=== PATIENT | female | born 1960 | race Caucasian/White ===

== ENCOUNTER 2018-07-01 11:57 | Inpatient (IN) | payer OTHER, SELFPAY ==
[2018-07-01] VITALS (9 sets, daily range): BP systolic 93–131; BP diastolic 43–73; PULSE 76–85; RESP 11–19; TEMP 36.7–37.9; O2SAT 94–97
--- NOTE | 2018-07-01 12:31 | ED.GENADUL_ITS ---
Discharge Plan Disposition Patient Disposition: [facility] INPATIENT Condition: Stable Discharge Details Chief Complaint: Abd Prob Clinical Impression: Acute appendicitis Primary Care Provider: Brenda Greene ED Provider: Roman Guevara Home Meds and New Rx's Prescriptions: No Action acetaminophen [Tylenol] 325 mg tablet 650 mg PO Q6H PRNRF: 0 calcium carbonate [Tums] 300 mg (750 mg) tablet,chewable 300 mg PO QID PRNRF: 0 ibuprofen 200 mg tablet 200 mg PO QID PRNRF: 0 prochlorperazine maleate [Compazine] 10 mg tablet 10 mg PO TID PRNRF: 0 Medical Decision Making This is a pleasant 58-year-old female who presents today for evaluation of abdominal pain, 2 episodes of vomiting. Pain is in the left lower and right lower quadrants. No urinary symptoms. She did have a small amount of bowel movement earlier today, vomit is nonbloody, but bowel movements are nonbloody. She does have a concerning history of malignancy in the left breast with chemotherapy, as well as a , and a laparoscopy after a molar . Bowel sounds are present, and there is no signs of distention, however because of her surgical history and symptoms and concern for obstruction, differential also includes appendicitis or diverticulitis. We will get a CT scan with oral and IV contrast for further evaluation. Signs and symptoms are inconsistent with mesenteric ischemia, with no pain out of proportion, and she is not have a history of A. fib or blood clots. We will treat the patient's pain, rehydrate as she looks notably dehydrated, and reassess. 3:25 PM Patient's laboratory workup is returned, she does demonstrate evidence of neut ropenia. Platelets are stable at 105, renal function stable. Absolute neutrophil count is low at 0.13. Lipase is normal, liver function is normal. CT scan results have returned and per Dr. Collazo there is evidence of an acute appendicitis. We have contacted surgery Dr. Harding, he has come and seen and assessed the patient, the patient will be brought to the OR for definitive surgical management. Enteropenem will be started. I have extensively reviewed the treatment plan with the patient. I have addressed all patient concerns at this time. I have also discussed the plan with the admitting physician and they agree with the current assessment and plan and have agreed to assume responsibility for the patient. All parties demonstrate verbal understanding and agreement with our assessment and plan at this time. Exam(s) a CT:CT abdomen & pelvis w SYMPTOMS/DIAGNOSIS: COMPLETED CHEMO FOR BREAST CA LAST WEEK, MULTIPLE ABDOMINAL SURGERIES, ? OBSTRUCTION ABDOMINAL AND PELVIC CT: CT examination of the abdomen and pelvis was performed with a bolus infusion of 100 cc of Omnipaque 350 and ingestion of dilute barium. Images obtained through the lung bases are unremarkable. Note is made of apparent thickening of the distal esophageal wall; findings could be on the basis of inflammation, but neoplastic disease is not excluded and endoscopy is suggested for further evaluation. The spleen is unremarkable in appearance. Caudate lobe of the liver contains an apparent hemangioma with peripheral nodular enhancement. There is cholelithiasis without evidence of biliary dilatation or gallbladder wall thickening. The pancreas is unremarkable. Adrenals and kidneys appear normal. No evidence of urinary tract calcification or obstruction. Abdominal aorta is of normal diameter and no major vascular abnormality is seen. No abdominal or pelvic adenopathy seen. Appendix is dilated at about 14 mm. There is apparent mild periappendiceal fat edema raising the possibility of acute appendicitis. There is a possible appendicolith in the appendiceal neck. No evidence of diverticulitis or bowel obstruction. Uterus is enlarged and contains an apparent partially calcified heterogeneous mass, which may represent a uterine fibroid. The possibility that this represents an endometrial mass is not excluded. Correlation with pelvic ultrasound recommended. CONCLUSION: 1. Findings suggesting acute appendicitis. 2. Large uterine mass. Pelvic ultrasound and/or comparison with old images requested for further evaluation. 3. Cholelithiasis. 4. Esophageal wall thickening, inflammatory versus neoplastic process. Endoscopy recommended. HPI General Date/Time Provider Initiated Documentation: 07/01/18 12:08 . HPI Narrative: This is a 58-year-old female with a past medical history of breast cancer for which she is currently receiving chemotherapy, as well as a past medical history of left breast surgery, , molar requiring laparoscopy and radiation therapy, as well as a known gallstone. She has had her first dose of chemotherapy, and she was scheduled to have her second today. Unfortunately starting last night the patient developed mild abdominal pain in the left lower and right lower abdominal quadrants. She has associated nausea as well as 2 episodes of vomiting. She has not eaten anything since last night has been able to keep small amounts of water down. She denies any dysuria, hematuria, increased urinary frequency, hematochezia, melena, acholic stool. Last bowel movement was last night and this morning with small amounts of nonbloody normal stool. She did take Tylenol but this did not change her symptoms. She denies any flank tenderness. Patient denies any other modifying factors or other complaints at this time. She denies a history of small bowel obstruction. Patient denies any IV or illicit drug use or pertinent family history. Related Data Home Medications Medication Instructions Recorded Confirmed acetaminophen 325 mg tablet 650 mg PO Q6H PRN 06/16/18 07/01/18 calcium carbonate 300 mg (750 mg) 300 mg PO QID PRN tab 06/16/18 07/01/18 chewable tablet ibuprofen 200 mg tablet 200 mg PO QID PRN 06/16/18 07/01/18 prochlorperazine maleate 10 mg 10 mg PO TID PRN 06/16/18 07/01/18 tablet Allergies Allergy/AdvReac Type Severity Reaction Status Date / Time No Known Allergies Allergy Verified 07/01/18 12:19 General Stated Complaint: Abd Prob SATISH: 2 Review of Systems Review of Systems All systems reviewed & are unremarkable except as noted in HPI and below PFSH Surgical History History of lumpectomy of left breast (Acute ~2017) H/O: section (Chronic ~1984) Family History Mother Ovarian cancer Father Alcohol abuse Lung cancer Sister Heart disease Sister Heart disease Maternal Grandfather Lung cancer Son Asthma Social History highest education level completed: some college, no degree frequency: decline to answer duration: decline to answer Smoking and Tabacco status: Former Tobacco Use quit date: 05/24/84 second hand exposure: Yes alcohol intake: current alcohol intake frequency: holidays/special occasions only Alcohol type: beer and hard liquor substance use type: does not use dolly/spiritism: [employer] special dolly needs: No Seatbelt use: always Helmet use: Yes Exam Narrative Exam Narrative: 1.Const: Well-nourished, Well-developed, appearing stated age 2.Eyes: PERRL, no conjunctival injection, and symmetrical lids. 3.ENT: Atraumatic external nose and ears. Notably dry MM. Neck: Symmetric, trachea midline, No thyromegaly. 4.CVS: +S1/S2, No murmurs or gallops. Peripheral pulses 2+ and equal in all extremities. Brisk capillary refill in all extremities. 5.RESP: Unlabored respiratory effort. Clear to auscultation bilaterally. No wheezes rales or rhonchi 6.GI: Soft, Nondistended, No hepatosplenomegaly. Notable tenderness in the right lower and left lower abdominal quadrants. No flank or CVA tenderness. Negative Gaines sign, mild pain at McBurney's point. 7.MSK: Normocephalic/Atraumatic, Extremities w/o deformity or ttp No cyanosis or clubbing, Normal movement of all extremities 8.Skin: Warm, Dry. No rashes or lesions. 9.Neuro: molder fitting II-XII grossly intact. Sensation grossly intact, no focal neurologic deficits. 10.Psych: (AAO) x3. Appropriate mood and affect Course Vital Signs Temperature 36.7 C 07/01/18 12:10 Pulse 77 07/01/18 12:10 Respiratory Rate 18 07/01/18 12:10 Blood Pressure 131/56 L 07/01/18 12:10 Pulse Oximetry 97 07/01/18 12:10 Temperature 36.7 C 07/01/18 12:10 Temperature Source Skin 07/01/18 12:10 Pulse 77 07/01/18 12:10 Respiratory Rate 18 07/01/18 12:10 Blood Pressure 131/56 L 07/01/18 12:10 Blood Pressure Position Supine 07/01/18 12:10 Pulse Oximetry 97 07/01/18 12:10 Oxygen Delivery Method Room Air 07/01/18 12:10 Oxygen Flow Rate 0 07/01/18 12:10 Pain Level 6 07/01/18 12:13 Comment 07/01/18 12:10
[2018-07-01 12:52] LABS: Lactate-non-spesis 0.9 mmol/l (0.6-1.4)
[2018-07-01] MEDS: Normal Saline 1,000 ML 1000 ML IV (12:55)
[2018-07-01] MEDS: Ondansetron 4 MG/2 ML VIAL IVP ×2 (12:56→15:38)
[2018-07-01] MEDS: MORPHine 10 MG/ML VIAL 4 MG IVP ×2 (12:56→13:20)
[2018-07-01 12:57] LABS: Absolute Basophil Count 0.02 k/cumm (0.0-0.2); Absolute Eosinophil Count 0.01 k/cumm (0.0-0.7); Absolute Lymphocyte Count 0.44 k/cumm (1.2-3.4); Absolute Monocyte Count 0.08 k/cumm (0.11-0.7); Basophils % 2.9; Eosinophils % 1.5; HCT 35.6 % (36.0-46.0); HGB 11.6 g/dL (12.0-15.5); Lymphocytes % 64.7; Mean Corp. HGB Concentration 32.6 g/dL (32.0-36.0); Mean Corpuscular Hemoglobin 30.4 pg (27.0-33.0); Mean Corpuscular Volume 93.4 fL (80-95); Mean Platelet Volume 10.5 fL (8.0-11.0); Monocytes % 11.8; Neutrophils % 19.1; RBC 3.81 m/cumm (4.00-5.20); RBC Distribution Width 12.1 % (11.7-14.6)
[2018-07-01 13:05] LABS: PTT Activated 27.1 sec (21.0-31.4)
[2018-07-01 13:12] LABS: ALT 24 U/L (12-78); AST 18 U/L (15-37); Albumin 3.2 g/dL (3.4-5.0); Alkaline Phosphatase 70 U/L (46-116); Anion Gap 6.9 mmol/L (3-11); BUN 19 mg/dL (7-18); Bilirubin, Total 0.4 mg/dL (0.2-1.0); CO2 28.1 mmol/L (21.0-32.0); CREATININE 0.62 mg/dL (0.55-1.02); Chloride 104 mmol/L (98-107); Glucose 132 mg/dL (70-100); Lipase 57 U/L (73-393); Potassium 3.7 mmol/L (3.5-5.1); Sodium 139 mmol/L (136-145); Total Protein 6.8 g/dL (6.4-8.2)
[2018-07-01 13:13] LABS: Absolute Neutrophil Count 0.13 k/cumm (1.2-6.7); White Blood Cell Count 0.68 k/cumm (4.4-10.8)
[2018-07-01 13:14] LABS: Diff Comment Agrees w/ Instrument; Platelet Count 105 x1000/uL (130-400); RBC Morphology Normal
[2018-07-01 13:16] LABS: Calcium 8.7 mg/dL (8.5-10.1)
--- NOTE | 2018-07-01 14:39 | DI.CT_ITS ---
SYMPTOMS/DIAGNOSIS: COMPLETED CHEMO FOR BREAST CA LAST WEEK, MULTIPLE ABDOMINAL SURGERIES, ? OBSTRUCTION ABDOMINAL AND PELVIC CT: CT examination of the abdomen and pelvis was performed with a bolus infusion of 100 cc of Omnipaque 350 and ingestion of dilute barium. Images obtained through the lung bases are unremarkable. Note is made of apparent thickening of the distal esophageal wall; findings could be on the basis of inflammation, but neoplastic disease is not excluded and endoscopy is suggested for further evaluation. The spleen is unremarkable in appearance. Caudate lobe of the liver contains an apparent hemangioma with peripheral nodular enhancement. There is cholelithiasis without evidence of biliary dilatation or gallbladder wall thickening. The pancreas is unremarkable. Adrenals and kidneys appear normal. No evidence of urinary tract calcification or obstruction. Abdominal aorta is of normal diameter and no major vascular abnormality is seen. No abdominal or pelvic adenopathy seen. Appendix is dilated at about 14 mm. There is apparent mild periappendiceal fat edema raising the possibility of acute appendicitis. There is a possible appendicolith in the appendiceal neck. No evidence of diverticulitis or bowel obstruction. Uterus is enlarged and contains an apparent partially calcified heterogeneous mass, which may represent a uterine fibroid. The possibility that this represents an endometrial mass is not excluded. Correlation with pelvic ultrasound recommended. CONCLUSION: 1. Findings suggesting acute appendicitis. 2. Large uterine mass. Pelvic ultrasound and/or comparison with old images requested for further evaluation. 3. Cholelithiasis. 4. Esophageal wall thickening, inflammatory versus neoplastic process. Endoscopy recommended.
[2018-07-01] MEDS: Omnipaque 350 MG/ML 100 ML BTL IJ (14:42)
[2018-07-01] MEDS: Normal Saline Flush 10 ML SYR IVP ×2 (14:43→20:51)
[2018-07-01] MEDS: Breeza Beverage 473 ML BTL PO ×2 (14:44)
[2018-07-01 14:58] LABS: Bilirubin Negative (Negative); Blood Trace-intact (Negative); Clarity Clear; Glucose Negative (Negative); Ketones Negative (Negative); Leukocyte Esterase Negative (Negative); Nitrite Negative (Negative); Specific Gravity <= 1.005 (1.005-1.025); Urobilinogen 0.2 EU/dL (Up TO 0.2)
[2018-07-01 15:13] LABS: Bacteria Rare HPF (Negative); C & S Indicated? No; Casts Negative LPF (Negative); Crystals Negative HPF (Negative); Epithelial Cells Few HPF (Negative); Mucus Negative (Negative); Other Cells Negative (Negative); RBC 0-2 (0-2); WBC Negative HPF (0-5)
--- NOTE | 2018-07-01 15:31 | W.PM.HP.N ---
Date of service: 07/01/18 Time of Service: 15:31 Assessment and Plan (1) Acute right lower quadrant pain: Start date: 07/01/18 Start time: 15:39 Current visit: Yes Status: Acute CAT scan consistent with acute appendicitis will need arthroscopic appendectomy possible open (2) Breast cancer metastasized to axillary lymph node: Start date: 07/01/18 Start time: 15:39 Current visit: Yes Status: Acute Will discuss with patient's oncologist for any additional help in treatment of her current acute condition (3) Acute appendicitis: Start date: 07/01/18 Start time: 15:39 Current visit: Yes Status: Acute Patient for laparoscopic appendectomy possible open (4) Drug-induced leukopenia: Start date: 07/01/18 Start time: 15:39 Current visit: Yes Status: Acute Patient to receive antibiotics preoperative Case to discuss with patient's oncologist for any further recommend (5) Thrombocytopenia: Start date: 07/01/18 Start time: 15:39 Current visit: Yes Status: Chronic History of Present Illness Chief Complaint: Right lower quadrant tenderness with anorexia, nausea and vomiting Consults Consult date: 07/01/18 Requesting physician: Roman Guevara Narrative: Patient is a recent breast cancer surgery patient receiving chemotherapy. Patient has approximately 18 hours of right lower quadrant pain with anorexia and nausea and bowel Review of Systems Review of Systems All systems reviewed & are unremarkable except as noted in HPI and below Constitutional Reports as per HPI Gastrointestinal Reports as per HPI, Reports abdominal pain, Reports heartburn, Reports nausea and Reports vomiting [facility] Medical History Port-A-Cath in place (Acute) Breast cancer (Chronic) Surgical History Status post left breast lumpectomy (Acute) History of lumpectomy of left breast (Acute ~2017) H/O: section (Chronic ~1984) Family History Mother Ovarian cancer Father Alcohol abuse Lung cancer Sister Heart disease Sister Heart disease Maternal Grandfather Lung cancer Son Asthma Social History highest education level completed: some college, no degree frequency: decline to answer duration: decline to answer Smoking and Tabacco status: Former Tobacco Use quit date: 05/24/84 second hand exposure: Yes alcohol intake: current alcohol intake frequency: holidays/special occasions only Alcohol type: beer and hard liquor substance use type: does not use dolly/scientology: Islam special dolly needs: No Seatbelt use: always Helmet use: Yes Meds Home Medications Medication Instructions Recorded Confirmed Type acetaminophen 325 mg tablet 650 mg PO Q6H PRN 06/16/18 07/01/18 History calcium carbonate 300 mg (750 mg) 300 mg PO QID PRN tab 06/16/18 07/01/18 History chewable tablet ibuprofen 200 mg tablet 200 mg PO QID PRN 06/16/18 07/01/18 History prochlorperazine maleate 10 mg 10 mg PO TID PRN 06/16/18 07/01/18 History tablet Allergies Allergy/AdvReac Type Severity Reaction Status Date / Time No Known Allergies Allergy Verified 07/01/18 12:19 Exam Const General: cooperative Nutritional Appearance: average body habitus Orientation: alert, awake and oriented x3 Resp Effort & Inspection: normal respiratory effort Auscultation: clear to auscultation bilaterally Percussion: percussion normal Cardio Jugular venous pressure: no JVD Palpation: normal PMI Rate: regular rate Rhythm: regular rhythm GI Inspection: normal to inspection and incision (Lower midline from previous ) Palpation: soft, guarding in the RLQ and tender in the RLQ Percussion: normal to percussion Auscultation: hypoactive bowel sounds Abdomen image: 1. incision Results Labs : 07/01/18 12:45 07/01/18 12:45 Laboratory Results - last 24 hr 07/01/18 07/01/18 07/01/18 12:45 12:45 12:45 WBC 0.68 L* RBC 3.81 L Hgb 11.6 L Hct 35.6 L MCV 93.4 MCH 30.4 MCHC 32.6 RDW 12.1 Plt Count 105 L MPV 10.5 Immature Gran % 0.0 Neutrophils % 19.1 Lymphocytes % 64.7 Monocytes % 11.8 Eosinophils % 1.5 Basophils % 2.9 Absolute Neutrophils 0.13 L* Absolute Lymphocytes 0.44 L Absolute Monocytes 0.08 L Absolute Eosinophils 0.01 Absolute Basophils 0.02 Differential Comment Agrees w/ instrument RBC Morphology Normal APTT Sodium 139 Potassium 3.7 Chloride 104 Carbon Dioxide 28.1 Anion Gap 6.9 BUN 19 H Creatinine 0.62 Estimated GFR/1.73 m2 >= 60.00 Glucose 132 H Lactate 0.9 Calcium 8.7 Total Bilirubin 0.4 AST 18 ALT 24 Alkaline Phosphatase 70 Total Protein 6.8 Albumin 3.2 L Lipase 57 L Urine Color Urine Clarity Urine pH Ur Specific Griffith Urine Protein Urine Ketones Urine Blood Urine Nitrite Urine Bilirubin Urine Urobilinogen Ur Leukocyte Esterase Urine RBC Urine WBC Ur Epithelial Cells Urine Crystals Urine Bacteria Urine Casts Urine Mucus Urine Other Ur Culture Indicated? Urine Glucose 07/01/18 07/01/18 12:45 14:45 WBC RBC Hgb Hct MCV MCH MCHC RDW Plt Count MPV Immature Gran % Neutrophils % Lymphocytes % Monocytes % Eosinophils % Basophils % Absolute Neutrophils Absolute Lymphocytes Absolute Monocytes Absolute Eosinophils Absolute Basophils Differential Comment RBC Morphology APTT 27.1 Sodium Potassium Chloride Carbon Dioxide Anion Gap BUN Creatinine Estimated GFR/1.73 m2 Glucose Lactate Calcium Total Bilirubin AST ALT Alkaline Phosphatase Total Protein Albumin Lipase Urine Color Yellow Urine Clarity Clear Urine pH 6.0 Ur Specific Griffith <= 1.005 Urine Protein Negative Urine Ketones Negative Urine Blood Trace-intact H Urine Nitrite Negative Urine Bilirubin Negative Urine Urobilinogen 0.2 Ur Leukocyte Esterase Negative Urine RBC 0-2 Urine WBC Negative Ur Epithelial Cells Few Urine Crystals Negative Urine Bacteria Rare Urine Casts Negative Urine Mucus Negative Urine Other Negative Ur Culture Indicated? No Urine Glucose Negative Last Vital Signs Temp 36.7 C 07/01/18 12:10 Pulse 77 07/01/18 12:10 Resp 18 07/01/18 12:10 BP 131/56 L 07/01/18 12:10 Pulse Ox 97 07/01/18 12:10
--- NOTE | 2018-07-01 15:41 | HPE_ITS ---
Date of service: 07/01/18 Time of Service: 15:31 Assessment and Plan (1) Acute right lower quadrant pain: Start date: 07/01/18 Start time: 15:39 Current visit: Yes Status: Acute CAT scan consistent with acute appendicitis will need arthroscopic appendectomy possible open (2) Breast cancer metastasized to axillary lymph node: Start date: 07/01/18 Start time: 15:39 Current visit: Yes Status: Acute Will discuss with patient's oncologist for any additional help in treatment of her current acute condition (3) Acute appendicitis: Start date: 07/01/18 Start time: 15:39 Current visit: Yes Status: Acute Patient for laparoscopic appendectomy possible open (4) Drug-induced leukopenia: Start date: 07/01/18 Start time: 15:39 Current visit: Yes Status: Acute Patient to receive antibiotics preoperative Case to discuss with patient's oncologist for any further recommend (5) Thrombocytopenia: Start date: 07/01/18 Start time: 15:39 Current visit: Yes Status: Chronic History of Present Illness Chief Complaint: Right lower quadrant tenderness with anorexia, nausea and vomiting Consults Consult date: 07/01/18 Requesting physician: Roman Guevara Narrative: Patient is a recent breast cancer surgery patient receiving chemotherapy. Patient has approximately 18 hours of right lower quadrant pain with anorexia and nausea and bowel Review of Systems Review of Systems All systems reviewed & are unremarkable except as noted in HPI and below Constitutional Reports as per HPI Gastrointestinal Reports as per HPI, Reports abdominal pain, Reports heartburn, Reports nausea and Reports vomiting [facility] Medical History Port-A-Cath in place (Acute) Breast cancer (Chronic) Surgical History Status post left breast lumpectomy (Acute) History of lumpectomy of left breast (Acute ~2017) H/O: section (Chronic ~1984) Family History Mother Ovarian cancer Father Alcohol abuse Lung cancer Sister Heart disease Sister Heart disease Maternal Grandfather Lung cancer Son Asthma Social History highest education level completed: some college, no degree frequency: decline to answer duration: decline to answer Smoking and Tabacco status: Former Tobacco Use quit date: 05/24/84 second hand exposure: Yes alcohol intake: current alcohol intake frequency: holidays/special occasions only Alcohol type: beer and hard liquor substance use type: does not use dolly/pentecostal: [employer] special dolly needs: No Seatbelt use: always Helmet use: Yes Meds Home Medications Medication Instructions Recorded Confirmed Type acetaminophen 325 mg tablet 650 mg PO Q6H PRN 06/16/18 07/01/18 History calcium carbonate 300 mg (750 mg) 300 mg PO QID PRN tab 06/16/18 07/01/18 History chewable tablet ibuprofen 200 mg tablet 200 mg PO QID PRN 06/16/18 07/01/18 History prochlorperazine maleate 10 mg 10 mg PO TID PRN 06/16/18 07/01/18 History tablet Allergies Allergy/AdvReac Type Severity Reaction Status Date / Time No Known Allergies Allergy Verified 07/01/18 12:19 Exam Const General: cooperative Nutritional Appearance: average body habitus Orientation: alert, awake and oriented x3 Resp Effort & Inspection: normal respiratory effort Auscultation: clear to auscultation bilaterally Percussion: percussion normal Cardio Jugular venous pressure: no JVD Palpation: normal PMI Rate: regular rate Rhythm: regular rhythm GI Inspection: normal to inspection and incision (Lower midline from previous C- section) Palpation: soft, guarding in the RLQ and tender in the RLQ Percussion: normal to percussion Auscultation: hypoactive bowel sounds Abdomen image: 1. incision Results Labs : 07/01/18 12:45 07/01/18 12:45 Laboratory Results - last 24 hr 07/01/18 07/01/18 07/01/18 12:45 12:45 12:45 WBC 0.68 L* RBC 3.81 L Hgb 11.6 L Hct 35.6 L MCV 93.4 MCH 30.4 MCHC 32.6 RDW 12.1 Plt Count 105 L MPV 10.5 Immature Gran % 0.0 Neutrophils % 19.1 Lymphocytes % 64.7 Monocytes % 11.8 Eosinophils % 1.5 Basophils % 2.9 Absolute Neutrophils 0.13 L* Absolute Lymphocytes 0.44 L Absolute Monocytes 0.08 L Absolute Eosinophils 0.01 Absolute Basophils 0.02 Differential Comment Agrees w/ instrument RBC Morphology Normal APTT Sodium 139 Potassium 3.7 Chloride 104 Carbon Dioxide 28.1 Anion Gap 6.9 BUN 19 H Creatinine 0.62 Estimated GFR/1.73 m2 >= 60.00 Glucose 132 H Lactate 0.9 Calcium 8.7 Total Bilirubin 0.4 AST 18 ALT 24 Alkaline Phosphatase 70 Total Protein 6.8 Albumin 3.2 L Lipase 57 L Urine Color Urine Clarity Urine pH Ur Specific [place] Urine Protein Urine Ketones Urine Blood Urine Nitrite Urine Bilirubin Urine Urobilinogen Ur Leukocyte Esterase Urine RBC Urine WBC Ur Epithelial Cells Urine Crystals Urine Bacteria Urine Casts Urine Mucus Urine Other Ur Culture Indicated? Urine Glucose 07/01/18 07/01/18 12:45 14:45 WBC RBC Hgb Hct MCV MCH MCHC RDW Plt Count MPV Immature Gran % Neutrophils % Lymphocytes % Monocytes % Eosinophils % Basophils % Absolute Neutrophils Absolute Lymphocytes Absolute Monocytes Absolute Eosinophils Absolute Basophils Differential Comment RBC Morphology APTT 27.1 Sodium Potassium Chloride Carbon Dioxide Anion Gap BUN Creatinine Estimated GFR/1.73 m2 Glucose Lactate Calcium Total Bilirubin AST ALT Alkaline Phosphatase Total Protein Albumin Lipase Urine Color Yellow Urine Clarity Clear Urine pH 6.0 Ur Specific [place] <= 1.005 Urine Protein Negative Urine Ketones Negative Urine Blood Trace-intact H Urine Nitrite Negative Urine Bilirubin Negative Urine Urobilinogen 0.2 Ur Leukocyte Esterase Negative Urine RBC 0-2 Urine WBC Negative Ur Epithelial Cells Few Urine Crystals Negative Urine Bacteria Rare Urine Casts Negative Urine Mucus Negative Urine Other Negative Ur Culture Indicated? No Urine Glucose Negative Last Vital Signs Temp 36.7 C 07/01/18 12:10 Pulse 77 07/01/18 12:10 Resp 18 07/01/18 12:10 BP 131/56 L 07/01/18 12:10 Pulse Ox 97 07/01/18 12:10
[2018-07-01] MEDS: Metoclopramide 10 MG/2 ML VIAL IVP (16:07)
[2018-07-01] MEDS: Lactated Ringers 1,000 ML 75 ML IV ×2 (16:11→20:50)
--- NOTE | 2018-07-01 17:26 | APP_PTH ---
PATIENT: Nakul Joseph LOC: U#:[id number] AGE/SX: 58/F ROOM: 218 RE07/01/[address]: Alan Harding III : 1960 BED: A DIS: 07/02/2018 SPEC #: [id number] RECD: 07/01/18 18:13 STATUS: DARSHANA RERadha #: [id number] DEXTER: 07/01/18 17:[address]: Alan Harding III DEPT: Surgical Specimen RECD BY: Genesis Hall ENTERED: 07/01/18 18:14 SP TYPE: Appendix OTHR DR: Brenda Greene MD Tissues: 1 - APPENDIX NOT INCIDENTAL Procedures: GROSS AND MICRO LEVEL 3 Comments: [id number]
[2018-07-01] MEDS: Lidocaine 1% Multi-Dose 50 ML VIAL (17:39)
[2018-07-01] MEDS: Bupivacaine 0.5% Pres-Free 30 ML VIAL (17:39)
--- NOTE | 2018-07-01 18:00 | W.PM.OP ---
Date of service: 07/01/18 Time of Service: 18:01 Operative Note DATE OF PROCEDURE: 07/01/18 PRE-OP DIAGNOSIS: acute appendicitis POST-OP DIAGNOSIS: same PROCEDURE: lap appy SURGEON: Alan Harding III ASSISTING SURGEON: Shira Cruz ANESTHESIA: GETA ESTIMATED BLOOD LOSS: 5 PATHOLOGY: other (appendix) COMPLICATIONS: None Patient was transported to: PACU Patient's condition: stable
--- NOTE | 2018-07-01 18:05 | HPE_ITS ---
Date of service: 07/01/18 Time of Service: 15:04 FORMERLY [facility], [facility] Medical History Port-A-Cath in place (Acute) Breast cancer (Chronic) Surgical History Status post left breast lumpectomy (Acute) History of lumpectomy of left breast (Acute ~2017) H/O: section (Chronic ~1984) Family History Mother Ovarian cancer Father Alcohol abuse Lung cancer Sister Heart disease Sister Heart disease Maternal Grandfather Lung cancer Son Asthma Social History highest education level completed: some college, no degree frequency: decline to answer duration: decline to answer Smoking and Tabacco status: Former Tobacco Use quit date: 05/24/84 second hand exposure: Yes alcohol intake: current alcohol intake frequency: holidays/special occasions only Alcohol type: beer and hard liquor substance use type: does not use dolly/sabianist: Taoist special dolly needs: No Seatbelt use: always Helmet use: Yes Meds Home Medications Medication Instructions Recorded Confirmed Type acetaminophen 325 mg tablet 650 mg PO Q6H PRN 06/16/18 07/01/18 History calcium carbonate 300 mg (750 mg) 300 mg PO QID PRN tab 06/16/18 07/01/18 History chewable tablet ibuprofen 200 mg tablet 200 mg PO QID PRN 06/16/18 07/01/18 History prochlorperazine maleate 10 mg 10 mg PO TID PRN 06/16/18 07/01/18 History tablet Allergies Allergy/AdvReac Type Severity Reaction Status Date / Time No Known Allergies Allergy Verified 07/01/18 12:19 Results Labs : 07/01/18 12:45 07/01/18 12:45 Laboratory Results - last 24 hr 07/01/18 07/01/18 07/01/18 12:45 12:45 12:45 WBC 0.68 L* RBC 3.81 L Hgb 11.6 L Hct 35.6 L MCV 93.4 MCH 30.4 MCHC 32.6 RDW 12.1 Plt Count 105 L MPV 10.5 Immature Gran % 0.0 Neutrophils % 19.1 Lymphocytes % 64.7 Monocytes % 11.8 Eosinophils % 1.5 Basophils % 2.9 Absolute Neutrophils 0.13 L* Absolute Lymphocytes 0.44 L Absolute Monocytes 0.08 L Absolute Eosinophils 0.01 Absolute Basophils 0.02 Differential Comment Agrees w/ instrument RBC Morphology Normal APTT Sodium 139 Potassium 3.7 Chloride 104 Carbon Dioxide 28.1 Anion Gap 6.9 BUN 19 H Creatinine 0.62 Estimated GFR/1.73 m2 >= 60.00 Glucose 132 H Lactate 0.9 Calcium 8.7 Total Bilirubin 0.4 AST 18 ALT 24 Alkaline Phosphatase 70 Total Protein 6.8 Albumin 3.2 L Lipase 57 L Urine Color Urine Clarity Urine pH Ur Specific [place] Urine Protein Urine Ketones Urine Blood Urine Nitrite Urine Bilirubin Urine Urobilinogen Ur Leukocyte Esterase Urine RBC Urine WBC Ur Epithelial Cells Urine Crystals Urine Bacteria Urine Casts Urine Mucus Urine Other Ur Culture Indicated? Urine Glucose 07/01/18 07/01/18 12:45 14:45 WBC RBC Hgb Hct MCV MCH MCHC RDW Plt Count MPV Immature Gran % Neutrophils % Lymphocytes % Monocytes % Eosinophils % Basophils % Absolute Neutrophils Absolute Lymphocytes Absolute Monocytes Absolute Eosinophils Absolute Basophils Differential Comment RBC Morphology APTT 27.1 Sodium Potassium Chloride Carbon Dioxide Anion Gap BUN Creatinine Estimated GFR/1.73 m2 Glucose Lactate Calcium Total Bilirubin AST ALT Alkaline Phosphatase Total Protein Albumin Lipase Urine Color Yellow Urine Clarity Clear Urine pH 6.0 Ur Specific [place] <= 1.005 Urine Protein Negative Urine Ketones Negative Urine Blood Trace-intact H Urine Nitrite Negative Urine Bilirubin Negative Urine Urobilinogen 0.2 Ur Leukocyte Esterase Negative Urine RBC 0-2 Urine WBC Negative Ur Epithelial Cells Few Urine Crystals Negative Urine Bacteria Rare Urine Casts Negative Urine Mucus Negative Urine Other Negative Ur Culture Indicated? No Urine Glucose Negative Last Vital Signs Temp 36.7 C 07/01/18 12:10 Pulse 77 07/01/18 12:10 Resp 18 07/01/18 12:10 BP 131/56 L 07/01/18 12:10 Pulse Ox 97 07/01/18 12:10
--- NOTE | 2018-07-01 18:11 | ROE_ITS ---
Date of service: 07/01/18 Time of Service: 18:06 Operative Note DATE OF PROCEDURE: 07/01/18 PRE-OP DIAGNOSIS: Acute appendicitis POST-OP DIAGNOSIS: same PROCEDURE: Laparoscopic appendectomy SURGEON: Alan Harding III ASSISTING SURGEON: Shira Cruz ANESTHESIA: GETA ESTIMATED BLOOD LOSS: 5 PATHOLOGY: other (appendix) COMPLICATIONS: None Patient was transported to: PACU Patient's condition: stable Procedure Description: Patient was seen in the emergency department. Patient had a approximately 12-18-hour history of right lower quadrant pain with anorexia nausea and vomiting. Patient had just undergone her first episode of chemotherapy for breast cancer. On physical exam she had a consistent exam with acute appendicitis. All risks benefits and alternatives were discussed with patient and consent was obtained. Patient's oncologist was contacted as well concerning her recent chemotherapy treatment and any concerns he had about her operation. Patient was brought to the operating room and placed on the operating table supine fashion. Patient underwent general anesthesia endotracheal intubation. A thorough timeout was done with the entire or staff present. Patient's abdomen was prepped and draped in a sterile fashion. Local anesthesia was infiltrated into the area of the supraumbilical portion of her abdomen and a 11 blade used to incise the skin down to the level of fascia the fascia was incised with a 15 blade and abdomen open a 12 mm Holguin trocar was inserted in the abdomen abdomen insufflated to 15 mmHg upon entry into the abdomen a thorough exploratory laparoscopy was performed and no adhesions were noted midline where her previous had been done. Patient had 2 5 mm ports placed midline under direct vision. Patient was p ositioned on the table appropriately with right side up head down and the appendix was identified the appendix was retracted and there was some inferior adhesions that were taken down with Bovie cautery. Patient had the appendix extended all bonds anatomy noted and a [place] dissector used at the base of the mesoappendix and the appendix. At this point a window was created and a vascular DAVID load was used to transect the base of the appendix. A second vascular load was used at the mesoappendix and this was transected the appendix was placed in Endo Catch bag. Bovie cautery was used with the edge of the mesoappendix for some mild oozing. Patient had irrigation of the area with no evidence of any spillage at all. She had all ports taken under direct vision the appendix was removed in the Endo Catch bag and sent for pathology. Patient had the fascia closed with a [id number] 0 Vicryl suture and all skin was closed with 4-0 Vicryl. Dermabond used at the skin level. A thorough debriefing was done with the entire or staff present. Patient's family and daughter were notified of the intraoperative findings and procedures. Patient was moved the PACU and then floor upon full recovery from anesthesia.
[2018-07-01] MEDS: Acetaminophen 325 MG TAB 650 MG PO (23:51)
--- NOTE | 2018-07-02 01:43 | NUR.NOTE ---
Nursing Note: Patient is anxious, verbalized of not breathing and showing her abdomen with large rounded area which is firm to touched. No respiratory distress noted, Lung sounds with intermittent audible crackles on upper lobes and diminished on lower bases. Peg sites is clean,dry and intact. Tube feeding rate was increased to 78 cc/hr. Received Lasix IVP as stat order
--- NOTE | 2018-07-02 03:15 | NUR.NOTE ---
Nursing Note: Patient received on bed, talking on the phone. Unable to do nursing assessment right away. Above IVFluids bag was empty hooked up on right mid chest port. Flushed with NS , patent and with good blood returned. Incisions sites on abdomen are glued and clean,dry and intact. Denied of post op pain, independent to go to the toilet. Verbalized of having headache, medicated with tylenol. and with good effect. Neutropenic precautions observed. Call lights at reach.
[2018-07-02 03:24] VITALS: BP 99/63; PULSE 75; RESP 18; TEMP 37; O2SAT 96
[2018-07-02] MEDS: HYDROmorphone 2 MG/ML VIAL IVP (03:36)
[2018-07-02] MEDS: Normal Saline Flush 10 ML SYR IVP ×4 (03:37→10:22)
[2018-07-02 07:55] LABS: Abs Immature Grans 0.03 k/cumm (0.0-0.09); HCT 31.1 % (36.0-46.0); Mean Corp. HGB Concentration 32.2 g/dL (32.0-36.0); Mean Corpuscular Volume 93.4 fL (80-95); Mean Platelet Volume 10.7 fL (8.0-11.0); RBC 3.33 m/cumm (4.00-5.20); RBC Distribution Width 12.1 % (11.7-14.6)
[2018-07-02] MEDS: Ondansetron 4 MG/2 ML VIAL IVP (08:02)
[2018-07-02 08:07] LABS: Anion Gap 6.4 mmol/L (3-11); BUN 10 mg/dL (7-18); CO2 30.6 mmol/L (21.0-32.0); CREATININE 0.64 mg/dL (0.55-1.02); Calcium 8.1 mg/dL (8.5-10.1); Chloride 104 mmol/L (98-107); Glucose 98 mg/dL (70-100); Potassium 3.6 mmol/L (3.5-5.1); Sodium 141 mmol/L (136-145)
[2018-07-02 08:24] LABS: Platelet Count 100 x1000/uL (130-400); White Blood Cell Count 1.66 k/cumm (4.4-10.8)
[2018-07-02 08:25] LABS: Absolute Lymphocyte Count 0.95 k/cumm (1.2-3.4); Absolute Monocyte Count 0.12 k/cumm (0.11-0.7)
[2018-07-02 08:26] LABS: Absolute Neutrophil Count 0.58 k/cumm (1.2-6.7); Diff Comment Manual Differential; RBC Morphology Normal
--- NOTE | 2018-07-02 08:45 | W.PM.PROGNOT ---
Date of Service Date of service: 07/02/18 Time of Service: 08:45 Assessment and Plan (1) Acute appendicitis: Start date: 07/02/18 Start time: 08:46 Current visit: Yes Status: Acute pt looks great she is doing well min pain will advance her diet continues on precautions pt up and about will advance diet labs reviewed will give one more dose of IV antibiotics unsure of efficacy but with profound leukocytopenia think its warrented labs reviewed and wbc up poss dc if tyler diet today Subjective Patient reports: no new complaints, feels better, pain is less and tolerating liquids well Exam Const General: cooperative Orientation: alert, awake and oriented x3 GI Inspection: normal to inspection and incision Palpation: soft Percussion: normal to percussion Auscultation: normal bowel sounds Abdomen image: 1. lap appy incisions 2. 3. Objective Objective Clinical Data: Abnormal lab results 07/01/18 07/01/18 07/01/18 Range/Units 12:45 12:45 14:45 WBC 0.68 L* (4.4-10.8) k/cumm RBC 3.81 L (4.00-5.20) m/cumm Hgb 11.6 L (12.0-15.5) g/dL Hct 35.6 L (36.0-46.0) % Plt Count 105 L (130-400) x1000/uL Absolute Neutrophils 0.13 L* (1.2-6.7) k/cumm Absolute Lymphocytes 0.44 L (1.2-3.4) k/cumm Absolute Monocytes 0.08 L (0.11-0.7) k/cumm BUN 19 H (7-18) mg/dL Glucose 132 H (70-100) mg/dL Calcium (8.5-10.1) mg/dL Albumin 3.2 L (3.4-5.0) g/dL Lipase 57 L (73-393) U/L Urine Blood Trace-intact H (Negative) 07/02/18 07/02/18 Range/Units 07:00 07:00 WBC 1.66 L* D (4.4-10.8) k/cumm RBC 3.33 L (4.00-5.20) m/cumm Hgb 10.0 L (12.0-15.5) g/dL Hct 31.1 L (36.0-46.0) % Plt Count 100 L (130-400) x1000/uL Absolute Neutrophils 0.58 L (1.2-6.7) k/cumm Absolute Lymphocytes 0.95 L (1.2-3.4) k/cumm Absolute Monocytes (0.11-0.7) k/cumm BUN (7-18) mg/dL Glucose (70-100) mg/dL Calcium 8.1 L (8.5-10.1) mg/dL Albumin (3.4-5.0) g/dL Lipase (73-393) U/L Urine Blood (Negative) Vital Signs Temperature 37.0 C 07/02/18 03:24 Temperature Source Tympanic 07/02/18 03:24 Pulse 75 07/02/18 03:24 Pulse Rhythm Regular 07/01/18 22:44 Respiratory Rate 18 07/02/18 03:24 Respiratory Effort 07/01/18 22:44 Respiratory Depth Normal 07/01/18 22:44 Respiratory Pattern Normal 07/01/18 22:44 Blood Pressure 99/63 L 07/02/18 03:24 Blood Pressure Position Supine 07/01/18 12:10 Pulse Oximetry 96 07/02/18 03:24 Respiratory End-tidal CO2 44 07/01/18 18:42 Oxygen Delivery Method Room Air 07/02/18 03:24 Oxygen Flow Rate 0 07/02/18 03:24 Pain Level 2 07/02/18 08:02 Comment 07/01/18 12:10 Intake & Output 07/01/18 07/01/18 07/02/18 11:59 23:59 11:59 Intake Total 776.25 / 776.25 160 / 160 Output Total 400 / 400 Balance 776.25 / 776.25 -240 / -240 Weight 83.3 kg Intake: IV 776.25 / 776.25 Oral 160 / 160 Output: Urine 400 / 400 Other: Urine Color Yellow Urine Appearance Clear Clear Emesis Description None Voiding Methods Toilet Laboratory Results WBC 1.66 k/cumm (4.4-10.8) L* D 07/02/18 07:00 RBC 3.33 m/cumm (4.00-5.20) L 07/02/18 07:00 Hgb 10.0 g/dL (12.0-15.5) L 07/02/18 07:00 Hct 31.1 % (36.0-46.0) L 07/02/18 07:00 MCV 93.4 fL (80-95) 07/02/18 07:00 MCH 30.0 pg (27.0-33.0) 07/02/18 07:00 MCHC 32.2 g/dL (32.0-36.0) 07/02/18 07:00 RDW 12.1 % (11.7-14.6) 07/02/18 07:00 Plt Count 100 x1000/uL (130-400) L 07/02/18 07:00 MPV 10.7 fL (8.0-11.0) 07/02/18 07:00 Immature Gran % See Differential 07/02/18 07:00 Neutrophils % 27.0 07/02/18 07:00 Band Neutrophils % 8.0 % 07/02/18 07:00 Lymphocytes % 57.0 07/02/18 07:00 Monocytes % 7.0 07/02/18 07:00 Eosinophils % 0.0 07/02/18 07:00 Basophils % 0.0 07/02/18 07:00 Absolute Neutrophils 0.58 k/cumm (1.2-6.7) L 07/02/18 07:00 Absolute Lymphocytes 0.95 k/cumm (1.2-3.4) L 07/02/18 07:00 Absolute Monocytes 0.12 k/cumm (0.11-0.7) 07/02/18 07:00 Absolute Eosinophils 0.00 k/cumm (0.0-0.7) 07/02/18 07:00 Absolute Basophils 0.00 k/cumm (0.0-0.2) 07/02/18 07:00 Metamyelocytes 1.0 % 07/02/18 07:00 Differential Comment Manual differential 07/02/18 07:00 RBC Morphology Normal 07/02/18 07:00 APTT 27.1 sec (21.0-31.4) 07/01/18 12:45 Sodium 141 mmol/L (136-145) 07/02/18 07:00 Potassium 3.6 mmol/L (3.5-5.1) 07/02/18 07:00 Chloride 104 mmol/L (98-107) 07/02/18 07:00 Carbon Dioxide 30.6 mmol/L (21.0-32.0) 07/02/18 07:00 Anion Gap 6.4 mmol/L (3-11) 07/02/18 07:00 BUN 10 mg/dL (7-18) D 07/02/18 07:00 Creatinine 0.64 mg/dL (0.55-1.02) 07/02/18 07:00 Estimated GFR/1.73 m2 >= 60.00 (mL/min/1.73m2) 07/02/18 07:00 Glucose 98 mg/dL (70-100) 07/02/18 07:00 Lactate 0.9 mmol/l (0.6-1.4) 07/01/18 12:45 Calcium 8.1 mg/dL (8.5-10.1) L 07/02/18 07:00 Total Bilirubin 0.4 mg/dL (0.2-1.0) 07/01/18 12:45 AST 18 U/L (15-37) 07/01/18 12:45 ALT 24 U/L (12-78) 07/01/18 12:45 Alkaline Phosphatase 70 U/L (46-116) 07/01/18 12:45 Total Protein 6.8 g/dL (6.4-8.2) 07/01/18 12:45 Albumin 3.2 g/dL (3.4-5.0) L 07/01/18 12:45 Lipase 57 U/L (73-393) L 07/01/18 12:45 Urine Color Yellow (Yellow) 07/01/18 14:45 Urine Clarity Clear 07/01/18 14:45 Urine pH 6.0 (5-8) 07/01/18 14:45 Ur Specific [place] <= 1.005 (1.005-1.025) 07/01/18 14:45 Urine Protein Negative mg/dL (Negative) 07/01/18 14:45 Urine Ketones Negative mg/dL (Negative) 07/01/18 14:45 Urine Blood Trace-intact (Negative) H 07/01/18 14:45 Urine Nitrite Negative (Negative) 07/01/18 14:45 Urine Bilirubin Negative (Negative) 07/01/18 14:45 Urine Urobilinogen 0.2 EU/dL (Up TO 0.2) 07/01/18 14:45 Ur Leukocyte Esterase Negative (Negative) 07/01/18 14:45 Urine RBC 0-2 (0-2) 07/01/18 14:45 Urine WBC Negative HPF (0-5) 07/01/18 14:45 Ur Epithelial Cells Few HPF (Negative) 07/01/18 14:45 Urine Crystals Negative HPF (Negative) 07/01/18 14:45 Urine Bacteria Rare HPF (Negative) 07/01/18 14:45 Urine Casts Negative LPF (Negative) 07/01/18 14:45 Urine Mucus Negative (Negative) 07/01/18 14:45 Urine Other Negative (Negative) 07/01/18 14:45 Ur Culture Indicated? No 07/01/18 14:45 Urine Glucose Negative mg/dL (Negative) 07/01/18 14:45
--- NOTE | 2018-07-02 09:04 | DSE_ITS ---
Date of service: 07/02/18 Time of Service: 09:02 DS: Diagnosis Discharge Diagnosis (1) Acute appendicitis: Status: Acute Discharge Plan Disposition Patient Disposition: HOME Condition: Stable Discharge Details Reason For Visit: ACUTE APPENDICITIS Admit Date/Time: 07/01/18 16:25 Admit Provider: Alan Harding III Attending Provider: Alan Harding III Primary Care Provider: [place] [facility] Course Hospital Course: Patient presented to the emergency department with an acute abdomen with anorexia and nausea and vomiting. Patient's physical exam as well as CAT scan were consistent with acute appendicitis. Patient has a significant past surgical and medical history of breast cancer with her first episode of chem otherapy this past week. Patient presented with a white blood cell of 0.6 and I contacted her oncologist for any additional information in aiding in her care. Patient was taken to the operating room and had a lap appendectomy uneventfully performed. Patient this morning tolerating regular diet and her white count went to 1.6 which is expected as per the oncologist and her medication given post chemotherapy. Patient is active and out of bed able to ambulate to the bathroom and tolerating a diet currently. Her incisions are clean dry and intact and she is ready for discharge after her dose of IV antibiotics. Patient to follow-up in my office within 1-2 weeks. Home Meds and New Rx's Prescriptions: Continued acetaminophen [Tylenol] 325 mg tablet 650 mg PO Q6H PRNRF: 0 calcium carbonate [Tums] 300 mg (750 mg) tablet,chewable 300 mg PO QID PRNRF: 0 ibuprofen 200 mg tablet 200 mg PO QID PRNRF: 0 prochlorperazine maleate [Compazine] 10 mg tablet 10 mg PO TID PRNRF: 0 Discharge Instructions Activity:: Activity as Tolerated Equipment/Supplies:: No Equipment Needed Diet:: As Tolerated DS: Summary Status at Discharge Functional status at discharge: independent ambulation Overall status at discharge: patient is back to baseline Time Spent with Patient Greater than 30 minutes Quality: AMI Clinical Trial Participant: No Quality: VTE Deep Vein Thrombosis/Pulmonary Embolism Present on Admission: No Exam Const General: cooperative Orientation: alert, awake and oriented x3 GI Inspection: normal to inspection and incision Palpation: soft Percussion: normal to percussion Auscultation: normal bowel sounds DS: Data Vitals/I&O Vitals and I&O: Vital Signs Temperature 37.0 C 07/02/18 03:24 Temperature Source Tympanic 07/02/18 03:24 Pulse 75 07/02/18 03:24 Pulse Rhythm Regular 07/01/18 22:44 Respiratory Rate 18 07/02/18 03:24 Respiratory Effort 07/01/18 22:44 Respiratory Depth Normal 07/01/18 22:44 Respiratory Pattern Normal 07/01/18 22:44 Blood Pressure 99/63 L 07/02/18 03:24 Blood Pressure Position Supine 07/01/18 12:10 Pulse Oximetry 96 07/02/18 03:24 Respiratory End-tidal CO2 44 07/01/18 18:42 Oxygen Delivery Method Room Air 07/02/18 03:24 Oxygen Flow Rate 0 07/02/18 03:24 Pain Level 2 07/02/18 08:02 Comment 07/01/18 12:10 Intake & Output 07/01/18 07/01/18 07/02/18 11:59 23:59 11:59 Intake Total 776.25 / 776.25 160 / 160 Output Total 400 / 400 Balance 776.25 / 776.25 -240 / -240 Weight 83.3 kg Intake: IV 776.25 / 776.25 Oral 160 / 160 Output: Urine 400 / 400 Other: Urine Color Yellow Urine Appearance Clear Clear Emesis Description None Voiding Methods Toilet Labs on day of discharge: Labs from last 24 hours 07/02/18 07/02/18 07/01/18 07:00 07:00 14:45 WBC 1.66 L* D RBC 3.33 L Hgb 10.0 L Hct 31.1 L MCV 93.4 MCH 30.0 MCHC 32.2 RDW 12.1 Plt Count 100 L MPV 10.7 Immature Gran % See Differential Neutrophils % 27.0 Band Neutrophils % 8.0 Lymphocytes % 57.0 Monocytes % 7.0 Eosinophils % 0.0 Basophils % 0.0 Absolute Neutrophils 0.58 L Absolute Lymphocytes 0.95 L Absolute Monocytes 0.12 Absolute Eosinophils 0.00 Absolute Basophils 0.00 Metamyelocytes 1.0 Differential Comment Manual differential RBC Morphology Normal APTT Sodium 141 Potassium 3.6 Chloride 104 Carbon Dioxide 30.6 Anion Gap 6.4 BUN 10 D Creatinine 0.64 Estimated GFR/1.73 m2 >= 60.00 Glucose 98 Lactate Calcium 8.1 L Total Bilirubin AST ALT Alkaline Phosphatase Total Protein Albumin Lipase Urine Color Yellow Urine Clarity Clear Urine pH 6.0 Ur Specific [place] <= 1.005 Urine Protein Negative Urine Ketones Negative Urine Blood Trace-intact H Urine Nitrite Negative Urine Bilirubin Negative Urine Urobilinogen 0.2 Ur Leukocyte Esterase Negative Urine RBC 0-2 Urine WBC Negative Ur Epithelial Cells Few Urine Crystals Negative Urine Bacteria Rare Urine Casts Negative Urine Mucus Negative Urine Other Negative Ur Culture Indicated? No Urine Glucose Negative 07/01/18 07/01/18 07/01/18 12:45 12:45 12:45 WBC 0.68 L* RBC 3.81 L Hgb 11.6 L Hct 35.6 L MCV 93.4 MCH 30.4 MCHC 32.6 RDW 12.1 Plt Count 105 L MPV 10.5 Immature Gran % 0.0 Neutrophils % 19.1 Band Neutrophils % Lymphocytes % 64.7 Monocytes % 11.8 Eosinophils % 1.5 Basophils % 2.9 Absolute Neutrophils 0.13 L* Absolute Lymphocytes 0.44 L Absolute Monocytes 0.08 L Absolute Eosinophils 0.01 Absolute Basophils 0.02 Metamyelocytes Differential Comment Agrees w/ instrument RBC Morphology Normal APTT 27.1 Sodium Potassium Chloride Carbon Dioxide Anion Gap BUN Creatinine Estimated GFR/1.73 m2 Glucose Lactate 0.9 Calcium Total Bilirubin AST ALT Alkaline Phosphatase Total Protein Albumin Lipase Urine Color Urine Clarity Urine pH Ur Specific [place] Urine Protein Urine Ketones Urine Blood Urine Nitrite Urine Bilirubin Urine Urobilinogen Ur Leukocyte Esterase Urine RBC Urine WBC Ur Epithelial Cells Urine Crystals Urine Bacteria Urine Casts Urine Mucus Urine Other Ur Culture Indicated? Urine Glucose 07/01/18 12:45 WBC RBC Hgb Hct MCV MCH MCHC RDW Plt Count MPV Immature Gran % Neutrophils % Band Neutrophils % Lymphocytes % Monocytes % Eosinophils % Basophils % Absolute Neutrophils Absolute Lymphocytes Absolute Monocytes Absolute Eosinophils Absolute Basophils Metamyelocytes Differential Comment RBC Morphology APTT Sodium 139 Potassium 3.7 Chloride 104 Carbon Dioxide 28.1 Anion Gap 6.9 BUN 19 H Creatinine 0.62 Estimated GFR/1.73 m2 >= 60.00 Glucose 132 H Lactate Calcium 8.7 Total Bilirubin 0.4 AST 18 ALT 24 Alkaline Phosphatase 70 Total Protein 6.8 Albumin 3.2 L Lipase 57 L Urine Color Urine Clarity Urine pH Ur Specific [place] Urine Protein Urine Ketones Urine Blood Urine Nitrite Urine Bilirubin Urine Urobilinogen Ur Leukocyte Esterase Urine RBC Urine WBC Ur Epithelial Cells Urine Crystals Urine Bacteria Urine Casts Urine Mucus Urine Other Ur Culture Indicated? Urine Glucose PFSH Medical History Port-A-Cath in place (Acute) Breast cancer (Chronic) Surgical History Status post left breast lumpectomy (Acute) History of lumpectomy of left breast (Acute ~2017) H/O: section (Chronic ~1984) Family History Mother Ovarian cancer Father Alcohol abuse Lung cancer Sister Heart disease Sister Heart disease Maternal Grandfather Lung cancer Son Asthma Social History highest education level completed: some college, no degree frequency: decline to answer duration: decline to answer Smoking and Tabacco status: Former Tobacco Use quit date: 05/24/84 second hand exposure: Yes alcohol intake: current alcohol intake frequency: holidays/special occasions only Alcohol type: beer and hard liquor substance use type: does not use dolly/amish: Mosque special dolly needs: No Seatbelt use: always Helmet use: Yes
[2018-07-02] MEDS: Enoxaparin 30 MG/0.3 ML SYR SC (09:09)
[2018-07-02] MEDS: Heparin 500 UNITS/5 ML SYRINGE IVP (10:23)
[2018-07-02 10:54] VITALS: BP 107/62; PULSE 73; RESP 18; TEMP 36.5; O2SAT 95
== END 2018-07-02 10:55 | disposition home or self-care (01) | DRG 342 ==
LOC: ER 15:29 → SUR 16:48 → MS 07-02 09:04 → ER 07-03 09:06 → MS 07-03 09:09 → SUR 07-03 09:09
PROVIDERS: Admitting Provider Surgery; Emergency Provider Student in an Organized Health Care Education/Training Program; PCP Family Medicine; Visit Provider Surgery
PROC: 0DTJ4ZZ Resection of Appendix, Percutaneous Endoscopic Approach (ICD-10-PCS; CPT 44970; principal; 2018-07-01 15:20)
DX: K35.890 Other acute appendicitis without perforation or gangrene (principal); C77.3 Secondary and unspecified malignant neoplasm of axilla and upper limb lymph nodes; C50.919 Malignant neoplasm of unspecified site of unspecified female breast; D70.1 Agranulocytosis secondary to cancer chemotherapy; T45.1X5A Adverse effect of antineoplastic and immunosuppressive drugs, initial encounter; D69.6 Thrombocytopenia, unspecified; Z45.2 Encounter for adjustment and management of vascular access device; Z79.899 Other long term (current) drug therapy
CPT/HCPCS: 44970; 36415; 36591; 80048; 80053; 83690; 96365; 96375; 96376; 99222; 99285; NC; 74177; 81003; 81015; 83605; 85025; 85730; 88304; J1100; J1335; J1650; J2250; J2270; J2405; J2765; J3490

== ENCOUNTER 2018-07-14 00:36 | Outpatient (RCR) | payer OTHER, SELFPAY ==
[2018-07-07] MEDS: Normal Saline Flush 10 ML SYR IVP (08:51)
[2018-07-07 08:54] LABS: HCT 34.8 % (36.0-46.0); HGB 11.4 g/dL (12.0-15.5); Mean Corp. HGB Concentration 32.8 g/dL (32.0-36.0); Mean Corpuscular Hemoglobin 31.1 pg (27.0-33.0); Mean Corpuscular Volume 94.8 fL (80-95); Mean Platelet Volume 8.9 fL (8.0-11.0); RBC 3.67 m/cumm (4.00-5.20); RBC Distribution Width 12.8 % (11.7-14.6)
[2018-07-07 09:09] LABS: ALT 24 U/L (12-78); AST 18 U/L (15-37); Albumin 3.1 g/dL (3.4-5.0); Alkaline Phosphatase 65 U/L (46-116); Anion Gap 5.2 mmol/L (3-11); BUN 14 mg/dL (7-18); Bilirubin, Total 0.1 mg/dL (0.2-1.0); CO2 30.8 mmol/L (21.0-32.0); CREATININE 0.73 mg/dL (0.55-1.02); Calcium 8.8 mg/dL (8.5-10.1); Chloride 106 mmol/L (98-107); Glucose 114 mg/dL (70-100); Potassium 4.1 mmol/L (3.5-5.1); Sodium 142 mmol/L (136-145); Total Protein 6.7 g/dL (6.4-8.2)
[2018-07-07 09:10] LABS: Absolute Basophil Count 0.05 k/cumm (0.0-0.2); Absolute Lymphocyte Count 1.49 k/cumm (1.2-3.4); Absolute Monocyte Count 0.38 k/cumm (0.11-0.7); Absolute Neutrophil Count 2.74 k/cumm (1.2-6.7); Atypical Lymphocytes % 1; Nucleated RBC 1 /100WBC; Platelet Count 280 x1000/uL (130-400)
[2018-07-07 09:11] LABS: Diff Comment Manual Differential; Polychromasia Present
[2018-07-14] MEDS: Normal Saline Flush 10 ML SYR IVP (08:44)
[2018-07-14 09:07] LABS: Abs Immature Grans 0.03 k/cumm (0.0-0.09); Absolute Basophil Count 0.16 k/cumm (0.0-0.2); Absolute Lymphocyte Count 1.26 k/cumm (1.2-3.4); Basophils % 3.3; HCT 36.7 % (36.0-46.0); HGB 12.1 g/dL (12.0-15.5); Immature Grans % 0.6; Mean Corpuscular Hemoglobin 31.2 pg (27.0-33.0); Mean Corpuscular Volume 94.6 fL (80-95); Mean Platelet Volume 9.5 fL (8.0-11.0); Monocytes % 10.3; Neutrophils % 59.8; Platelet Count 431 x1000/uL (130-400); RBC 3.88 m/cumm (4.00-5.20); RBC Distribution Width 13.7 % (11.7-14.6); White Blood Cell Count 4.85 k/cumm (4.4-10.8)
[2018-07-14 09:21] LABS: ALT 25 U/L (12-78); AST 20 U/L (15-37); Albumin 3.2 g/dL (3.4-5.0); Alkaline Phosphatase 63 U/L (46-116); Anion Gap 8.7 mmol/L (3-11); BUN 21 mg/dL (7-18); Bilirubin, Total 0.2 mg/dL (0.2-1.0); CO2 29.3 mmol/L (21.0-32.0); CREATININE 0.68 mg/dL (0.55-1.02); Calcium 8.6 mg/dL (8.5-10.1); Chloride 105 mmol/L (98-107); Glucose 122 mg/dL (70-100); Sodium 143 mmol/L (136-145); Total Protein 6.9 g/dL (6.4-8.2)
== END 2018-07-21 23:59 | disposition home or self-care (01) ==
LOC: INF 00:36
PROVIDERS: PCP Family Medicine; Visit Provider Internal Medicine Hematology & Oncology
DX: C50.812 Malignant neoplasm of overlapping sites of left female breast (principal); Z17.0 Estrogen receptor positive status [ER+]; Z45.2 Encounter for adjustment and management of vascular access device
CPT/HCPCS: 36591; 80053; 85025

== ENCOUNTER 2018-08-11 02:03 | Outpatient (RCR) | payer OTHER, SELFPAY ==
[2018-07-28] MEDS: Normal Saline Flush 10 ML SYR IVP (10:15)
[2018-07-28 10:30] LABS: HCT 34.5 % (36.0-46.0); HGB 11.4 g/dL (12.0-15.5); Mean Corpuscular Hemoglobin 31.1 pg (27.0-33.0); Mean Corpuscular Volume 94.3 fL (80-95); Mean Platelet Volume 9.7 fL (8.0-11.0); RBC 3.66 m/cumm (4.00-5.20); RBC Distribution Width 13.5 % (11.7-14.6); White Blood Cell Count 5.76 k/cumm (4.4-10.8)
[2018-07-28 10:42] LABS: ALT 29 U/L (12-78); AST 25 U/L (15-37); Albumin 3.4 g/dL (3.4-5.0); Alkaline Phosphatase 78 U/L (46-116); Anion Gap 5.2 mmol/L (3-11); BUN 12 mg/dL (7-18); Bilirubin, Total 0.2 mg/dL (0.2-1.0); CO2 30.8 mmol/L (21.0-32.0); CREATININE 0.66 mg/dL (0.55-1.02); Calcium 9.1 mg/dL (8.5-10.1); Chloride 105 mmol/L (98-107); Glucose 109 mg/dL (70-100); Potassium 4.2 mmol/L (3.5-5.1); Sodium 141 mmol/L (136-145)
[2018-07-28 10:56] LABS: Absolute Neutrophil Count 3.34 k/cumm (1.2-6.7); Platelet Count 151 x1000/uL (130-400)
[2018-07-28 10:57] LABS: Absolute Basophil Count 0.06 k/cumm (0.0-0.2); Absolute Eosinophil Count 0.06 k/cumm (0.0-0.7); Absolute Lymphocyte Count 1.27 k/cumm (1.2-3.4); Absolute Monocyte Count 0.75 k/cumm (0.11-0.7); Diff Comment Manual Differential; Polychromasia Present
[2018-08-11] MEDS: Normal Saline Flush 10 ML SYR IVP (12:00)
[2018-08-11 12:23] LABS: Abs Immature Grans 0.17 k/cumm (0.0-0.09); HCT 32.2 % (36.0-46.0); HGB 10.7 g/dL (12.0-15.5); Mean Corp. HGB Concentration 33.2 g/dL (32.0-36.0); Mean Corpuscular Hemoglobin 31.5 pg (27.0-33.0); Mean Corpuscular Volume 94.7 fL (80-95); Mean Platelet Volume 9.3 fL (8.0-11.0); Platelet Count 185 x1000/uL (130-400); RBC Distribution Width 14.4 % (11.7-14.6); White Blood Cell Count 5.31 k/cumm (4.4-10.8)
[2018-08-11 12:32] LABS: ALT 39 U/L (12-78); AST 27 U/L (15-37); Albumin 3.5 g/dL (3.4-5.0); Alkaline Phosphatase 86 U/L (46-116); Anion Gap 7.3 mmol/L (3-11); BUN 10 mg/dL (7-18); Bilirubin, Total 0.2 mg/dL (0.2-1.0); CO2 29.7 mmol/L (21.0-32.0); CREATININE 0.69 mg/dL (0.55-1.02); Calcium 8.9 mg/dL (8.5-10.1); Chloride 104 mmol/L (98-107); Glucose 112 mg/dL (70-100); Sodium 141 mmol/L (136-145); Total Protein 6.8 g/dL (6.4-8.2)
[2018-08-11 12:42] LABS: Absolute Lymphocyte Count 0.74 k/cumm (1.2-3.4); Absolute Neutrophil Count 3.66 k/cumm (1.2-6.7); Atypical Lymphocytes % 1
[2018-08-11 12:43] LABS: Absolute Basophil Count 0.11 k/cumm (0.0-0.2); Absolute Monocyte Count 0.58 k/cumm (0.11-0.7); Diff Comment Manual Differential; Nucleated RBC 1 /100WBC; Polychromasia Present
== END 2018-08-21 23:59 | disposition home or self-care (01) ==
LOC: INF 02:03
PROVIDERS: PCP Family Medicine; Visit Provider Internal Medicine Hematology & Oncology
DX: C50.812 Malignant neoplasm of overlapping sites of left female breast (principal); Z17.0 Estrogen receptor positive status [ER+]; Z45.2 Encounter for adjustment and management of vascular access device
CPT/HCPCS: 36591; 80053; 85025

== ENCOUNTER 2018-08-19 03:25 | Inpatient (IN) | payer OTHER, SELFPAY ==
[2018-08-19] VITALS (27 sets, daily range): BP systolic 87–120; BP diastolic 41–92; PULSE 71–116; RESP 12–29; TEMP 36.4–37.9; O2SAT 94–98
--- NOTE | 2018-08-19 04:10 | DI.CT_ITS ---
SYMPTOMS/DIAGNOSIS: CANCER PATIENT WITH SYNCOPE, SHORTNESS OF BREATH, STRUCK HEAD ABOVE RIGHT EYE DURING FALL CT SCAN OF THE CHEST: CT angiography was performed with multi slice acquisition and multi planar and 3D reconstruction. CT scan of the chest was performed according to the pulmonary embolus protocol. There is no evidence of a pulmonary embolus. The thoracic aorta is intact. No evidence of dissection or aneurysm. The heart size is within normal limits. No significant pericardial effusion is seen. No evidence of right ventricular dysfunction is present. No significant thoracic adenopathy, pleural effusion or pneumothorax is identified. There is patient motion artifact present. No pulmonary infiltrates are seen. The tracheobronchial tree is unremarkable. There does appear to be apparent thickening of the wall of the esophagus involving the distal half. This may be due to underdistention but an inflammatory or infectious process cannot be excluded. There is a stone seen within the gallbladder. No biliary ductal dilatation is present. Degenerative changes are seen in the spine. IMPRESSION: 1. No evidence of a pulmonary embolus, thoracic aortic dissection or aneurysm. 2. Apparent thickening of the wall of the distal esophagus. This may be due to incomplete distention, but an inflammatory or infectious esophagitis cannot be excluded. 3. Cholelithiasis. No biliary ductal dilatation. CT HEAD: Noncontrast examination was performed. There are no priors for comparison. There is patient motion artifact, which limits evaluation. The artifact mainly involves the inferior aspect of the middle and posterior cranial fossa. There is normal jimenez-white matter differentiation. No acute intracranial hemorrhage, infarct, midline shift or mass effect is identified. The ventricles are intact. There is no evidence of a skull fracture. The visualized paranasal sinuses are clear. The mastoid air cells are well pneumatized. IMPRESSION: No acute intracranial process.
--- NOTE | 2018-08-19 04:13 | W.ED.GENAD ---
Discharge Plan Disposition Patient Disposition: [facility] INPATIENT Condition: Fair Discharge Details Chief Complaint: HeadInjury Clinical Impression: Dehydration, Thrombocytopenia, Orthostatic syncope, Neutropenia Primary Care Provider: Brenda Greene ED Provider: Eldon Fisher [place] Meds and New Rx's Prescriptions: No Action acetaminophen [Tylenol] 325 mg tablet 650 mg PO Q6H PRNRF: 0 calcium carbonate [Tums] 300 mg (750 mg) tablet,chewable 300 mg PO QID PRNRF: 0 ibuprofen 200 mg tablet 200 mg PO QID PRNRF: 0 prochlorperazine maleate [Compazine] 10 mg tablet 10 mg PO TID PRNRF: 0 loratadine [Claritin] 10 mg tablet 10 mg PO DAILY PRNRF: 0 ondansetron HCl [Zofran] 4 mg Tablet 4 mg PO PRNRF: 0 lorazepam [Ativan] 0.5 mg Tablet 0.5 mg PO QHS PRNRF: 0 Medical Decision Making Patient presenting with head injury status post syncopal event at home. She was noted to be mildly hypotensive at triage. She did ambulate in okay. She has had vomiting with decreased p.o. intake so this may all be related to dehydration. However, she has some complaints of right-sided chest discomfort with occasional shortness of breath and a persistent cough. She has no calf tenderness but she does note she has had some calf pain. Should consider PE as a cause of syncope though seems low likelihood. Doubt that this has any true cardiac etiology unless the chemo regimen has caused a cardiomyopathy. She will need a head CT given the syncope and fall with obvious head injury. Spine is cleared clinically. We will accessed the port and obtain CTA of the chest for PE. Check laboratory studies. She is found to be orthostatic so we will give at least a liter of fluid if not more. Obtain EKG. Reevaluate once studies are back. 06:30 -patient has had episodic nausea. She was given Phenergan IV. She is continued on fluids. Laboratory studies obtained show a white count of 0.26 with an absolute neutrophil count 0.03. Platelets also low at 56. Hemoglobin is 10. Chemistries unremarkable other than a magnesium of 1.6. This will be replaced. Troponin is negative. Urine is negative. Head CT without bleed or fracture. Chest CT without PE, pneumonia. Patient is placed in neutropenic precautions. Call placed to [facility] to speak to Heme-Onc. 08:00 -spoke to Dr. Duran at [facility]. As patient is afebrile with no evidence of infection, she does not need prophylactic antibiotic. He wanted to check with patient's primary oncologist regarding growth factor to try to bring her counts up. Patient likely to benefit from observation admission for continue fluid hydration given her orthostasis. Also need to continue to replace magnesium. Dr. Duran returned call stating that he had spoke to the patient's primary oncologist and she received Neulasta and does not need further growth factor. Case discussed with hospitalist, Dr. Epstein. Patient will be kept on neutropenic precautions in place in observation admission for fluids and repeat labs. Lab Data Lab results reviewed: Yes I reviewed the patient's lab results. ECG Data Attestation: I personally reviewed and interpreted this ECG (s) as follows: Prior ECG tracings: not available for review HPI General Mode of arrival: ambulatory. Date/Time Provider Initiated Documentation: 08/19/18 03:48. Limitations to Documentation: no limitations. Information obtained by: patient and old records reviewed. HPI Narrative: Patient presents to ED after syncopal event at home. Patient is being treated for breast cancer and is actively receiving chemotherapy. She has had a cough for at least 1-2 weeks. She occasionally has discomfort in her right chest but cannot describe it well. States it feels like a gas bubble. She does not really feel short of breath. She has had nausea and vomiting. She has had decreased appetite and is not taking a lot of p.o. She denies abdominal pain or back pain. She denies fever. She denies other URI type symptoms. Tonight she got up from the couch because she did not feel well. When she got to the bathroom she felt like she needed to vomit but could not. She was lightheaded and diaphoretic. She put a cold cloth on. She thought she was feeling a little better and went to leave the bathroom. The next thing she knows she was on the floor. She sustained pretty good hematoma above the right eye. She did not have any chest pain. She did have some posterior neck pain which has since resolved. She has some pain with the hematoma is but no headache. She is brought in by her for further evaluation. Related Data Home Medications Medication Instructions Recorded Confirmed acetaminophen 325 mg tablet 650 mg PO Q6H PRN 06/16/18 08/19/18 calcium carbonate 300 mg (750 mg) 300 mg PO QID PRN tab 06/16/18 08/19/18 chewable tablet ibuprofen 200 mg tablet 200 mg PO QID PRN 06/16/18 08/19/18 prochlorperazine maleate 10 mg 10 mg PO TID PRN 06/16/18 08/19/18 tablet loratadine 10 mg tablet 10 mg PO DAILY PRN 07/15/18 08/19/18 lorazepam [Ativan] 0.5 mg PO QHS PRN 08/19/18 08/19/18 ondansetron HCl [Zofran] 4 mg PO PRN 08/19/18 08/19/18 Allergies Allergy/AdvReac Type Severity Reaction Status Date / Time No Known Allergies Allergy Verified 08/19/18 03:38 General Stated Complaint: HeadInjury SATISH: 3 Review of Systems Review of Systems 03/06 Review of Systems completed and is negative except as stated above in HPI (Systems reviewed: Const, Eyes, ENT, Resp, CV, GI, , MSK, Skin, Neuro) [facility] Medical History Breast cancer (Chronic) Port-A-Cath in place (Chronic) Surgical History S/P laparoscopic appendectomy (Inactive ~07/01/18) History of rotator cuff surgery (Inactive) H/O: section (Inactive ~1984) History of lumpectomy of left breast (Inactive ~2017) Social History Smoking/Tobacco Use Status: Former Tobacco Use Quit Date: 05/24/84 Second Hand Exposure: Yes Alcohol Intake: current Alcohol Intake frequency: holidays/special occasions only Alcohol type: beer and hard liquor Drug use: Never Substance use type: does not use Duration: decline to answer Frequency: decline to answer Sheridan/Catholic: Protestant Special sheridan needs: No Seatbelt use: always Helmet use: Yes Do you feel safe in your relationship?: Yes Exam Narrative Exam Narrative: 1. Const: WDWN female in NAD. 2. Eyes: PERRL, EOMI. No conjunctival injection or scleral icterus. 3. ENT: NC; large hematoma over the right eye. Mucous membranes moist. 4. Neck: Supple without adenopathy. Trachea midline. 5. CVS: +S1/S2, No murmurs or gallops. Strong radial pulses. 6. RESP: Unlabored respiratory effort. Clear to auscultation bilaterally. No wheezes rales or rhonchi 7. GI: Soft, NT/ND, No hepatosplenomegaly. No guarding or rebound. 8. MSK: No C/C/E present. No deformity or tenderness noted. No calf tenderness. No spine tenderness. 9. Skin: Warm, Dry. No rashes. No lacerations/abrasions. 10. Neuro: A&O x3. vice president mission integration II-XII grossly intact. Sensation grossly intact, no focal neurologic deficits. 11. Psych: Appropriate mood and affect Course Vital Signs Temperature 97.7 F 08/19/18 03:33 Pulse 107 H 08/19/18 03:33 Respiratory Rate 16 08/19/18 03:33 Blood Pressure 94/54 L 08/19/18 03:33 Pulse Oximetry 96 08/19/18 03:33 Temperature 97.7 F 08/19/18 03:33 Temperature Source Skin 08/19/18 03:33 Pulse 103 H 08/19/18 03:43 Respiratory Rate 16 08/19/18 03:33 Respiratory Effort Non-Labored 08/19/18 03:36 Blood Pressure 102/61 08/19/18 03:43 Pulse Oximetry 96 08/19/18 03:33 Pain Level 5 08/19/18 03:33
[2018-08-19 05:15] LABS: Absolute Monocyte Count 0.02 k/cumm (0.11-0.7); HCT 28.9 % (36.0-46.0); HGB 9.7 g/dL (12.0-15.5); Mean Corp. HGB Concentration 33.6 g/dL (32.0-36.0); Mean Corpuscular Hemoglobin 31.1 pg (27.0-33.0); Mean Corpuscular Volume 92.6 fL (80-95); Mean Platelet Volume 9.4 fL (8.0-11.0); Platelet Count 56 x1000/uL (130-400); RBC 3.12 m/cumm (4.00-5.20); RBC Distribution Width 14.1 % (11.7-14.6)
[2018-08-19] MEDS: Normal Saline 1,000 ML 1000 ML IV ×2 (05:19→14:05)
[2018-08-19 05:22] LABS: ALT 32 U/L (12-78); AST 26 U/L (15-37); Alkaline Phosphatase 86 U/L (46-116); BUN 17 mg/dL (7-18); Bilirubin, Total 0.6 mg/dL (0.2-1.0); CREATININE 0.63 mg/dL (0.55-1.02); Calcium 8.3 mg/dL (8.5-10.1); Chloride 103 mmol/L (98-107); Glucose 144 mg/dL (70-100); Magnesium 1.6 mg/dL (1.8-2.4); Potassium 3.9 mmol/L (3.5-5.1); Sodium 139 mmol/L (136-145); Total Protein 6.3 g/dL (6.4-8.2)
[2018-08-19 05:30] LABS: White Blood Cell Count 0.26 k/cumm (4.4-10.8)
[2018-08-19 05:37] LABS: Troponin I 0.02 ng/mL (0.00-0.06)
[2018-08-19 05:41] LABS: Absolute Basophil Count 0.03 k/cumm (0.0-0.2); Absolute Lymphocyte Count 0.18 k/cumm (1.2-3.4); Atypical Lymphocytes % 0
[2018-08-19 05:42] LABS: Absolute Neutrophil Count 0.03 k/cumm (1.2-6.7); Diff Comment Manual Differential
[2018-08-19 05:43] LABS: RBC Morphology Normal
[2018-08-19 06:08] LABS: Bilirubin Small (Negative); Blood Trace-lysed (Negative); Clarity Clear; Glucose Negative (Negative); Ketones Negative (Negative); Leukocyte Esterase Negative (Negative); Nitrite Negative (Negative); Specific Gravity >= 1.030 (1.005-1.025); pH 5.5 (5-8)
[2018-08-19] MEDS: Omnipaque 350 MG/ML 100 ML BTL IJ (06:11)
[2018-08-19 06:16] LABS: Bacteria Few HPF (Negative); Crystals Negative HPF (Negative); Epithelial Cells Many HPF (Negative); Mucus Negative (Negative); RBC 0-2 (0-2); WBC 0-2 HPF (0-5)
[2018-08-19 06:17] LABS: C & S Indicated? No/Sq. Contamination; Casts 0-2 Fine Granular LPF (Negative)
--- NOTE | 2018-08-19 06:22 | DI.VRAD_ITS ---
Addendum created by Stone Carcamo MD on 08/19/2018 6:23:50 AM EDT ADDENDUM: Mural thickening suspected of the incompletely distended esophagus, recommend clinical exclusion of esophagitis. Initial report created on 08/19/2018 6:22:12 AM EDT EXAM: CT Angiography Chest With Contrast EXAM DATE/TIME: 08/19/2018 4:14 AM CLINICAL HISTORY: 58 years old, female; Signs and symptoms; Shortness of breath; Prior surgery; Surgery type: Port placement TECHNIQUE: Imaging protocol: Axial computed tomographic angiography images of the chest with intravenous contrast using CT angiography protocol. Coronal and sagittal reformatted images were created and reviewed. 3D rendering: MIP reconstructed images were created and reviewed. Radiation optimization: All CT scans at this facility use at least one of these dose optimization techniques: automated exposure control; mA and/or kV adjustment per patient size (includes targeted exams where dose is matched to clinical indication); or iterative reconstruction. Contrast material: [id number] Contrast volume: 80 ml Contrast route: port COMPARISON: No relevant prior studies available. FINDINGS: Pulmonary arteries: Normal. No pulmonary emboli. Aorta: Normal. No aortic aneurysm. No aortic dissection. Lungs: Normal. No consolidation. No masses. Pleural space: Normal. No pneumothorax. No pleural effusion. Heart: Normal. No cardiomegaly. No pericardial effusion. Lymph nodes: Unremarkable. No enlarged lymph nodes. Bones/joints: Unremarkable. No acute fracture. Soft tissues: Unremarkable. IMPRESSION: No acute findings. Dictated and Authenticated by: Stone Carcamo MD. Ordering:ELIE Colón MD
--- NOTE | 2018-08-19 06:22 | DI.VRAD_ITS ---
EXAM: CT Head Without Contrast EXAM DATE/TIME: 08/19/2018 4:14 AM CLINICAL HISTORY: 58 years old, female; Injury or trauma; Fall; Initial encounter; Blunt trauma (contusions or hematomas); With loss of consciousness; Not specified; Injury date: 08/19/2018; Injury details: Fell forward, hit head above right eye TECHNIQUE: Imaging protocol: Axial computed tomography images of the head/brain without contrast. Coronal and sagittal reformatted images were created and reviewed. Radiation optimization: All CT scans at this facility use at least one of these dose optimization techniques: automated exposure control; mA and/or kV adjustment per patient size (includes targeted exams where dose is matched to clinical indication); or iterative reconstruction. COMPARISON: No relevant prior studies available. FINDINGS: Brain: Normal. No hemorrhage. No significant white matter disease. No edema. Ventricles: Normal. No ventriculomegaly. Bones/joints: Unremarkable. No acute fracture. Sinuses: Visualized sinuses are unremarkable. No acute sinusitis. Mastoid air cells: Visualized mastoid air cells are unremarkable. No mastoid effusion. Soft tissues: Unremarkable. IMPRESSION: No acute intracranial abnormality. Dictated and Authenticated by: Stone Carcamo MD. Ordering:ELIE Colón MD
[2018-08-19] MEDS: MAGNESIUM SULFATE 2 GM/50 ML BAG IVPB (06:33)
[2018-08-19] MEDS: diphenhydrAMINE 50 MG/ML VIAL 25 MG IVP (08:15)
[2018-08-19] MEDS: Normal Saline 1,000 ML 125 ML IV ×3 (09:21→22:19)
[2018-08-19] MEDS: Normal Saline Flush 10 ML SYR IVP ×2 (09:22→19:32)
[2018-08-19] MEDS: Pantoprazole 40 MG VIAL IVP ×2 (09:22→19:31)
[2018-08-19] MEDS: Dexamethasone 4 MG/ML VIAL IVP (10:01)
[2018-08-19] MEDS: Acetaminophen 325 MG TAB PO (10:01)
--- NOTE | 2018-08-19 15:39 | CHAPLAIN ---
I visited with Nakul and her . They moved here from [place] in May because their son Herman and his , Chioma moved here to be closer to Chioma's family. 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 She is grateful for being close to her son and grandson and feels supported by Chioma's family as well. She is Latter Day and Fr. Chahal visited with her this afternoon.
--- NOTE | 2018-08-19 18:09 | W.PM.HP.N ---
Date of service: 08/19/18 Time of Service: 13:40 Assessment and Plan (1) Vasovagal syncope: Current visit: Yes Status: Acute in setting of nausea and dehydration/orthostatic hypotension, this is not surprising. Hydrate IV, control nausea, recheck orthostatics in am. (2) Orthostatic hypotension: Current visit: Yes Status: Acute Hydrate aggressively (3) Drug-induced leukopenia: Current visit: No Status: Acute Due to chemo - expected to improve post neulasta as outpatient. Recheck in am (4) Thrombocytopenia: Current visit: No Status: Chronic Chemotherapy induced. Recheck in am. Expected to improve (5) Breast cancer metastasized to axillary lymph node: Current visit: No Status: Acute on AC chemotherapy. Patient is to follow up with [facility] oncology (6) Closed head injury: Current visit: Yes Status: Acute Does not appear to have signs of concussion. Will monitor overnight (7) Traumatic hematoma of forehead: Current visit: Yes Status: Acute Avoid NSAIDs/chemical DVT PPx. Monitor (8) Dehydration: Current visit: Yes Status: Acute IVF (9) Intractable nausea and vomiting: Current visit: Yes Status: Acute Likely due to chemo and reflux. Received one dose of decadron this am as well as a dose of protonix - and already seems better. Will continue protonix, add carafate. (10) Reflux esophagitis: Current visit: Yes Status: Acute Likely exacerbated by chemical esophagitis due to chemo in addition to frequent vomiting. I started BID PPI. Will add carafate. Patients nausea seems to already get better. This also likely explains at least partially her cough. (11) DVT prophylaxis: Current visit: Yes Status: Acute SCDs + TEDs Avoid chemical DVT ppx due to the hematoma (12) Discharge planning issues: Current visit: Yes Status: Acute Likely discharge home tomorrow History of Present Illness Chief Complaint: syncopal episode, nausea/vomiting, cough Narrative: Ms oJseph is a 58 year old female with PMHx of Breast can metastatic to lymph nodes, s/p lumpectomy, s/p 4th cycle of AC, who presented to [facility] ED today after a syncopal episode. The patient has been having a lot of nausea/vomiting post chemo. She states that she has also had a lot of cough productive of clear sputum, which is incessant and leads to vomiting sometimes. This morning, she got up from the bed because she was nauseated and thought she might vomit. She felt clammy and dizzy. She went to the bathroom, put a wet towel on her head, felt better and was on her way back to the bedroom when she felt a sudden pain in her posterior neck. The next thing she remembers is waking up on the ground, where she had fallen face forward, hitting the right frontal side of her head. She thinks she was only unconscious for a few moments. She does not recall feeling any chest pain or palpitations. In the ED, she was found to have orthostatic hypotension, with standing BP of 87/57. She was aggressively hydrated with improvement of BP's. Additionally, she was found to be neutropenic with ANC of 30 and thrombocytopenic with plt count of 56. ED physician Dr Fisher did contact [facility] oncology, who informed us that the patient already got neulasta and that her WBC is expected to improve by tomorrow. She did not have a fever or evidence of pneumonia on CT of her chest. No antibiotics were indicated. She did appear to have some esophagitis and reports symptoms of reflux. The patient was given phenergan in the ED, after which she developed uncontrollable movements in her LUE/LLE. These resolved with IV benadryl. We were asked to admit the patient for overnight observation, IV hydration, antiemetics, and monitoring of her CBC. Review of Systems Review of Systems 12 systems reviewed. Pertinent positives and negatives are as per HPI. [facility] Medical History Breast cancer (Chronic) Port-A-Cath in place (Chronic) Surgical History S/P laparoscopic appendectomy (Inactive ~07/01/18) History of rotator cuff surgery (Inactive) H/O: section (Inactive ~1984) History of lumpectomy of left breast (Inactive ~2017) Social History Smoking/Tobacco Use Status: Former Tobacco Use Quit Date: 05/24/84 Second Hand Exposure: Yes Alcohol Intake: current Alcohol Intake frequency: holidays/special occasions only Alcohol type: beer and hard liquor Drug use: Never Substance use type: does not use Duration: decline to answer Frequency: decline to answer Sheridan/Muslim: Restorationist Special sheridan needs: No Seatbelt use: always Helmet use: Yes Do you feel safe in your relationship?: Yes Meds Home Medications Medication Instructions Recorded Confirmed Type acetaminophen 325 mg tablet 650 mg PO Q6H PRN 06/16/18 08/19/18 History calcium carbonate 300 mg (750 mg) 300 mg PO QID PRN tab 06/16/18 08/19/18 History chewable tablet ibuprofen 200 mg tablet 200 mg PO QID PRN 06/16/18 08/19/18 History prochlorperazine maleate 10 mg 10 mg PO TID PRN 06/16/18 08/19/18 History tablet loratadine 10 mg tablet 10 mg PO DAILY PRN 07/15/18 08/19/18 History lorazepam [Ativan] 0.5 mg PO QHS PRN 08/19/18 08/19/18 History ondansetron HCl [Zofran] 4 mg PO Q6H PRN PRN 08/19/18 08/19/18 History Allergies Allergy/AdvReac Type Severity Reaction Status Date / Time promethazine [From Phenergan] AdvReac Intermediate akathisias Verified 08/19/18 18:26 Exam Narrative Exam Narrative: General: Very pleasant middle aged female, appears tired/pale, sitting comfortably in bed Neurological: A&Ox3, no focal deficits Psychiatric: mildly anxious Skin: rash on bilateral wrists (macular, no vesciles) HEENT: R forehead hematoma; EOMI, dry MM, no submandibular or cervical lymphadenopathy, no goiter or JVD Cardiovascular: RRR, no m/r/g Lungs: CTAB Gastrointestinal: abdomen is soft, nontender, nondistended Extremities: no e/c/c BLE's, 2+ pedal pulses B Results Imaging Additional studies: CT head: No acute intracranial process. CT chest: 1. No evidence of a pulmonary embolus, thoracic aortic dissection or aneurysm. 2. Apparent thickening of the wall of the distal esophagus. This may be due to incomplete distention, but an inflammatory or infectious esophagitis cannot be excluded. 3. Cholelithiasis. No biliary ductal dilatation. EKG: SR, HR 82, nonspecific ST abnormality Labs : 08/19/18 04:54 08/19/18 04:54 Laboratory Results - last 24 hr 08/19/18 08/19/18 08/19/18 04:41 04:54 04:54 WBC 0.26 L* RBC 3.12 L Hgb 9.7 L Hct 28.9 L MCV 92.6 MCH 31.1 MCHC 33.6 RDW 14.1 Plt Count 56 L D MPV 9.4 Immature Gran % 0.0 Neutrophils % 12.0 Band Neutrophils % 0.0 Lymphocytes % 70.0 Atypical Lymphs % 0 Monocytes % 6.0 Eosinophils % 0.0 Basophils % 12.0 Absolute Neutrophils 0.03 L* Absolute Lymphocytes 0.18 L Absolute Monocytes 0.02 L Absolute Eosinophils 0.00 Absolute Basophils 0.03 Differential Comment Manual differential RBC Morphology Normal Sodium 139 Potassium 3.9 Chloride 103 Carbon Dioxide 27.0 Anion Gap 9.0 BUN 17 Creatinine 0.63 Estimated GFR/1.73 m2 >= 60.00 Glucose 144 H Calcium 8.3 L Magnesium 1.6 L Total Bilirubin 0.6 AST 26 ALT 32 Alkaline Phosphatase 86 Troponin I 0.02 Total Protein 6.3 L Albumin 3.0 L Urine Color Urine Clarity Urine pH Ur Specific [place] Urine Protein Urine Ketones Urine Blood Urine Nitrite Urine Bilirubin Urine Urobilinogen Ur Leukocyte Esterase Urine RBC Urine WBC Ur Epithelial Cells Urine Crystals Urine Bacteria Urine Casts Urine Mucus Ur Culture Indicated? Urine Glucose 08/19/18 05:35 WBC RBC Hgb Hct MCV MCH MCHC RDW Plt Count MPV Immature Gran % Neutrophils % Band Neutrophils % Lymphocytes % Atypical Lymphs % Monocytes % Eosinophils % Basophils % Absolute Neutrophils Absolute Lymphocytes Absolute Monocytes Absolute Eosinophils Absolute Basophils Differential Comment RBC Morphology Sodium Potassium Chloride Carbon Dioxide Anion Gap BUN Creatinine Estimated GFR/1.73 m2 Glucose Calcium Magnesium Total Bilirubin AST ALT Alkaline Phosphatase Troponin I Total Protein Albumin Urine Color Yellow Urine Clarity Clear Urine pH 5.5 Ur Specific [place] >= 1.030 H Urine Protein 30 H Urine Ketones Negative Urine Blood Trace-lysed H Urine Nitrite Negative Urine Bilirubin Small H Urine Urobilinogen 1.0 H Ur Leukocyte Esterase Negative Urine RBC 0-2 Urine WBC 0-2 Ur Epithelial Cells Many Urine Crystals Negative Urine Bacteria Few Urine Casts 0-2 fine granular Urine Mucus Negative Ur Culture Indicated? No/sq. contamination Urine Glucose Negative Last Vital Signs Temp 36.7 C 08/19/18 14:55 Pulse 71 08/19/18 14:55 Resp 18 08/19/18 14:55 BP 110/61 08/19/18 14:55 Pulse Ox 98 08/19/18 14:55
[2018-08-20] MEDS: Acetaminophen 325 MG TAB PO ×5 (00:04→22:03)
[2018-08-20] MEDS: guaiFENesin 200 MG/10 ML CUP 100 MG PO ×5 (00:05→22:02)
[2018-08-20 01:56] VITALS: TEMP 37.2
[2018-08-20 04:30] VITALS: BP 108/68; PULSE 80; RESP 16; TEMP 36.9; O2SAT 96
[2018-08-20] MEDS: Normal Saline 1,000 ML 125 ML IV ×3 (04:39→17:16)
[2018-08-20 07:33] LABS: Anion Gap 7.6 mmol/L (3-11); BUN 8 mg/dL (7-18); CO2 25.4 mmol/L (21.0-32.0); CREATININE 0.57 mg/dL (0.55-1.02); Calcium 7.3 mg/dL (8.5-10.1); Chloride 109 mmol/L (98-107); Glucose 86 mg/dL (70-100); Magnesium 1.7 mg/dL (1.8-2.4); Potassium 3.3 mmol/L (3.5-5.1); Sodium 142 mmol/L (136-145)
[2018-08-20 07:34] LABS: Absolute Basophil Count 0.06 k/cumm (0.0-0.2); Absolute Eosinophil Count 0.01 k/cumm (0.0-0.7); HCT 21.3 % (36.0-46.0); HGB 7.2 g/dL (12.0-15.5); Mean Corp. HGB Concentration 33.8 g/dL (32.0-36.0); Mean Corpuscular Hemoglobin 31.7 pg (27.0-33.0); Mean Corpuscular Volume 93.8 fL (80-95); Mean Platelet Volume 10.4 fL (8.0-11.0); RBC 2.27 m/cumm (4.00-5.20); RBC Distribution Width 14.3 % (11.7-14.6)
[2018-08-20] MEDS: Normal Saline Flush 10 ML SYR IVP ×2 (07:59→19:51)
[2018-08-20] MEDS: Sucralfate 1 GM TAB PO ×4 (07:59→22:05)
[2018-08-20] MEDS: Pantoprazole 40 MG VIAL IVP ×2 (07:59→19:51)
[2018-08-20 08:05] VITALS: BP 104/63; BP 91/59; BP 96/51; PULSE 75; PULSE 78; RESP 19; TEMP 35.6; O2SAT 96
[2018-08-20 08:12] LABS: Platelet Count 33 x1000/uL (130-400); White Blood Cell Count 0.54 k/cumm (4.4-10.8)
[2018-08-20 08:14] LABS: Absolute Monocyte Count 0.02 k/cumm (0.11-0.7); Absolute Neutrophil Count 0.04 k/cumm (1.2-6.7)
[2018-08-20 08:16] LABS: Diff Comment Manual Differential
--- NOTE | 2018-08-20 08:21 | PHARADMIT ---
Admission Pharmacy Clinical Review VASOVAGAL SYNCOPE, DEHYDRATION Code Status Full Code Current Weight Wgt-83 kg Renally Cleared and Narrow Therapeutic Index Meds CrCl~ 71.75 mL/min Meds-OK QTc Value / Action Taken qtC-434 NA BP Control, Fever BP- 108/68 Tmax- 37.9C Electrolytes reviewed Na- 142 K+3.3 Mag-1.7 DVT Prophylaxis na Opiate Usage / Scheduled Bowel Regimen Ordered Yes Yes Plt/SCr for Heparin / Enoxaparin Plts- 33 SCr-0.57 INR for Warfarin H/H stable, WBC/Bands H&H- 7.2/21.3 WBC- 0.54 ANC-0.04 Antibiotic appropriateness NONE Cultures and Sensitivities none Surgical ABX d/c within 24 hr na DM control / Insulin Dosing BG- 86 Heart Failure (Check EF%) (JENY's, B-Block, Diuretics) IV to PO Switch No Home Meds Reviewed Yes Home Meds Not Ordered Loratidine, Com{azine,Zofran, Ibuprofen Comments
--- NOTE | 2018-08-20 09:59 | PDOC.CMIN ---
- If Service Date Differs Date of service: 08/20/18 Time of Service: 09:59 Care Management Initial Assess REASON FOR HOSPITALIZATION:: Vasovagal syncope PAST MEDICAL HISTORY/PAST SURGICAL HISTORY:: Breast cancer (Chronic). Port-A-Cath in place (Chronic). S/P laparoscopic appendectomy (Inactive ~07/01/18). History of rotator cuff surgery (Inactive). H/O: section (Inactive ~1984). History of lumpectomy of left breast (Inactive ~2017) PREVIOUS FUNCTIONAL STATUS/SOCIAL/FAMILY SUPPORTS:: Nakul resides with her [place] in [place]. She has a son, DIL, and grandson whom reside locally and reports that her family is supportive. At baseline Nakul is independent, drives, and manages ADL's CURRENT FUNCTIONAL STATUS:: Currently Nakul is lying in bed, her door has been shut for the majority of the day. She is on reverse precautions for neutropenia. ADVANCE DIRECTIVES:: None on file Has patient been provided with information about the portal?: Yes Did the patient sign up for the portal?: No CODE STATUS:: Full Code INSURANCE COVERAGE / FINANCIAL ISSUES:: [employer] CURRENT HOME/COMMUNITY SERVICES/EQUIPMENT:: Currently Nakul has no services or medical equipment in the community. PRIMARY CARE PHYSICIAN:: Brenda Greene POTENTIAL DISCHARGE NEEDS:: F/U appointment with PCP PATIENT/FAMILY EDUCATION NEEDS:: Review DC instructions, any limitations, and ongoing DC planning discussion. Discuss 'Ask Me Three' ANTICIPATED BARRIERS TO DISCHARGE:: None identified at this time. TRANSPORTATION:: Via private vehicle with family PLAN:: Return home with no anticipated services. Nakul will F/U with PCP and plan of care as prescribed. Family to transport when ready.
[2018-08-20] MEDS: Magnesium Oxide 400 MG TAB PO (11:32)
[2018-08-20] MEDS: Potassium Chloride 20 MEQ TABCR 40 MEQ PO (11:32)
[2018-08-20 11:34] VITALS: BP 92/49; PULSE 74; RESP 17; TEMP 36.9; O2SAT 97
--- NOTE | 2018-08-20 12:00 | DI.RAD_ITS ---
SYMPTOM/DIAGNOSIS: NEUTROPENIA, ELEVATED TEMP PA AND LATERAL CHEST: The heart is not enlarged. There is a right subclavian indwelling catheter, the tip of which lies in the superior vena cava. Lungs are generally clear except for some questionable minimal radiodensities in right lower lung field, please correlate clinically regarding the possibility of acute pneumonia.
--- NOTE | 2018-08-20 12:28 | DI.VRAD_ITS ---
EXAM: XR Chest, 2 Views EXAM DATE/TIME: 08/20/2018 10:55 AM CLINICAL HISTORY: 58 years old, female; Signs and symptoms; Other: Neutropenia, elevated temp TECHNIQUE: Imaging protocol: XR of the chest, 2 views. COMPARISON: CT CHEST PE CTA 08/19/2018 5:51 AM FINDINGS: Lungs: Mild opacities in the right lower lobe may represent mild atelectasis or pneumonia. Pleural space: Unremarkable. No pleural effusion. No pneumothorax. Heart/Mediastinum: Unremarkable. No cardiomegaly. Vasculature: MediPort terminates in the superior vena cava Bones/joints: Unremarkable. IMPRESSION: Mild opacities in the right lower lobe may represent mild atelectasis or pneumonia. Dictated and Authenticated by: Amie Gomez MD. Ordering:ALLYSSA Aj MD
[2018-08-20 13:36] LABS: Bilirubin Negative (Negative); Blood Negative (Negative); Clarity Clear; Glucose Negative (Negative); Ketones Negative (Negative); Leukocyte Esterase Negative (Negative); Nitrite Negative (Negative); pH 5.5 (5-8)
[2018-08-20 15:25] VITALS: BP 109/70; PULSE 86; RESP 17; TEMP 36.7; O2SAT 100
[2018-08-20] MEDS: CEFEPIME 2 GM in Normal Saline 100 ML IVPB (17:14)
[2018-08-20] MEDS: Normal Saline 100 ML 200 ML (17:18)
--- NOTE | 2018-08-20 18:27 | W.PM.PROGNOT ---
Date of Service Date of service: 08/20/18 Time of Service: 18:27 Assessment and Plan (1) Pneumonia: Current visit: Yes Status: Acute Near fever in setting of neutropenia in patient with complaints of cough, and imaging with potential RLL Infiltrate. Initiate antibiotic therapy with Cefepime, with low threshold for Vancomycin. Check blood and sputum cultures. Monitor temperature carefully. (2) Vasovagal syncope: Current visit: Yes Status: Acute In setting of dehydration, orthostatic hypotension, possible infection, and anemia. Continue hydration and monitor blood counts. (3) Drug-induced leukopenia: Current visit: No Status: Acute Received Neulasta. Continue to monitor counts. Continued neutropenia with ANC value of 40, temperature of 37.9 overnight, and potential infiltrate by CXR. Antibiotic therapy as above. (4) Breast cancer metastasized to axillary lymph node: Current visit: No Status: Acute Noted. Currently on AC Chemo. (5) DVT prophylaxis: Current visit: Yes Status: Acute SCD's, TEDs given pancytopenia/thrombocytopenia. Subjective Interval history since last seen: 58 year old woman with a prior medical history significant for Breast Ca on chemotherapy, admitted from [facility] Emergency Department following a syncopal episode. Mrs. Joseph has a prior history of Breast Ca metastatic to Lymph Nodes, s/p lumpectomy and 4 cycles of AC Chemotherapy. She presented to the ED with reported nausea and vomiting post-chemo, increased cough over the prior 2 weeks, followed by a syncopal episode that appeared to be vasovagal in nature. She suffered trauma to her head during the fall. Work-up in the ED was significant for a right sided hematoma of the head with a negative CT, orthostatic hypotension, and pancytopenia with significant neutropenia. According to subsequent phone discussion with the oncology Fellow the patient had received G-CSF in the form of Neulasta, and given her negative urinalysis and CXR no antibiotic therapy was recommended unless she developed a fever. At that point the patient was referred for admission for observation and hydration. This morning Mrs. Joseph's WBC is slightly improved, although with continued significant neutropenia. She also was noted to have elevated temperatures of 37.8 and 37.9 overnight. Repeat urinalysis remained negative, but CXR showed potential small RLL infiltrate. The patient also continues to endorse a cough, now ongoing for 1-2 weeks. No other events reported. Exam Narrative Exam Narrative: General: Patient appears comfortable, AAOX3, NAD HEENT: Right forehead hematoma noted. Neck supple CV: Regular, nontachycardic, S1S2, No rubs, murmurs, or gallops. Pulmonary: Clear to auscultation bilaterally, no crackles, wheezing, or rhonchi Abdomen: + Bowel Sounds, soft, nontender, nondistended Vascular: No lower extremity edema Neurologic: CN II-XII grossly intact. No focal deficits. Psych: Normal mood and affect. Objective Objective Clinical Data: Abnormal lab results 08/20/18 08/20/18 08/20/18 Range/Units 06:35 06:35 11:45 WBC 0.54 L* D (4.4-10.8) k/cumm RBC 2.27 L (4.00-5.20) m/cumm Hgb 7.2 L D (12.0-15.5) g/dL Hct 21.3 L D (36.0-46.0) % Plt Count 33 L (130-400) x1000/uL Absolute Neutrophils 0.04 L* (1.2-6.7) k/cumm Absolute Lymphocytes 0.40 L (1.2-3.4) k/cumm Absolute Monocytes 0.02 L (0.11-0.7) k/cumm Potassium 3.3 L (3.5-5.1) mmol/L Chloride 109 H (98-107) mmol/L Calcium 7.3 L (8.5-10.1) mg/dL Magnesium 1.7 L (1.8-2.4) mg/dL Urine Urobilinogen 1.0 H (Up TO 0.2) EU/dL Vital Signs Temperature 36.7 C 08/20/18 15:25 Temperature Source Tympanic 08/20/18 15:25 Pulse 86 08/20/18 15:25 Pulse Rhythm Regular 08/20/18 08:05 Pulse 83 08/19/18 08:00 Respiratory Rate 17 08/20/18 15:25 Respiratory Effort 08/20/18 08:05 Respiratory Depth Normal 08/20/18 08:05 Respiratory Pattern Normal 08/20/18 08:05 Blood Pressure 109/70 08/20/18 15:25 Blood Pressure Mean 64 08/19/18 06:46 Pulse Oximetry 100 03/30/19 15:25 Oxygen Delivery Method Room Air 08/20/18 15:25 Oxygen Flow Rate 0 08/20/18 15:25 Pain Level 0 08/19/18 23:53 Comment 08/19/18 11:15 Intake & Output 08/19/18 08/20/18 08/20/18 23:59 11:59 23:59 Intake Total 3651.250 / 4751.750 1704.167 / 2814.167 1110.000 / 2814.167 Output Total 600 / 900 1600 / 1600 Balance 3051.250 / 3851.750 104.167 / 3884.492 6096.000 / 1214.167 Weight 83.007 kg Intake: IV 2501.250 / 3601.750 1704.167 / 2304.167 600.000 / 2304.167 Oral 1150 / 1150 510 / 510 Output: Urine 600 / 900 1600 / 1600 Other: Urine Color Yellow Yellow Urine Appearance Clear Clear Urine Odor None Normal Voiding Methods Toilet Toilet Laboratory Results WBC 0.54 k/cumm (4.4-10.8) L* D 08/20/18 06:35 RBC 2.27 m/cumm (4.00-5.20) L 08/20/18 06:35 Hgb 7.2 g/dL (12.0-15.5) L D 08/20/18 06:35 Hct 21.3 % (36.0-46.0) L D 08/20/18 06:35 MCV 93.8 fL (80-95) 08/20/18 06:35 MCH 31.7 pg (27.0-33.0) 08/20/18 06:35 MCHC 33.8 g/dL (32.0-36.0) 08/20/18 06:35 RDW 14.3 % (11.7-14.6) 08/20/18 06:35 Plt Count 33 x1000/uL (130-400) L 08/20/18 06:35 MPV 10.4 fL (8.0-11.0) 08/20/18 06:35 Immature Gran % 0.0 08/20/18 06:35 Neutrophils % 8.0 08/20/18 06:35 Band Neutrophils % 0.0 % 08/19/18 04:54 Lymphocytes % 74.0 08/20/18 06:35 Atypical Lymphs % 0 08/19/18 04:54 Monocytes % 4.0 08/20/18 06:35 Eosinophils % 2.0 08/20/18 06:35 Basophils % 12.0 08/20/18 06:35 Absolute Neutrophils 0.04 k/cumm (1.2-6.7) L* 08/20/18 06:35 Absolute Lymphocytes 0.40 k/cumm (1.2-3.4) L 08/20/18 06:35 Absolute Monocytes 0.02 k/cumm (0.11-0.7) L 08/20/18 06:35 Absolute Eosinophils 0.01 k/cumm (0.0-0.7) 08/20/18 06:35 Absolute Basophils 0.06 k/cumm (0.0-0.2) 08/20/18 06:35 Differential Comment Manual differential 08/20/18 06:35 RBC Morphology Normal 08/19/18 04:54 Sodium 142 mmol/L (136-145) 08/20/18 06:35 Potassium 3.3 mmol/L (3.5-5.1) L 08/20/18 06:35 Chloride 109 mmol/L (98-107) H 08/20/18 06:35 Carbon Dioxide 25.4 mmol/L (21.0-32.0) 08/20/18 06:35 Anion Gap 7.6 mmol/L (3-11) 08/20/18 06:35 BUN 8 mg/dL (7-18) D 08/20/18 06:35 Creatinine 0.57 mg/dL (0.55-1.02) 08/20/18 06:35 Estimated GFR/1.73 m2 >= 60.00 (mL/min/1.73m2) 08/20/18 06:35 Glucose 86 mg/dL (70-100) D 08/20/18 06:35 Calcium 7.3 mg/dL (8.5-10.1) L 08/20/18 06:35 Magnesium 1.7 mg/dL (1.8-2.4) L 08/20/18 06:35 Total Bilirubin 0.6 mg/dL (0.2-1.0) 08/19/18 04:54 AST 26 U/L (15-37) 08/19/18 04:54 ALT 32 U/L (12-78) 08/19/18 04:54 Alkaline Phosphatase 86 U/L (46-116) 08/19/18 04:54 Troponin I 0.02 ng/mL (0.00-0.06) 08/19/18 04:41 Total Protein 6.3 g/dL (6.4-8.2) L 08/19/18 04:54 Albumin 3.0 g/dL (3.4-5.0) L 08/19/18 04:54 Urine Color Yellow (Yellow) 08/20/18 11:45 Urine Clarity Clear 08/20/18 11:45 Urine pH 5.5 (5-8) 08/20/18 11:45 Ur Specific [place] 1.010 (1.005-1.025) 08/20/18 11:45 Urine Protein Negative mg/dL (Negative) 08/20/18 11:45 Urine Ketones Negative mg/dL (Negative) 08/20/18 11:45 Urine Blood Negative (Negative) 08/20/18 11:45 Urine Nitrite Negative (Negative) 08/20/18 11:45 Urine Bilirubin Negative (Negative) 08/20/18 11:45 Urine Urobilinogen 1.0 EU/dL (Up TO 0.2) H 08/20/18 11:45 Ur Leukocyte Esterase Negative (Negative) 08/20/18 11:45 Urine RBC 0-2 (0-2) 08/19/18 05:35 Urine WBC 0-2 HPF (0-5) 08/19/18 05:35 Ur Epithelial Cells Many HPF (Negative) 08/19/18 05:35 Urine Crystals Negative HPF (Negative) 08/19/18 05:35 Urine Bacteria Few HPF (Negative) 08/19/18 05:35 Urine Casts 0-2 fine granular LPF (Negative) 08/19/18 05:35 Urine Mucus Negative (Negative) 08/19/18 05:35 Ur Culture Indicated? No/sq. contamination 08/19/18 05:35 Urine Glucose Negative mg/dL (Negative) 08/20/18 11:45 Objective Narrative Objective Narrative: EXAM: XR Chest, 2 Views EXAM DATE/TIME: 08/20/2018 10:55 AM CLINICAL HISTORY: 58 years old, female; Signs and symptoms; Other: Neutropenia, elevated temp TECHNIQUE: Imaging protocol: XR of the chest, 2 views. COMPARISON: CT CHEST PE CTA 08/19/2018 5:51 AM FINDINGS: Lungs: Mild opacities in the right lower lobe may represent mild atelectasis or pneumonia. Pleural space: Unremarkable. No pleural effusion. No pneumothorax. Heart/Mediastinum: Unremarkable. No cardiomegaly. Vasculature: MediPort terminates in the superior vena cava Bones/joints: Unremarkable. IMPRESSION: Mild opacities in the right lower lobe may represent mild atelectasis or pneumonia.
[2018-08-20 19:35] VITALS: BP 108/63; PULSE 83; RESP 16; TEMP 36.6; O2SAT 96
[2018-08-21] VITALS (22 sets, daily range): BP systolic 83–125; BP diastolic 51–87; PULSE 68–90; RESP 15–20; TEMP 36.2–37.2; O2SAT 96–99
[2018-08-21] MEDS: CEFEPIME 2 GM in Normal Saline 100 ML IVPB ×3 (00:55→16:45)
[2018-08-21] MEDS: Normal Saline 100 ML (00:55)
[2018-08-21] MEDS: Normal Saline 1,000 ML 125 ML IV ×3 (00:56→16:44)
[2018-08-21] MEDS: Normal Saline 500 ML IV (01:43)
[2018-08-21] MEDS: guaiFENesin 200 MG/10 ML CUP 100 MG PO ×4 (01:58→21:25)
[2018-08-21] MEDS: Acetaminophen 325 MG TAB PO ×2 (01:58→07:21)
[2018-08-21 02:05] LABS: HCT 21.5 % (36.0-46.0); HGB 7.2 g/dL (12.0-15.5)
[2018-08-21 07:49] LABS: Abs Immature Grans 0.01 k/cumm (0.0-0.09); Mean Corp. HGB Concentration 33.2 g/dL (32.0-36.0); Mean Corpuscular Hemoglobin 31.1 pg (27.0-33.0); Mean Corpuscular Volume 93.7 fL (80-95); Mean Platelet Volume 10.3 fL (8.0-11.0); RBC 2.22 m/cumm (4.00-5.20); RBC Distribution Width 14.5 % (11.7-14.6)
[2018-08-21] MEDS: Normal Saline Flush 10 ML SYR IVP ×3 (08:04→18:15)
[2018-08-21] MEDS: Sucralfate 1 GM TAB PO ×4 (08:04→21:25)
[2018-08-21] MEDS: Pantoprazole 40 MG VIAL IVP ×2 (08:04→21:25)
[2018-08-21 08:07] LABS: Anion Gap 7.5 mmol/L (3-11); BUN 6 mg/dL (7-18); CO2 24.5 mmol/L (21.0-32.0); CREATININE 0.53 mg/dL (0.55-1.02); Calcium 7.3 mg/dL (8.5-10.1); Chloride 110 mmol/L (98-107); Glucose 88 mg/dL (70-100); Magnesium 1.5 mg/dL (1.8-2.4); Potassium 3.5 mmol/L (3.5-5.1); Sodium 142 mmol/L (136-145)
[2018-08-21 08:10] LABS: White Blood Cell Count 1.03 k/cumm (4.4-10.8)
[2018-08-21 08:11] LABS: HCT 20.8 % (36.0-46.0); HGB 6.9 g/dL (12.0-15.5); Platelet Count 27 x1000/uL (130-400)
[2018-08-21 08:12] LABS: Absolute Neutrophil Count 0.33 k/cumm (1.2-6.7)
[2018-08-21 08:13] LABS: Absolute Basophil Count 0.12 k/cumm (0.0-0.2); Absolute Lymphocyte Count 0.48 k/cumm (1.2-3.4); Absolute Monocyte Count 0.09 k/cumm (0.11-0.7); Diff Comment Manual Differential; Nucleated RBC 1 /100WBC
[2018-08-21 08:16] LABS: RBC Morphology Normal
[2018-08-21] MEDS: Potassium Chloride 20 MEQ TABCR 40 MEQ PO (09:13)
[2018-08-21] MEDS: MAGNESIUM SULFATE 2 GM/50 ML BAG IVPB (09:13)
[2018-08-21] MEDS: Calcium Carbonate *TUMS* 500 MG CHEW PO (11:31)
[2018-08-21] MEDS: traMADol 50 MG TAB PO ×2 (12:57→23:18)
--- NOTE | 2018-08-21 13:32 | PDOC.CMPRO ---
- If Service Date Differs Date of service: 08/21/18 Time of Service: 13:32 Care Management Progress Note S/O: Nakul is sitting up in her bed when this public relations writer visits this morning. She reports that she did not get a lot of sleep last night, and is not feeling very well today. Nakul reports that her son, DIL, and grandson are seeing [employer] patrol today and that she will most likely see them tomorrow as they were in [place] for the show. Nakul will have a blood transfusion today, which she states she is hopeful will help with her energy level. Nakul reports that she is scheduled to have chemo on , though states that she does not believe this will happen as she has been hospitalized. A: 58 y/o female admitted 08/19/18 for vasovagal syncope P: Nakul will return home once medically cleared. She will f/U with PCP and plan of care as prescribed. Nakul to also f/u with her oncologist outpatient. Her family will transport her home.
--- NOTE | 2018-08-21 13:35 | CMPROGNOTE_ITS ---
- If Service Date Differs Date of service: 08/21/18 Time of Service: 13:32 Care Management Progress Note S/O: Nakul is sitting up in her bed when this science writer visits this morning. She reports that she did not get a lot of sleep last night, and is not feeling very well today. Nakul reports that her son, DIL, and grandson are seeing paw patrol today and that she will most likely see them tomorrow as they were in [place] for the show. Nakul will have a blood transfusion today, which she states she is hopeful will help with her energy level. Nakul reports that she is scheduled to have chemo on , though states that she does not believe this will happen as she has been hospitalized. A: 58 y/o female admitted 08/19/18 for vasovagal syncope P: Nakul will return home once medically cleared. She will f/U with PCP and plan of care as prescribed. Nakul to also f/u with her oncologist outpatient. Her family will transport her home.
[2018-08-21] MEDS: diphenhydrAMINE 25 MG CAP PO (13:45)
[2018-08-21] MEDS: Acetaminophen 325 MG TAB 650 MG PO (13:46)
--- NOTE | 2018-08-21 14:41 | W.PM.PROGNOT ---
Date of Service Date of service: 08/21/18 Time of Service: 14:41 Assessment and Plan (1) Pneumonia: Current visit: Yes Status: Acute Near fever in setting of neutropenia in patient with complaints of cough, right sided lower chest wall pain, and imaging with potential RLL Infiltrate. Continue antibiotic therapy with Cefepime, now day #2. Check blood and sputum cultures. Rapid flu negative. Monitor temperature carefully. (2) Vasovagal syncope: Current visit: Yes Status: Acute In setting of dehydration, orthostatic hypotension, possible infection, and anemia. Continue hydration and monitor blood counts. (3) Drug-induced leukopenia: Current visit: No Status: Acute Received Neulasta. Continue to monitor counts. Continued neutropenia with ANC value improved to 330. Antibiotic therapy as above. (4) Breast cancer metastasized to axillary lymph node: Current visit: No Status: Acute Noted. Currently on Chemo - follows with [facility] oncology. (5) Anemia: Current visit: Yes Status: Chronic Hgb <7 - will transfuse with 2 units. (6) Thrombocytopenia: Current visit: No Status: Chronic Platelet count above 20,000. Monitor closely, with low threshold for transfusion. (7) DVT prophylaxis: Current visit: Yes Status: Acute SCD's, TEDs given pancytopenia with anemia and thrombocytopenia. Subjective Interval history since last seen: 58 year old woman with a prior medical history significant for Breast Ca on chemotherapy, admitted from [facility] Emergency Department on 08/19 following a syncopal episode. Mrs. Joseph has a prior history of Breast Ca metastatic to Lymph Nodes, s/p lumpectomy and 4 cycles of AC Chemotherapy. She presented to the ED with reported nausea and vomiting post-chemo, increased cough over the prior 2 weeks, followed by a syncopal episode that appeared to be vasovagal in nature. She suffered trauma to her head during the fall. Work-up in the ED was significant for a right sided hematoma of the head with a negative CT, orthostatic hypotension, and pancytopenia with significant neutropenia. According to subsequent phone discussion with the oncology Fellow the patient had received G-CSF in the form of Neulasta, and given her negative urinalysis and CXR no antibiotic therapy was recommended unless she developed a fever. At that point the patient was referred for admission for observation and hydration. The patient was noted to have a temperature of 37.8 and 37.9 on the day and evening of 08/19, and while her WBC had improved improved slightly, she remained significantly neutropenic. Repeat urinalysis remained negative, but CXR showed potential small RLL infiltrate, and the patient had reported an ongoing cough and pain in her right lower rib cage. She was initiated on Cefepime, and while she continues to endorse a cough, she reports resolution of her pain this morning. Her white count continues to improve, but both her Hgb and plateletes appear worse this morning. No other events reported. She remains afebrile. Exam Narrative Exam Narrative: General: Patient appears comfortable, AAOX3, NAD HEENT: Right forehead hematoma noted, with echymosis overlying right eye. Neck supple. CV: Regular, nontachycardic, S1S2, No rubs, murmurs, or gallops. Pulmonary: Clear to auscultation bilaterally, no crackles, wheezing, or rhonchi Abdomen: + Bowel Sounds, soft, nontender, nondistended Vascular: No lower extremity edema Psych: Normal mood and affect. Objective Objective Clinical Data: Abnormal lab results 08/21/18 08/21/18 08/21/18 Range/Units 01:37 01:37 01:37 WBC (4.4-10.8) k/cumm RBC (4.00-5.20) m/cumm Hgb 7.2 L (12.0-15.5) g/dL Hct 21.5 L (36.0-46.0) % Plt Count (130-400) x1000/uL Absolute Neutrophils (1.2-6.7) k/cumm Absolute Lymphocytes (1.2-3.4) k/cumm Absolute Monocytes (0.11-0.7) k/cumm Chloride (98-107) mmol/L BUN (7-18) mg/dL Creatinine (0.55-1.02) mg/dL Calcium (8.5-10.1) mg/dL Magnesium (1.8-2.4) mg/dL Crossmatch See Detail See Detail 08/21/18 08/21/18 Range/Units 07:00 07:00 WBC 1.03 L* D (4.4-10.8) k/cumm RBC 2.22 L (4.00-5.20) m/cumm Hgb 6.9 L* (12.0-15.5) g/dL Hct 20.8 L* (36.0-46.0) % Plt Count 27 L* (130-400) x1000/uL Absolute Neutrophils 0.33 L* (1.2-6.7) k/cumm Absolute Lymphocytes 0.48 L (1.2-3.4) k/cumm Absolute Monocytes 0.09 L (0.11-0.7) k/cumm Chloride 110 H (98-107) mmol/L BUN 6 L (7-18) mg/dL Creatinine 0.53 L (0.55-1.02) mg/dL Calcium 7.3 L (8.5-10.1) mg/dL Magnesium 1.5 L (1.8-2.4) mg/dL Crossmatch Vital Signs Temperature 36.3 C L 08/21/18 14:29 Temperature Source Tympanic 08/21/18 11:35 Pulse 77 08/21/18 14:29 Pulse Rhythm Regular 08/21/18 01:00 Pulse 83 08/19/18 08:00 Respiratory Rate 18 08/21/18 14:29 Respiratory Effort Non-Labored 08/21/18 01:00 Respiratory Depth Normal 08/21/18 01:00 Respiratory Pattern Normal 08/21/18 01:00 Blood Pressure 125/76 08/21/18 14:29 Blood Pressure Mean 64 08/19/18 06:46 Pulse Oximetry 98 08/21/18 14:29 Oxygen Delivery Method Room Air 08/21/18 14:29 Oxygen Flow Rate 0 08/21/18 14:29 Pain Level 8 08/21/18 12:57 Comment 08/19/18 11:15 Intake & Output 08/20/18 08/21/18 08/21/18 23:59 11:59 23:59 Intake Total 1210.000 / 2914.167 3068.750 / 3068.750 Output Total 2400 / 2850 450 / 2850 Balance 1210.000 / 1314.167 668.750 / 218.750 -450 / 218.750 Weight 83.3 kg Intake: IV 700.000 / 2404.167 2348.750 / 2348.750 Oral 510 / 510 720 / 720 Output: Urine 2400 / 2850 450 / 2850 Other: Urine Color Yellow Yellow Yellow Urine Appearance Clear Clear Clear Urine Odor None None Comment voids in toilet Void x1 in the toilet. Void x1 in the toilet. Stool Occult Blood Negative Stool Size Small Stool Characteristics [place] Voiding Methods Toilet Toilet Toilet Laboratory Results WBC 1.03 k/cumm (4.4-10.8) L* D 08/21/18 07:00 RBC 2.22 m/cumm (4.00-5.20) L 08/21/18 07:00 Hgb 6.9 g/dL (12.0-15.5) L* 08/21/18 07:00 Hct 20.8 % (36.0-46.0) L* 08/21/18 07:00 MCV 93.7 fL (80-95) 08/21/18 07:00 MCH 31.1 pg (27.0-33.0) 08/21/18 07:00 MCHC 33.2 g/dL (32.0-36.0) 08/21/18 07:00 RDW 14.5 % (11.7-14.6) 08/21/18 07:00 Plt Count 27 x1000/uL (130-400) L* 08/21/18 07:00 MPV 10.3 fL (8.0-11.0) 08/21/18 07:00 Immature Gran % See Differential 08/21/18 07:00 Neutrophils % 32.0 08/21/18 07:00 Band Neutrophils % 0.0 % 08/19/18 04:54 Lymphocytes % 47.0 08/21/18 07:00 Atypical Lymphs % 0 08/19/18 04:54 Monocytes % 9.0 08/21/18 07:00 Eosinophils % 0.0 08/21/18 07:00 Basophils % 12.0 08/21/18 07:00 Absolute Neutrophils 0.33 k/cumm (1.2-6.7) L* 08/21/18 07:00 Absolute Lymphocytes 0.48 k/cumm (1.2-3.4) L 08/21/18 07:00 Absolute Monocytes 0.09 k/cumm (0.11-0.7) L 08/21/18 07:00 Absolute Eosinophils 0.00 k/cumm (0.0-0.7) 08/21/18 07:00 Absolute Basophils 0.12 k/cumm (0.0-0.2) 08/21/18 07:00 Nucleated RBCs 1 /100WBC 08/21/18 07:00 Differential Comment Manual differential 08/21/18 07:00 RBC Morphology Normal 08/21/18 07:00 Sodium 142 mmol/L (136-145) 08/21/18 07:00 Potassium 3.5 mmol/L (3.5-5.1) 08/21/18 07:00 Chloride 110 mmol/L (98-107) H 08/21/18 07:00 Carbon Dioxide 24.5 mmol/L (21.0-32.0) 08/21/18 07:00 Anion Gap 7.5 mmol/L (3-11) 08/21/18 07:00 BUN 6 mg/dL (7-18) L 08/21/18 07:00 Creatinine 0.53 mg/dL (0.55-1.02) L 08/21/18 07:00 Estimated GFR/1.73 m2 >= 60.00 (mL/min/1.73m2) 08/21/18 07:00 Glucose 88 mg/dL (70-100) 08/21/18 07:00 Calcium 7.3 mg/dL (8.5-10.1) L 08/21/18 07:00 Magnesium 1.5 mg/dL (1.8-2.4) L 08/21/18 07:00 Total Bilirubin 0.6 mg/dL (0.2-1.0) 08/19/18 04:54 AST 26 U/L (15-37) 08/19/18 04:54 ALT 32 U/L (12-78) 08/19/18 04:54 Alkaline Phosphatase 86 U/L (46-116) 08/19/18 04:54 Troponin I 0.02 ng/mL (0.00-0.06) 08/19/18 04:41 Total Protein 6.3 g/dL (6.4-8.2) L 08/19/18 04:54 Albumin 3.0 g/dL (3.4-5.0) L 08/19/18 04:54 Urine Color Yellow (Yellow) 08/20/18 11:45 Urine Clarity Clear 08/20/18 11:45 Urine pH 5.5 (5-8) 08/20/18 11:45 Ur Specific [place] 1.010 (1.005-1.025) 08/20/18 11:45 Urine Protein Negative mg/dL (Negative) 08/20/18 11:45 Urine Ketones Negative mg/dL (Negative) 08/20/18 11:45 Urine Blood Negative (Negative) 08/20/18 11:45 Urine Nitrite Negative (Negative) 08/20/18 11:45 Urine Bilirubin Negative (Negative) 08/20/18 11:45 Urine Urobilinogen 1.0 EU/dL (Up TO 0.2) H 08/20/18 11:45 Ur Leukocyte Esterase Negative (Negative) 08/20/18 11:45 Urine RBC 0-2 (0-2) 08/19/18 05:35 Urine WBC 0-2 HPF (0-5) 08/19/18 05:35 Ur Epithelial Cells Many HPF (Negative) 08/19/18 05:35 Urine Crystals Negative HPF (Negative) 08/19/18 05:35 Urine Bacteria Few HPF (Negative) 08/19/18 05:35 Urine Casts 0-2 fine granular LPF (Negative) 08/19/18 05:35 Urine Mucus Negative (Negative) 08/19/18 05:35 Ur Culture Indicated? No/sq. contamination 08/19/18 05:35 Urine Glucose Negative mg/dL (Negative) 08/20/18 11:45 Patient ABO/Rh O Positive 08/21/18 01:37 Antibody Screen Negative 08/21/18 01:37 Crossmatch See Detail 08/21/18 01:37
[2018-08-22] MEDS: CEFEPIME 2 GM in Normal Saline 100 ML IVPB ×2 (00:42→08:19)
[2018-08-22 03:51] VITALS: BP 98/55; PULSE 74; RESP 18; TEMP 36.6; O2SAT 94
[2018-08-22] MEDS: Normal Saline 1,000 ML 125 ML IV ×2 (04:19→12:08)
[2018-08-22] MEDS: Mylanta Suspension 30 ML CUP PO (04:33)
[2018-08-22] MEDS: Calcium Carbonate *TUMS* 500 MG CHEW PO (04:33)
[2018-08-22] MEDS: guaiFENesin 200 MG/10 ML CUP 100 MG PO ×4 (04:34→23:42)
[2018-08-22 07:47] LABS: Absolute Eosinophil Count 0.02 k/cumm (0.0-0.7); HCT 28.4 % (36.0-46.0); HGB 9.7 g/dL (12.0-15.5); Mean Corp. HGB Concentration 34.2 g/dL (32.0-36.0); Mean Corpuscular Hemoglobin 30.4 pg (27.0-33.0); Mean Platelet Volume 11.8 fL (8.0-11.0); RBC 3.19 m/cumm (4.00-5.20); White Blood Cell Count 2.24 k/cumm (4.4-10.8)
[2018-08-22 07:52] LABS: Anion Gap 7.5 mmol/L (3-11); BUN 6 mg/dL (7-18); CO2 26.5 mmol/L (21.0-32.0); CREATININE 0.55 mg/dL (0.55-1.02); Calcium 7.9 mg/dL (8.5-10.1); Chloride 108 mmol/L (98-107); Glucose 92 mg/dL (70-100); Magnesium 1.9 mg/dL (1.8-2.4); Potassium 3.8 mmol/L (3.5-5.1); Sodium 142 mmol/L (136-145)
[2018-08-22 08:00] VITALS: BP 103/55; PULSE 67; RESP 18; TEMP 36.7; O2SAT 97
[2018-08-22 08:09] LABS: Absolute Neutrophil Count 1.28 k/cumm (1.2-6.7); Platelet Count 40 x1000/uL (130-400)
[2018-08-22 08:10] LABS: Absolute Basophil Count 0.16 k/cumm (0.0-0.2); Absolute Lymphocyte Count 0.43 k/cumm (1.2-3.4); Absolute Monocyte Count 0.36 k/cumm (0.11-0.7); Diff Comment Manual Differential; RBC Morphology Normal
[2018-08-22] MEDS: Sucralfate 1 GM TAB PO ×4 (08:20→21:40)
[2018-08-22] MEDS: Normal Saline Flush 10 ML SYR IVP (08:20)
[2018-08-22] MEDS: Pantoprazole 40 MG VIAL IVP ×2 (08:21→19:22)
[2018-08-22] MEDS: traMADol 50 MG TAB PO (08:51)
[2018-08-22] MEDS: Magnesium Oxide 400 MG TAB PO (09:41)
[2018-08-22] MEDS: Potassium Chloride 20 MEQ TABCR 40 MEQ PO (09:42)
--- NOTE | 2018-08-22 10:36 | PDOC.CMPRO ---
- If Service Date Differs Date of service: 08/22/18 Time of Service: 10:36 Care Management Progress Note S/O: Nakul is sitting up in bed when this production underwriter visits this morning, she is receptive to discussion. Nakul reports feeling a little better today and states that she believes this is due to the units of blood that she received yesterday. No change in DC plan. A: 58 y/o female admitted 08/19/18 for vasovagal syncope P: Nakul will return home once medically cleared. She will f/U with PCP and plan of care as prescribed. Nakul to also f/u with her oncologist outpatient. Her family will transport her home.
[2018-08-22 11:24] VITALS: BP 109/68; PULSE 80; RESP 18; TEMP 36.5; O2SAT 96
[2018-08-22] MEDS: metroNIDAZOLE 500 MG TAB PO ×2 (12:12→19:22)
[2018-08-22] MEDS: Acetaminophen 325 MG TAB 650 MG PO (15:41)
[2018-08-22 16:51] VITALS: BP 120/73; PULSE 83; RESP 17; TEMP 36.8; O2SAT 98
--- NOTE | 2018-08-22 17:56 | PGE_ITS ---
Date of Service Date of service: 08/22/18 Time of Service: 17:55 Assessment and Plan (1) Pneumonia: Current visit: Yes Status: Acute Near fever in setting of neutropenia in patient with complaints of cough, right sided lower chest wall pain, and imaging with potential RLL Infiltrate. Patient appears improved on antibiotic therapy with Cefepime. She is no longer neutropenic - will change to oral antibiotics with Cefpodoxime, and given that RLL infiltrate is in the setting of vomiting, will cover for aspiration with Metronidazole as well. Plan was discussed with Oncology at [facility] who agrees. Rapid flu negative. Monitor temperature carefully. (2) Vasovagal syncope: Current visit: Yes Status: Acute In setting of dehydration, orthostatic hypotension, possible infection, and anemia. Patient was hydrated. Monitor blood counts. (3) Drug-induced leukopenia: Current visit: No Status: Acute Received Neulasta. Continue to monitor counts. No longer neutropenic. Antibiotic therapy as above. (4) Breast cancer metastasized to axillary lymph node: Current visit: No Status: Acute Noted. Currently on Chemo - follows with [facility] oncology. (5) Anemia: Current visit: Yes Status: Chronic Hgb <7, improved to 9.7 with 2 units of PRBCs. (6) Thrombocytopenia: Current visit: No Status: Chronic Platelet count above 20,000, and improved today. Monitor closely, with plans for repeat as outpatient. (7) DVT prophylaxis: Current visit: Yes Status: Acute SCD's, TEDs given pancytopenia with anemia and thrombocytopenia. Subjective Interval history since last seen: 58 year old woman with a prior medical history significant for Breast Ca on chemotherapy, admitted from [facility] Emergency Department on 08/19 following a syncopal episode. Mrs. Joseph has a prior history of Breast Ca metastatic to Lymph Nodes, s/p lumpectomy and 4 cycles of AC Chemotherapy. She presented to the ED with reported nausea and vomiting post-chemo, increased cough over the prior 2 weeks, followed by a syncopal episode that appeared to be vasovagal in nature. She suffered trauma to her head during the fall. Work-up in the ED was significant for a right sided hematoma of the head with a negative CT, orthostatic hypotension, and pancytopenia with significant neutropenia. According to subsequent phone discussion with the oncology Fellow the patient had received G- CSF in the form of Neulasta, and given her negative urinalysis and CXR no antibiotic therapy was recommended unless she developed a fever. At that point the patient was referred for admission for observation and hydration. The patient was noted to have a temperature of 37.8 and 37.9 on the day and evening of 08/19, and while her WBC had improved improved slightly, she remained significantly neutropenic. Repeat urinalysis remained negative, but CXR showed potential small RLL infiltrate, and the patient had reported an ongoing cough and pain in her right lower rib cage. She was initiated on Cefepime, and while she continues to endorse a cough, she reports resolution of her pain this morning. Her white count continues to improve, and she is now no longer neutropenic. Her Hgb and plateletes appeared worse yesterday, and she required transfusion with PRBCs - both values are improved this morning. No other events reported. She remains afebrile. Exam Narrative Exam Narrative: General: Patient appears comfortable, AAOX3, NAD HEENT: Right forehead hematoma noted, with echymosis overlying right eye. Neck supple. CV: Regular, nontachycardic, S1S2, No rubs, murmurs, or gallops. Pulmonary: Clear to auscultation bilaterally, no crackles, wheezing, or rhonchi Abdomen: + Bowel Sounds, soft, nontender, nondistended Vascular: No lower extremity edema Psych: Normal mood and affect. Objective Objective Clinical Data: Abnormal lab results 08/21/18 08/22/18 08/22/18 Range/Units 01:37 07:05 07:05 WBC 2.24 L D (4.4-10.8) k/cumm RBC 3.19 L (4.00-5.20) m/cumm Hgb 9.7 L D (12.0-15.5) g/dL Hct 28.4 L D (36.0-46.0) % RDW 15.0 H (11.7-14.6) % Plt Count 40 L (130-400) x1000/uL MPV 11.8 H (8.0-11.0) fL Absolute Lymphocytes 0.43 L (1.2-3.4) k/cumm Chloride 108 H (98-107) mmol/L BUN 6 L (7-18) mg/dL Calcium 7.9 L (8.5-10.1) mg/dL Crossmatch See Detail Vital Signs Temperature 36.8 C 08/22/18 16:51 Temperature Source Tympanic 08/22/18 16:51 Pulse 83 08/22/18 16:51 Pulse Rhythm Regular 08/22/18 15:36 Pulse 83 08/19/18 08:00 Respiratory Rate 17 08/22/18 16:51 Respiratory Effort Non-Labored 08/22/18 15:36 Respiratory Depth Normal 08/22/18 15:36 Respiratory Pattern Normal 08/22/18 15:36 Blood Pressure 120/73 08/22/18 16:51 Blood Pressure Mean 64 08/19/18 06:46 Pulse Oximetry 98 08/22/18 16:51 Oxygen Delivery Method Room Air 08/22/18 16:51 Oxygen Flow Rate 0 08/22/18 16:51 Pain Level 6 08/22/18 08:51 Comment 08/21/18 08:15 Intake & Output 08/21/18 08/22/18 08/22/18 23:59 11:59 23:59 Intake Total 2250.583 / 5389.333 987.5 / 2204.583 1217.083 / 2204.583 Output Total 1500 / 3900 3075 / 4675 1600 / 4675 Balance 750.583 / 1489.333 -2087.5 / -2470.417 -382.917 / -2470.417 Weight 85.8 kg Intake: IV 924.583 / 3343.333 987.5 / 1963.583 977.083 / 1963.583 Oral 480 / 1200 240 / 240 Blood Product 650 / 650 Rbc Leuko Reduced Unit 250 / 250 [id number] Rbc Leuko Reduced Unit 400 / 400 [id number] Other 196 / 196 Rbc Leuko Reduced Unit 146 / 146 [id number] Rbc Leuko Reduced Unit 50 / 50 [id number] Output: Urine 1500 / 3900 3075 / 4675 1600 / 4675 Other: Urine Color Yellow Yellow Yellow Urine Appearance Clear Clear Clear Urine Odor None Normal Normal Comment Void x1 in the toilet. Voiding Methods Toilet Toilet Toilet Laboratory Results WBC 2.24 k/cumm (4.4-10.8) L D 08/22/18 07:05 RBC 3.19 m/cumm (4.00-5.20) L 08/22/18 07:05 Hgb 9.7 g/dL (12.0-15.5) L D 08/22/18 07:05 Hct 28.4 % (36.0-46.0) L D 08/22/18 07:05 MCV 89.0 fL (80-95) 08/22/18 07:05 MCH 30.4 pg (27.0-33.0) 08/22/18 07:05 MCHC 34.2 g/dL (32.0-36.0) 08/22/18 07:05 RDW 15.0 % (11.7-14.6) H 08/22/18 07:05 Plt Count 40 x1000/uL (130-400) L 08/22/18 07:05 MPV 11.8 fL (8.0-11.0) H 08/22/18 07:05 Immature Gran % 0.0 08/22/18 07:05 Neutrophils % 52.0 08/22/18 07:05 Band Neutrophils % 5.0 % 08/22/18 07:05 Lymphocytes % 19.0 08/22/18 07:05 Atypical Lymphs % 0 08/19/18 04:54 Monocytes % 16.0 08/22/18 07:05 Eosinophils % 1.0 08/22/18 07:05 Basophils % 7.0 08/22/18 07:05 Absolute Neutrophils 1.28 k/cumm (1.2-6.7) 08/22/18 07:05 Absolute Lymphocytes 0.43 k/cumm (1.2-3.4) L 08/22/18 07:05 Absolute Monocytes 0.36 k/cumm (0.11-0.7) 08/22/18 07:05 Absolute Eosinophils 0.02 k/cumm (0.0-0.7) 08/22/18 07:05 Absolute Basophils 0.16 k/cumm (0.0-0.2) 08/22/18 07:05 Nucleated RBCs 1 /100WBC 08/21/18 07:00 Differential Comment Manual differential 08/22/18 07:05 RBC Morphology Normal 08/22/18 07:05 Sodium 142 mmol/L (136-145) 08/22/18 07:05 Potassium 3.8 mmol/L (3.5-5.1) 08/22/18 07:05 Chloride 108 mmol/L (98-107) H 08/22/18 07:05 Carbon Dioxide 26.5 mmol/L (21.0-32.0) 08/22/18 07:05 Anion Gap 7.5 mmol/L (3-11) 08/22/18 07:05 BUN 6 mg/dL (7-18) L 08/22/18 07:05 Creatinine 0.55 mg/dL (0.55-1.02) 08/22/18 07:05 Estimated GFR/1.73 m2 >= 60.00 (mL/min/1.73m2) 08/22/18 07:05 Glucose 92 mg/dL (70-100) 08/22/18 07:05 Calcium 7.9 mg/dL (8.5-10.1) L 08/22/18 07:05 Magnesium 1.9 mg/dL (1.8-2.4) 08/22/18 07:05 Total Bilirubin 0.6 mg/dL (0.2-1.0) 08/19/18 04:54 AST 26 U/L (15-37) 08/19/18 04:54 ALT 32 U/L (12-78) 08/19/18 04:54 Alkaline Phosphatase 86 U/L (46-116) 08/19/18 04:54 Troponin I 0.02 ng/mL (0.00-0.06) 08/19/18 04:41 Total Protein 6.3 g/dL (6.4-8.2) L 08/19/18 04:54 Albumin 3.0 g/dL (3.4-5.0) L 08/19/18 04:54 Urine Color Yellow (Yellow) 08/20/18 11:45 Urine Clarity Clear 08/20/18 11:45 Urine pH 5.5 (5-8) 08/20/18 11:45 Ur Specific [place] 1.010 (1.005-1.025) 08/20/18 11:45 Urine Protein Negative mg/dL (Negative) 08/20/18 11:45 Urine Ketones Negative mg/dL (Negative) 08/20/18 11:45 Urine Blood Negative (Negative) 08/20/18 11:45 Urine Nitrite Negative (Negative) 08/20/18 11:45 Urine Bilirubin Negative (Negative) 08/20/18 11:45 Urine Urobilinogen 1.0 EU/dL (Up TO 0.2) H 08/20/18 11:45 Ur Leukocyte Esterase Negative (Negative) 08/20/18 11:45 Urine RBC 0-2 (0-2) 08/19/18 05:35 Urine WBC 0-2 HPF (0-5) 08/19/18 05:35 Ur Epithelial Cells Many HPF (Negative) 08/19/18 05:35 Urine Crystals Negative HPF (Negative) 08/19/18 05:35 Urine Bacteria Few HPF (Negative) 08/19/18 05:35 Urine Casts 0-2 fine granular LPF (Negative) 08/19/18 05:35 Urine Mucus Negative (Negative) 08/19/18 05:35 Ur Culture Indicated? No/sq. contamination 08/19/18 05:35 Urine Glucose Negative mg/dL (Negative) 08/20/18 11:45 Patient ABO/Rh O Positive 08/21/18 01:37 Antibody Screen Negative 08/21/18 01:37 Crossmatch See Detail 08/21/18 01:37
[2018-08-22] MEDS: Cefpodoxime 200 MG TAB PO (19:22)
[2018-08-22 19:46] VITALS: BP 116/67; PULSE 85; RESP 18; TEMP 36.8; O2SAT 96
[2018-08-22 23:49] VITALS: BP 155/78; PULSE 64; RESP 18; TEMP 36.6; O2SAT 96
[2018-08-23 03:28] VITALS: BP 114/67; PULSE 89; RESP 18; TEMP 36.7; O2SAT 96
[2018-08-23] MEDS: metroNIDAZOLE 500 MG TAB PO ×2 (03:28→11:31)
[2018-08-23 07:18] LABS: HGB 9.6 g/dL (12.0-15.5); Mean Corp. HGB Concentration 34.3 g/dL (32.0-36.0); Mean Corpuscular Hemoglobin 30.7 pg (27.0-33.0); Mean Corpuscular Volume 89.5 fL (80-95); Mean Platelet Volume 11.1 fL (8.0-11.0); RBC 3.13 m/cumm (4.00-5.20); RBC Distribution Width 14.9 % (11.7-14.6); White Blood Cell Count 2.42 k/cumm (4.4-10.8)
[2018-08-23 07:27] LABS: BUN 5 mg/dL (7-18); CO2 28.2 mmol/L (21.0-32.0); CREATININE 0.54 mg/dL (0.55-1.02); Calcium 8.1 mg/dL (8.5-10.1); Glucose 101 mg/dL (70-100); Magnesium 1.7 mg/dL (1.8-2.4)
[2018-08-23 07:58] LABS: Anion Gap 7.8 mmol/L (3-11); Chloride 107 mmol/L (98-107); Potassium 3.8 mmol/L (3.5-5.1); Sodium 143 mmol/L (136-145)
[2018-08-23] MEDS: Pantoprazole 40 MG VIAL IVP (07:58)
[2018-08-23] MEDS: Normal Saline Flush 10 ML SYR IVP ×2 (07:58→13:53)
[2018-08-23] MEDS: Cefpodoxime 200 MG TAB PO (08:00)
[2018-08-23] MEDS: Sucralfate 1 GM TAB PO ×2 (08:00→11:31)
[2018-08-23] MEDS: Acetaminophen 325 MG TAB PO (08:10)
[2018-08-23] MEDS: guaiFENesin 200 MG/10 ML CUP 100 MG PO (08:11)
[2018-08-23 08:23] LABS: Platelet Count 50 x1000/uL (130-400)
[2018-08-23 08:24] LABS: Absolute Lymphocyte Count 0.46 k/cumm (1.2-3.4); Absolute Monocyte Count 0.36 k/cumm (0.11-0.7); Anisocytosis 1+; Diff Comment Manual Differential
[2018-08-23 08:55] VITALS: BP 121/53; PULSE 84; RESP 16; TEMP 37.2; O2SAT 97
--- NOTE | 2018-08-23 09:07 | PDOC.CMPRO ---
Care Management Progress Note S/O: Nakul Stewart: 58 year old female admitted to [facility] 08/19/18 for vasovagal syncope P: Nakul will return home once medically cleared with no additional services anticipated at this time. She will resume chemotherapy at [facility] oncology, as well as her PCP and plan of care as prescribed. She will transport via private vehicle with her family.
--- NOTE | 2018-08-23 09:09 | CMPROGNOTE_ITS ---
Care Management Progress Note S/O: Nakul Stewart: 58 year old female admitted to [facility] 08/19/18 for vasovagal syncope P: Nakul will return home once medically cleared with no additional services anticipated at this time. She will resume chemotherapy at [facility] oncology, as well as her PCP and plan of care as prescribed. She will transport via private vehicle with her family.
[2018-08-23] MEDS: Potassium Chloride 20 MEQ TABCR PO (11:01)
[2018-08-23] MEDS: Magnesium Oxide 400 MG TAB PO (11:02)
[2018-08-23 11:44] VITALS: BP 97/67; PULSE 70; RESP 16; TEMP 36.4; O2SAT 95
--- NOTE | 2018-08-23 12:17 | W.PM.DS.N ---
Date of service: 08/23/18 Time of Service: 12:17 DS: Diagnosis Discharge Diagnosis (1) Pneumonia: Status: Acute (2) Vasovagal syncope: Status: Acute (3) Drug-induced leukopenia: Status: Acute (4) Breast cancer metastasized to axillary lymph node: Status: Acute (5) Anemia: Status: Chronic (6) Thrombocytopenia: Status: Chronic (7) DVT prophylaxis: Status: Acute Discharge Plan Disposition Patient Disposition: HOME Condition: Improving Discharge Details Reason For Visit: VASOVAGAL SYNCOPE, DEHYDRATION, N/V, NEUTROPENIA, Admit Date/Time: 08/19/18 07:29 Admit Provider: Isabel Epstein Attending Provider: Isabel Epstein [facility] Hospital Course: CC: HPI: 58 year old woman with a prior medical history significant for Breast Ca on chemotherapy, admitted from [facility] Emergency Department on 08/19 following a syncopal episode. Mrs. Joseph has a prior history of Breast Ca metastatic to Lymph Nodes, s/p lumpectomy and 4 cycles of Chemotherapy. She presented to the ED with reported nausea and vomiting post-chemo, increased cough over the prior 2 weeks, followed by a syncopal episode that appeared to have been orthostatic in nature. She suffered trauma to her head during the fall. Work-up in the ED was significant for a right sided hematoma of the head with a negative CT, orthostatic hypotension, and pancytopenia with significant neutropenia. According to subsequent phone discussion with the oncology Fellow the patient had received G-CSF in the form of Neulasta, and given her negative urinalysis and CXR no antibiotic therapy was recommended unless she developed a fever. At that point the patient was referred for admission for observation and hydration. The patient was noted to have a temperature of 37.8 and 37.9 on the day and evening of 08/19, and while her WBC had improved improved slightly, she remained significantly neutropenic at the time. Repeat urinalysis remained negative, but CXR showed a potential small RLL infiltrate, and the patient had reported an ongoing cough and pain in her right lower rib cage. She was initiated on Cefepime, and while she continues to endorse a cough, she reports resolution of her pain and vast improvement in her overall symptoms. Her white count continues to improve, and she is no longer neutropenic. Her Hgb and plateletes appeared worse previously, and she required transfusion with PRBCs - both values are improved again this morning. No other events reported. She was changed to oral antibiotics yesterday, and she remains afebrile. Hospital Course: (1) Pneumonia: Near fever in setting of neutropenia in patient with complaints of cough, right sided lower chest wall pain, and imaging with potential RLL Infiltrate. Patient appeared improved on antibiotic therapy with Cefepime. As she was no longer neutropenic she was changed to oral antibiotics with Cefpodoxime, and given that RLL infiltrate is in the setting of vomiting, also covered for aspiration with Metronidazole. She has remained afebrile. Plan was discussed with Oncology at [facility] who was in agreement. Rapid flu negative. (2) Vasovagal syncope: In setting of dehydration, orthostatic hypotension, possible infection, and anemia. Patient was hydrated and doing well on antibiotics. No further episodes - remains asymptomatic. (3) Drug-induced leukopenia: Received Neulasta. No longer neutropenic, with a WBC of 2.4 and ANC of 1500 (Initial ANC of 30). Antibiotic therapy as above. (4) Breast cancer metastasized to axillary lymph node: Noted. Currently on Chemo - follows with [facility] oncology. For follow-up labs and office visit in 2 days - already scheduled. (5) Anemia: Hgb 6.9 on 08/21, improved to 9.7 with 2 units of PRBCs. 9.6 at time of discharge today. (6) Thrombocytopenia: Platelet count above 20,000, and improved today (50). Monitor closely, with plans for repeat as outpatient. (7) DVT prophylaxis: Maintained on SCD's, TEDs given pancytopenia with anemia and thrombocytopenia. (8) Esophageal Abnormality: Note made of apparent thickening of the wall of the distal esophagus by admission chest CT - deemed due to incomplete distention, but with infectious or inflammatory esophagitis not excluded. This was also in the setting of nausea/vomiting. Patient did however endorse episodes of GERD in the past. No evidence of oropharyngeal thrust on initial exam. Mrs. Joseph was initiated on PPI on a bid basis, with follow-up with oncology and PCP to determine duration of treatment. She remained without GERD like symptoms while here in the hospital. Home Meds and New Rx's Prescriptions: New cefpodoxime 200 mg Tablet 200 mg PO BID Qty: 7 RF: 0 metronidazole 500 mg Tablet 500 mg PO Q8H Qty: 10 RF: 0 omeprazole 40 mg capsule,delayed release(DR/EC) 40 mg PO BID Qty: 60 RF: 0 Continued acetaminophen [Tylenol] 325 mg tablet 650 mg PO Q6H PRNRF: 0 calcium carbonate [Tums] 300 mg (750 mg) tablet,chewable 300 mg PO QID PRNRF: 0 ibuprofen 200 mg tablet 200 mg PO QID PRNRF: 0 prochlorperazine maleate [Compazine] 10 mg tablet 10 mg PO TID PRNRF: 0 loratadine [Claritin] 10 mg tablet 10 mg PO DAILY PRNRF: 0 ondansetron HCl [Zofran] 4 mg Tablet 4 mg PO Q6H PRN PRNRF: 0 lorazepam [Ativan] 0.5 mg Tablet 0.5 mg PO QHS PRNRF: 0 Discharge Instructions Instructions: Aspiration Pneumonia (DC), Bacterial Pneumonia (DC), Neutropenia (DC) Additional Instructions: Please see your oncologist as instructed over the next 2-3 days, and your PCP over the next 7-14 days. Please complete your antibiotics as prescribed. Stand Alone Forms: Nursing Discharge Form Referrals: Brenda Greene MD [Primary Care Provider] - 08/31/18 11:20 am Activity:: No strenuous activity Equipment/Supplies:: No Equipment Needed Diet:: As Tolerated Discharge Orders Discharge Orders: Discharge Order (Routine); Ordered 08/23/18 Ordered By: Jean Marie Rouse Exam Narrative Exam Narrative: General: Patient appears comfortable, AAOX3, NAD HEENT: Right forehead hematoma noted, with echymosis overlying right eye. Neck supple. CV: Regular, nontachycardic, S1S2, No rubs, murmurs, or gallops. Pulmonary: Clear to auscultation bilaterally, no crackles, wheezing, or rhonchi Abdomen: + Bowel Sounds, soft, nontender, nondistended Vascular: No lower extremity edema Psych: Normal mood and affect. DS: Data Vitals/I&O Vitals and I&O: Vital Signs Temperature 36.4 C L 08/23/18 11:44 Temperature Source Tympanic 08/23/18 11:44 Pulse 70 08/23/18 11:44 Pulse Rhythm Regular 08/23/18 07:40 Pulse 83 08/19/18 08:00 Respiratory Rate 16 08/23/18 11:44 Respiratory Effort Non-Labored 08/23/18 07:40 Respiratory Depth Normal 08/23/18 07:40 Respiratory Pattern Normal 08/23/18 07:40 Blood Pressure 97/67 L 08/23/18 11:44 Blood Pressure Mean 64 08/19/18 06:46 Pulse Oximetry 95 08/23/18 11:44 Oxygen Delivery Method Room Air 08/23/18 11:44 Oxygen Flow Rate 0 08/23/18 11:44 Pain Level 5 08/23/18 08:10 Comment 08/21/18 08:15 Intake & Output 08/22/18 08/23/18 08/23/18 23:59 11:59 23:59 Intake Total 2317.083 / 3304.583 120 / 120 Output Total 1600 / 4675 Balance 717.083 / -1370.417 120 / 120 Weight 84.4 kg Intake: IV 2077.083 / 3064.583 Oral 240 / 240 120 / 120 Output: Urine 1600 / 4675 Other: Urine Color Yellow Yellow Urine Appearance Clear Clear Urine Odor Normal Voiding Methods Toilet Toilet Completed studies during hospitalization [Text1]: Exam(s) 08/19/[address]:CT chest PE CTA a CT:CT head wo SYMPTOMS/DIAGNOSIS: CANCER PATIENT WITH SYNCOPE, SHORTNESS OF BREATH, STRUCK HEAD ABOVE RIGHT EYE DURING FALL CT SCAN OF THE CHEST: CT angiography was performed with multi slice acquisition and multi planar and 3D reconstruction. CT scan of the chest was performed according to the pulmonary embolus protocol. There is no evidence of a pulmonary embolus. The thoracic aorta is intact. No evidence of dissection or aneurysm. The heart size is within normal limits. No significant pericardial effusion is seen. No evidence of right ventricular dysfunction is present. No significant thoracic adenopathy, pleural effusion or pneumothorax is identified. There is patient motion artifact present. No pulmonary infiltrates are seen. The tracheobronchial tree is unremarkable. There does appear to be apparent thickening of the wall of the esophagus involving the distal half. This may be due to underdistention but an inflammatory or infectious process cannot be excluded. There is a stone seen within the gallbladder. No biliary ductal dilatation is present. Degenerative changes are seen in the spine. IMPRESSION: 1. No evidence of a pulmonary embolus, thoracic aortic dissection or aneurysm. 2. Apparent thickening of the wall of the distal esophagus. This may be due to incomplete distention, but an inflammatory or infectious esophagitis cannot be excluded. 3. Cholelithiasis. No biliary ductal dilatation. CT HEAD: Noncontrast examination was performed. There are no priors for comparison. There is patient motion artifact, which limits evaluation. The artifact mainly involves the inferior aspect of the middle and posterior cranial fossa. There is normal jimenez-white matter differentiation. No acute intracranial hemorrhage, infarct, midline shift or mass effect is identified. The ventricles are intact. There is no evidence of a skull fracture. The visualized paranasal sinuses are clear. The mastoid air cells are well pneumatized. Exam(s) a RAD:XR chest 2V PA & lateral SYMPTOM/DIAGNOSIS: NEUTROPENIA, ELEVATED TEMP PA AND LATERAL CHEST: The heart is not enlarged. There is a right subclavian indwelling catheter, the tip of which lies in the superior vena cava. Lungs are generally clear except for some questionable minimal radiodensities in right lower lung field, please correlate clinically regarding the possibility of acute pneumonia. Labs on day of discharge: Labs from last 24 hours 08/23/18 08/23/18 06:46 06:46 WBC 2.42 L RBC 3.13 L Hgb 9.6 L Hct 28.0 L MCV 89.5 MCH 30.7 MCHC 34.3 RDW 14.9 H Plt Count 50 L MPV 11.1 H Immature Gran % 0.0 Neutrophils % 62.0 Lymphocytes % 19.0 Monocytes % 15.0 Eosinophils % 0.0 Basophils % 4.0 Absolute Neutrophils 1.50 Absolute Lymphocytes 0.46 L Absolute Monocytes 0.36 Absolute Eosinophils 0.00 Absolute Basophils 0.10 Differential Comment Manual differential RBC Morphology See below Anisocytosis 1+ Sodium 143 Potassium 3.8 Chloride 107 Carbon Dioxide 28.2 Anion Gap 7.8 BUN 5 L Creatinine 0.54 L Estimated GFR/1.73 m2 >= 60.00 Glucose 101 H Calcium 8.1 L Magnesium 1.7 L Rapid Influenza A & B Final 08/21/18-900 RESULT NEGATIVE FOR FLU A AND B ANTIGENS. [facility] Medical History Anemia (Chronic) Pneumonia (Acute) Reflux esophagitis (Acute) DVT prophylaxis (Acute) Discharge planning issues (Acute) Intractable nausea and vomiting (Acute) Dehydration (Acute) Traumatic hematoma of forehead (Acute) Closed head injury (Acute) Vasovagal syncope (Acute) Orthostatic hypotension (Acute) Breast cancer metastasized to axillary lymph node (Acute) Drug-induced leukopenia (Acute) Thrombocytopenia (Chronic) Breast cancer (Chronic) Port-A-Cath in place (Chronic) Surgical History S/P laparoscopic appendectomy (Inactive ~07/01/18) History of rotator cuff surgery (Inactive) H/O: section (Inactive ~1984) History of lumpectomy of left breast (Inactive ~2017) Family History Mother Ovarian cancer Father Alcohol abuse Lung cancer Sister Heart disease Sister Heart disease Maternal Grandfather Lung cancer Son Asthma Social History Smoking/Tobacco Use Status: Former Tobacco Use Quit Date: 05/24/84 Second Hand Exposure: Yes Alcohol Intake: current Alcohol Intake frequency: holidays/special occasions only Alcohol type: beer and hard liquor Drug use: Never Substance use type: does not use Duration: decline to answer Frequency: decline to answer Sheridan/Sikh: Scientologist Special sheridan needs: No Seatbelt use: always Helmet use: Yes Do you feel safe in your relationship?: Yes
[2018-08-23] MEDS: Heparin 500 UNITS/5 ML SYRINGE IVP (13:54)
--- NOTE | 2018-08-23 13:57 | PDOC.CMDIS ---
LACE Index Scoring Tool - Questions: Length of Stay (in days): 4 - 6 Acuity (Admit via E.D.?): Yes Comorbidities: Any Tumor E.D. Visits: 2 - Answers: Total Score: 11 Risk of Readmission: High Risk Care Management Discharge Reason for Hospitalization: Vasovagal syncope Discharge Plan: Nakul will return home with no additional services anticipated at this time. She will resume chemotherapy at [facility] oncology, follow up with her PCP and plan of care as prescribed. She will transport via private vehicle with her family. Patient/Family Education Needs: Review discharge instructions, discuss Ask Me Three.
--- NOTE | 2018-08-23 14:00 | CMDISCH_ITS ---
LACE Index Scoring Tool - Questions: Length of Stay (in days): 4 - 6 Acuity (Admit via E.D.?): Yes Comorbidities: Any Tumor E.D. Visits: 2 - Answers: Total Score: 11 Risk of Readmission: High Risk Care Management Discharge Reason for Hospitalization: Vasovagal syncope Discharge Plan: Nakul will return home with no additional services anticipated at this time. She will resume chemotherapy at [facility] oncology, follow up with her PCP and plan of care as prescribed. She will transport via private vehicle with her family. Patient/Family Education Needs: Review discharge instructions, discuss Ask Me Three.
--- NOTE | 2018-08-23 14:27 | CHAPLAIN ---
I had a short visit with Nakul this afternoon while she waits to be discharged. She is looking forward to being home and with her family.
== END 2018-08-23 15:06 | disposition home or self-care (01) | DRG 194 ==
LOC: ER 08:05 → MS 22:22
PROVIDERS: Internal Medicine; Admitting Provider Internal Medicine; Emergency Provider Emergency Medicine; PCP Family Medicine; Visit Provider Internal Medicine
DX: J18.9 Pneumonia, unspecified organism (principal); C77.3 Secondary and unspecified malignant neoplasm of axilla and upper limb lymph nodes; S09.90XA Unspecified injury of head, initial encounter; R55 Syncope and collapse; I95.1 Orthostatic hypotension; W18.30XA Fall on same level, unspecified, initial encounter; D70.1 Agranulocytosis secondary to cancer chemotherapy; R11.2 Nausea with vomiting, unspecified; K21.0 Gastro-esophageal reflux disease with esophagitis; T45.1X5A Adverse effect of antineoplastic and immunosuppressive drugs, initial encounter; D64.9 Anemia, unspecified; C50.912 Malignant neoplasm of unspecified site of left female breast; S00.83XA Contusion of other part of head, initial encounter; D69.6 Thrombocytopenia, unspecified; Z79.899 Other long term (current) drug therapy; Z95.828 Presence of other vascular implants and grafts
CPT/HCPCS: 36415; 36430; 71275; 80048; 80053; 86850; 86900; 86901; 86920; 86945; 87449; 93005; 96361; 96365; 96366; 96367; 99220; 99232; 99233; 99239; 99285; 70450; 71046; 81003; 81015; 83735; 84484; 85014; 85018; 85025; 93010; G0378; J1100; J1200; J3490; P9016

== ENCOUNTER 2018-09-15 02:19 | Outpatient (RCR) | payer OTHER, SELFPAY ==
[2018-08-25] MEDS: Normal Saline Flush 10 ML SYR IVP (07:20)
[2018-08-25 07:42] LABS: HCT 33.8 % (36.0-46.0); HGB 11.4 g/dL (12.0-15.5); Mean Corp. HGB Concentration 33.7 g/dL (32.0-36.0); Mean Corpuscular Hemoglobin 31.1 pg (27.0-33.0); Mean Corpuscular Volume 92.1 fL (80-95); Mean Platelet Volume 9.6 fL (8.0-11.0); Platelet Count 120 x1000/uL (130-400); RBC 3.67 m/cumm (4.00-5.20); RBC Distribution Width 15.5 % (11.7-14.6); White Blood Cell Count 4.51 k/cumm (4.4-10.8)
[2018-08-25 07:59] LABS: ALT 48 U/L (12-78); AST 50 U/L (15-37); Albumin 3.1 g/dL (3.4-5.0); Alkaline Phosphatase 81 U/L (46-116); Anion Gap 6.9 mmol/L (3-11); BUN 6 mg/dL (7-18); Bilirubin, Total 0.3 mg/dL (0.2-1.0); CO2 30.1 mmol/L (21.0-32.0); CREATININE 0.65 mg/dL (0.55-1.02); Calcium 8.7 mg/dL (8.5-10.1); Chloride 105 mmol/L (98-107); Glucose 137 mg/dL (70-100); Potassium 3.7 mmol/L (3.5-5.1); Sodium 142 mmol/L (136-145); Total Protein 6.3 g/dL (6.4-8.2)
[2018-08-25 08:03] LABS: Absolute Basophil Count 0.05 k/cumm (0.0-0.2); Absolute Lymphocyte Count 0.63 k/cumm (1.2-3.4); Absolute Monocyte Count 0.86 k/cumm (0.11-0.7); Absolute Neutrophil Count 2.98 k/cumm (1.2-6.7)
[2018-08-25 08:04] LABS: Anisocytosis 1+; Diff Comment Manual Differential
[2018-09-01] MEDS: Normal Saline Flush 10 ML SYR IVP (08:42)
[2018-09-01 08:48] LABS: Abs Immature Grans 0.02 k/cumm (0.0-0.09); Absolute Basophil Count 0.16 k/cumm (0.0-0.2); Absolute Eosinophil Count 0.04 k/cumm (0.0-0.7); Absolute Lymphocyte Count 0.64 k/cumm (1.2-3.4); Absolute Monocyte Count 0.75 k/cumm (0.11-0.7); Absolute Neutrophil Count 2.82 k/cumm (1.2-6.7); Basophils % 3.6; Eosinophils % 0.9; HGB 11.9 g/dL (12.0-15.5); Immature Grans % 0.5; Lymphocytes % 14.4; Mean Corp. HGB Concentration 33.1 g/dL (32.0-36.0); Mean Corpuscular Hemoglobin 31.5 pg (27.0-33.0); Mean Corpuscular Volume 95.2 fL (80-95); Mean Platelet Volume 8.9 fL (8.0-11.0); Monocytes % 16.9; Neutrophils % 63.7; Platelet Count 298 x1000/uL (130-400); RBC 3.78 m/cumm (4.00-5.20); White Blood Cell Count 4.43 k/cumm (4.4-10.8)
[2018-09-01 08:58] LABS: ALT 44 U/L (12-78); AST 34 U/L (15-37); Albumin 3.2 g/dL (3.4-5.0); Alkaline Phosphatase 68 U/L (46-116); Anion Gap 6.5 mmol/L (3-11); BUN 12 mg/dL (7-18); Bilirubin, Total 0.4 mg/dL (0.2-1.0); CO2 30.5 mmol/L (21.0-32.0); CREATININE 0.66 mg/dL (0.55-1.02); Calcium 8.6 mg/dL (8.5-10.1); Chloride 102 mmol/L (98-107); Glucose 133 mg/dL (70-100); Potassium 4.1 mmol/L (3.5-5.1); Sodium 139 mmol/L (136-145); Total Protein 6.9 g/dL (6.4-8.2)
[2018-09-08] MEDS: Normal Saline-STERILE FIELD 0.9% 10 ML SYR (08:25)
[2018-09-08 08:44] LABS: Abs Immature Grans 0.03 k/cumm (0.0-0.09); Absolute Basophil Count 0.11 k/cumm (0.0-0.2); Absolute Eosinophil Count 0.07 k/cumm (0.0-0.7); Absolute Lymphocyte Count 0.57 k/cumm (1.2-3.4); Absolute Monocyte Count 0.45 k/cumm (0.11-0.7); Absolute Neutrophil Count 2.56 k/cumm (1.2-6.7); Basophils % 2.9; Eosinophils % 1.8; HCT 33.3 % (36.0-46.0); HGB 10.8 g/dL (12.0-15.5); Immature Grans % 0.8; Mean Corp. HGB Concentration 32.4 g/dL (32.0-36.0); Mean Corpuscular Hemoglobin 30.9 pg (27.0-33.0); Mean Corpuscular Volume 95.1 fL (80-95); Mean Platelet Volume 9.2 fL (8.0-11.0); Monocytes % 11.9; Neutrophils % 67.6; Platelet Count 173 x1000/uL (130-400); RBC Distribution Width 16.4 % (11.7-14.6); White Blood Cell Count 3.79 k/cumm (4.4-10.8)
[2018-09-08 08:57] LABS: ALT 39 U/L (12-78); AST 29 U/L (15-37); Albumin 3.1 g/dL (3.4-5.0); Alkaline Phosphatase 70 U/L (46-116); BUN 17 mg/dL (7-18); Bilirubin, Total 0.4 mg/dL (0.2-1.0); CREATININE 0.68 mg/dL (0.55-1.02); Calcium 8.5 mg/dL (8.5-10.1); Chloride 103 mmol/L (98-107); Glucose 126 mg/dL (70-100); Sodium 138 mmol/L (136-145); Total Protein 6.6 g/dL (6.4-8.2)
[2018-09-15] MEDS: Normal Saline-STERILE FIELD 0.9% 10 ML SYR (07:45)
[2018-09-15 07:59] LABS: Abs Immature Grans 0.01 k/cumm (0.0-0.09); Absolute Basophil Count 0.09 k/cumm (0.0-0.2); Absolute Eosinophil Count 0.29 k/cumm (0.0-0.7); Absolute Lymphocyte Count 0.63 k/cumm (1.2-3.4); Absolute Monocyte Count 0.56 k/cumm (0.11-0.7); Absolute Neutrophil Count 2.63 k/cumm (1.2-6.7); Basophils % 2.1; Eosinophils % 6.9; HCT 31.1 % (36.0-46.0); HGB 10.5 g/dL (12.0-15.5); Immature Grans % 0.2; Mean Corp. HGB Concentration 33.8 g/dL (32.0-36.0); Mean Corpuscular Hemoglobin 31.8 pg (27.0-33.0); Mean Corpuscular Volume 94.2 fL (80-95); Mean Platelet Volume 8.7 fL (8.0-11.0); Monocytes % 13.3; Neutrophils % 62.5; Platelet Count 170 x1000/uL (130-400); RBC Distribution Width 16.7 % (11.7-14.6)
[2018-09-15 08:11] LABS: ALT 55 U/L (12-78); AST 41 U/L (15-37); Albumin 3.3 g/dL (3.4-5.0); Alkaline Phosphatase 74 U/L (46-116); Anion Gap 9.3 mmol/L (3-11); BUN 13 mg/dL (7-18); Bilirubin, Total 0.6 mg/dL (0.2-1.0); CO2 27.7 mmol/L (21.0-32.0); Calcium 8.8 mg/dL (8.5-10.1); Chloride 101 mmol/L (98-107); Glucose 124 mg/dL (70-100); Potassium 3.4 mmol/L (3.5-5.1); Sodium 138 mmol/L (136-145); Total Protein 6.8 g/dL (6.4-8.2)
== END 2018-09-20 23:59 | disposition home or self-care (01) ==
LOC: INF 02:19
PROVIDERS: PCP Family Medicine; Visit Provider Internal Medicine Hematology & Oncology
DX: C50.812 Malignant neoplasm of overlapping sites of left female breast (principal); Z17.0 Estrogen receptor positive status [ER+]; Z45.2 Encounter for adjustment and management of vascular access device
CPT/HCPCS: 36591; 80053; 87505; 85025; 87177; 87324; 87798

== ENCOUNTER 2018-09-15 07:35 | Outpatient (REF) | payer OTHER, SELFPAY ==
[2018-09-16 11:37] LABS: Specimen Description Feces
[2018-09-16 14:08] LABS: Result Positive
[2018-09-16 14:26] LABS: Campylobacter PCR SEE COMMENTS; Salmonella PCR SEE COMMENTS; Shiga Toxin PCR SEE COMMENTS; Shigella/Enteroinvasive Ecoli SEE COMMENTS
== END 2018-09-15 07:55 ==
LOC: LBN 07:35
PROVIDERS: PCP Family Medicine; Visit Provider Family Medicine
DX: R19.7 Diarrhea, unspecified (principal)
CPT/HCPCS: 87505; 87177; 87324; 87798

== ENCOUNTER 2018-10-20 01:51 | Outpatient (RCR) | payer OTHER, SELFPAY ==
[2018-09-29] MEDS: Normal Saline-STERILE FIELD 0.9% 10 ML SYR (08:20)
[2018-09-29 09:00] LABS: Absolute Basophil Count 0.09 k/cumm (0.0-0.2); Absolute Lymphocyte Count 0.81 k/cumm (1.2-3.4); Absolute Monocyte Count 0.38 k/cumm (0.11-0.7); Absolute Neutrophil Count 2.33 k/cumm (1.2-6.7); Basophils % 2.4; Eosinophils % 2.7; HCT 33.1 % (36.0-46.0); HGB 10.5 g/dL (12.0-15.5); Lymphocytes % 21.8; Mean Corp. HGB Concentration 31.7 g/dL (32.0-36.0); Mean Corpuscular Hemoglobin 31.6 pg (27.0-33.0); Mean Corpuscular Volume 99.7 fL (80-95); Mean Platelet Volume 9.4 fL (8.0-11.0); Monocytes % 10.2; Neutrophils % 62.9; Platelet Count 200 x1000/uL (130-400); RBC 3.32 m/cumm (4.00-5.20); RBC Distribution Width 17.5 % (11.7-14.6); White Blood Cell Count 3.71 k/cumm (4.4-10.8)
[2018-09-29 09:09] LABS: ALT 39 U/L (12-78); AST 34 U/L (15-37); Alkaline Phosphatase 62 U/L (46-116); Anion Gap 5.2 mmol/L (3-11); BUN 17 mg/dL (7-18); Bilirubin, Total 0.4 mg/dL (0.2-1.0); CO2 29.8 mmol/L (21.0-32.0); CREATININE 0.64 mg/dL (0.55-1.02); Calcium 8.7 mg/dL (8.5-10.1); Chloride 104 mmol/L (98-107); Glucose 115 mg/dL (70-100); Potassium 3.9 mmol/L (3.5-5.1); Sodium 139 mmol/L (136-145); Total Protein 6.5 g/dL (6.4-8.2)
[2018-10-06] MEDS: Normal Saline Flush 10 ML SYR IVP (08:35)
[2018-10-06 08:49] LABS: Abs Immature Grans 0.02 k/cumm (0.0-0.09); Absolute Basophil Count 0.06 k/cumm (0.0-0.2); Absolute Eosinophil Count 0.15 k/cumm (0.0-0.7); Absolute Lymphocyte Count 0.75 k/cumm (1.2-3.4); Absolute Monocyte Count 0.18 k/cumm (0.11-0.7); Eosinophils % 5.1; HCT 33.6 % (36.0-46.0); HGB 10.8 g/dL (12.0-15.5); Immature Grans % 0.7; Lymphocytes % 25.3; Mean Corp. HGB Concentration 32.1 g/dL (32.0-36.0); Mean Corpuscular Hemoglobin 32.2 pg (27.0-33.0); Mean Corpuscular Volume 100.3 fL (80-95); Mean Platelet Volume 9.4 fL (8.0-11.0); Monocytes % 6.1; Neutrophils % 60.8; Platelet Count 191 x1000/uL (130-400); RBC 3.35 m/cumm (4.00-5.20); White Blood Cell Count 2.96 k/cumm (4.4-10.8)
[2018-10-06 09:02] LABS: ALT 47 U/L (12-78); AST 38 U/L (15-37); Albumin 3.3 g/dL (3.4-5.0); Alkaline Phosphatase 68 U/L (46-116); BUN 22 mg/dL (7-18); Bilirubin, Total 0.5 mg/dL (0.2-1.0); CREATININE 0.67 mg/dL (0.55-1.02); Calcium 8.7 mg/dL (8.5-10.1); Chloride 103 mmol/L (98-107); Glucose 119 mg/dL (70-100); Sodium 140 mmol/L (136-145); Total Protein 6.9 g/dL (6.4-8.2)
[2018-10-13] MEDS: Normal Saline-STERILE FIELD 0.9% 10 ML SYR (08:20)
[2018-10-13 08:54] LABS: Abs Immature Grans 0.01 k/cumm (0.0-0.09); Absolute Basophil Count 0.05 k/cumm (0.0-0.2); Absolute Eosinophil Count 0.12 k/cumm (0.0-0.7); Absolute Lymphocyte Count 0.63 k/cumm (1.2-3.4); Absolute Monocyte Count 0.13 k/cumm (0.11-0.7); Absolute Neutrophil Count 1.49 k/cumm (1.2-6.7); Basophils % 2.1; Eosinophils % 4.9; HCT 30.4 % (36.0-46.0); HGB 9.9 g/dL (12.0-15.5); Immature Grans % 0.4; Lymphocytes % 25.9; Mean Corp. HGB Concentration 32.6 g/dL (32.0-36.0); Mean Corpuscular Volume 101.3 fL (80-95); Mean Platelet Volume 9.5 fL (8.0-11.0); Monocytes % 5.3; Neutrophils % 61.4; Platelet Count 178 x1000/uL (130-400); RBC Distribution Width 15.2 % (11.7-14.6); White Blood Cell Count 2.43 k/cumm (4.4-10.8)
[2018-10-13 09:04] LABS: ALT 34 U/L (12-78); AST 26 U/L (15-37); Albumin 3.2 g/dL (3.4-5.0); Alkaline Phosphatase 66 U/L (46-116); Anion Gap 7.9 mmol/L (3-11); BUN 19 mg/dL (7-18); Bilirubin, Total 0.3 mg/dL (0.2-1.0); CO2 26.1 mmol/L (21.0-32.0); CREATININE 0.73 mg/dL (0.55-1.02); Calcium 8.4 mg/dL (8.5-10.1); Chloride 105 mmol/L (98-107); Glucose 145 mg/dL (70-100); Sodium 139 mmol/L (136-145); Total Protein 6.5 g/dL (6.4-8.2)
[2018-10-13 09:10] LABS: Anisocytosis 1+; Diff Comment Diff Reviewed; Macrocytosis 1+; Microcytosis 1+
[2018-10-20 08:15] LABS: Absolute Basophil Count 0.05 k/cumm (0.0-0.2); Absolute Eosinophil Count 0.06 k/cumm (0.0-0.7); Absolute Lymphocyte Count 0.79 k/cumm (1.2-3.4); Absolute Monocyte Count 0.13 k/cumm (0.11-0.7); Absolute Neutrophil Count 1.23 k/cumm (1.2-6.7); Basophils % 2.2; Eosinophils % 2.7; HCT 29.7 % (36.0-46.0); HGB 9.8 g/dL (12.0-15.5); Mean Corpuscular Hemoglobin 33.4 pg (27.0-33.0); Mean Corpuscular Volume 101.4 fL (80-95); Mean Platelet Volume 8.7 fL (8.0-11.0); Monocytes % 5.8; Neutrophils % 54.3; Platelet Count 188 x1000/uL (130-400); RBC 2.93 m/cumm (4.00-5.20); RBC Distribution Width 14.9 % (11.7-14.6); White Blood Cell Count 2.26 k/cumm (4.4-10.8)
[2018-10-20] MEDS: Normal Saline-STERILE FIELD 0.9% 10 ML SYR (08:20)
[2018-10-20 08:30] LABS: ALT 36 U/L (12-78); AST 29 U/L (15-37); Albumin 3.1 g/dL (3.4-5.0); Alkaline Phosphatase 82 U/L (46-116); Anion Gap 6.6 mmol/L (3-11); Anisocytosis 1+; BUN 21 mg/dL (7-18); Basophilic Stippling Present; Bilirubin, Total 0.4 mg/dL (0.2-1.0); CO2 28.4 mmol/L (21.0-32.0); CREATININE 0.62 mg/dL (0.55-1.02); Calcium 8.4 mg/dL (8.5-10.1); Chloride 105 mmol/L (98-107); Diff Comment Agrees w/ Instrument; Glucose 117 mg/dL (70-100); Polychromasia Present; Potassium 3.9 mmol/L (3.5-5.1); Sodium 140 mmol/L (136-145); Total Protein 6.3 g/dL (6.4-8.2)
== END 2018-10-21 23:59 | disposition home or self-care (01) ==
LOC: INF 01:51
PROVIDERS: PCP Family Medicine; Visit Provider Internal Medicine Hematology & Oncology
DX: C50.812 Malignant neoplasm of overlapping sites of left female breast (principal); Z17.0 Estrogen receptor positive status [ER+]; Z45.2 Encounter for adjustment and management of vascular access device
CPT/HCPCS: 36591; 80053; 85025

== ENCOUNTER 2018-11-17 01:17 | Outpatient (RCR) | payer OTHER, SELFPAY ==
[2018-10-27] MEDS: Normal Saline-STERILE FIELD 0.9% 10 ML SYR (08:31)
[2018-10-27 08:39] LABS: Abs Immature Grans 0.01 k/cumm (0.0-0.09); Absolute Basophil Count 0.05 k/cumm (0.0-0.2); Absolute Lymphocyte Count 0.69 k/cumm (1.2-3.4); Absolute Monocyte Count 0.18 k/cumm (0.11-0.7); Absolute Neutrophil Count 1.24 k/cumm (1.2-6.7); Basophils % 2.2; Eosinophils % 4.4; HCT 30.4 % (36.0-46.0); HGB 9.9 g/dL (12.0-15.5); Immature Grans % 0.4; Lymphocytes % 30.4; Mean Corp. HGB Concentration 32.6 g/dL (32.0-36.0); Mean Corpuscular Hemoglobin 33.3 pg (27.0-33.0); Mean Corpuscular Volume 102.4 fL (80-95); Monocytes % 7.9; Platelet Count 200 x1000/uL (130-400); RBC 2.97 m/cumm (4.00-5.20); White Blood Cell Count 2.27 k/cumm (4.4-10.8)
[2018-10-27 08:52] LABS: ALT 36 U/L (12-78); AST 25 U/L (15-37); Albumin 3.2 g/dL (3.4-5.0); Alkaline Phosphatase 69 U/L (46-116); Anion Gap 7.1 mmol/L (3-11); BUN 15 mg/dL (7-18); Bilirubin, Total 0.3 mg/dL (0.2-1.0); CO2 28.9 mmol/L (21.0-32.0); CREATININE 0.58 mg/dL (0.55-1.02); Calcium 8.8 mg/dL (8.5-10.1); Chloride 104 mmol/L (98-107); Glucose 128 mg/dL (70-100); Sodium 140 mmol/L (136-145); Total Protein 6.5 g/dL (6.4-8.2)
[2018-10-27 09:00] LABS: Neutrophils % 54.7
[2018-10-27 09:01] LABS: Anisocytosis 1+; Diff Comment Diff Reviewed; Polychromasia Present
[2018-11-03] MEDS: Normal Saline-STERILE FIELD 0.9% 10 ML SYR (08:28)
[2018-11-03 08:40] LABS: Absolute Eosinophil Count 0.06 k/cumm (0.0-0.7); HCT 31.3 % (36.0-46.0); HGB 10.4 g/dL (12.0-15.5); Mean Corp. HGB Concentration 33.2 g/dL (32.0-36.0); Mean Corpuscular Volume 102.3 fL (80-95); Mean Platelet Volume 8.9 fL (8.0-11.0); Platelet Count 213 x1000/uL (130-400); RBC 3.06 m/cumm (4.00-5.20); RBC Distribution Width 14.4 % (11.7-14.6); White Blood Cell Count 2.12 k/cumm (4.4-10.8)
[2018-11-03 08:55] LABS: ALT 35 U/L (12-78); AST 28 U/L (15-37); Albumin 3.3 g/dL (3.4-5.0); Alkaline Phosphatase 68 U/L (46-116); Anion Gap 6.7 mmol/L (3-11); BUN 13 mg/dL (7-18); Bilirubin, Total 0.3 mg/dL (0.2-1.0); CO2 29.3 mmol/L (21.0-32.0); CREATININE 0.55 mg/dL (0.55-1.02); Calcium 8.8 mg/dL (8.5-10.1); Chloride 104 mmol/L (98-107); Glucose 125 mg/dL (70-100); Potassium 4.2 mmol/L (3.5-5.1); Sodium 140 mmol/L (136-145); Total Protein 6.7 g/dL (6.4-8.2)
[2018-11-03 09:09] LABS: Absolute Lymphocyte Count 0.64 k/cumm (1.2-3.4); Absolute Monocyte Count 0.32 k/cumm (0.11-0.7); Anisocytosis 1+; Diff Comment Manual Differential
[2018-11-03 09:10] LABS: Poikilocytes 1+; Polychromasia Present
[2018-11-10] MEDS: Normal Saline-STERILE FIELD 0.9% 10 ML SYR (08:31)
[2018-11-10 08:45] LABS: Abs Immature Grans 0.01 k/cumm (0.0-0.09); Absolute Basophil Count 0.05 k/cumm (0.0-0.2); Absolute Eosinophil Count 0.04 k/cumm (0.0-0.7); Absolute Monocyte Count 0.17 k/cumm (0.11-0.7); Absolute Neutrophil Count 1.09 k/cumm (1.2-6.7); Basophils % 2.4; Eosinophils % 1.9; HCT 32.2 % (36.0-46.0); HGB 10.6 g/dL (12.0-15.5); Immature Grans % 0.5; Mean Corp. HGB Concentration 32.9 g/dL (32.0-36.0); Mean Corpuscular Hemoglobin 33.4 pg (27.0-33.0); Mean Corpuscular Volume 101.6 fL (80-95); Mean Platelet Volume 9.2 fL (8.0-11.0); Monocytes % 8.3; Neutrophils % 52.9; Platelet Count 209 x1000/uL (130-400); RBC 3.17 m/cumm (4.00-5.20); RBC Distribution Width 14.4 % (11.7-14.6); White Blood Cell Count 2.06 k/cumm (4.4-10.8)
[2018-11-10 09:04] LABS: ALT 34 U/L (12-78); AST 26 U/L (15-37); Albumin 3.4 g/dL (3.4-5.0); Alkaline Phosphatase 61 U/L (46-116); Anion Gap 7.5 mmol/L (3-11); BUN 16 mg/dL (7-18); Bilirubin, Total 0.3 mg/dL (0.2-1.0); CO2 26.5 mmol/L (21.0-32.0); CREATININE 0.56 mg/dL (0.55-1.02); Calcium 8.6 mg/dL (8.5-10.1); Chloride 108 mmol/L (98-107); Glucose 108 mg/dL (70-100); Potassium 3.9 mmol/L (3.5-5.1); Sodium 142 mmol/L (136-145); Total Protein 6.6 g/dL (6.4-8.2)
[2018-11-10 09:14] LABS: Diff Comment Agrees w/ Instrument
[2018-11-17] MEDS: Normal Saline Flush 10 ML SYR IVP (07:55)
[2018-11-17 08:16] LABS: Absolute Basophil Count 0.07 k/cumm (0.0-0.2); Absolute Eosinophil Count 0.05 k/cumm (0.0-0.7); Absolute Monocyte Count 0.13 k/cumm (0.11-0.7); Absolute Neutrophil Count 0.73 k/cumm (1.2-6.7); Basophils % 4.4; Eosinophils % 3.2; HCT 31.4 % (36.0-46.0); HGB 10.3 g/dL (12.0-15.5); Mean Corp. HGB Concentration 32.8 g/dL (32.0-36.0); Mean Corpuscular Hemoglobin 33.2 pg (27.0-33.0); Mean Corpuscular Volume 101.3 fL (80-95); Mean Platelet Volume 9.2 fL (8.0-11.0); Monocytes % 8.2; Neutrophils % 46.2; Platelet Count 190 x1000/uL (130-400); RBC Distribution Width 14.4 % (11.7-14.6)
[2018-11-17 08:34] LABS: ALT 31 U/L (12-78); AST 25 U/L (15-37); Albumin 3.3 g/dL (3.4-5.0); Alkaline Phosphatase 62 U/L (46-116); BUN 18 mg/dL (7-18); Bilirubin, Total 0.3 mg/dL (0.2-1.0); CREATININE 0.62 mg/dL (0.55-1.02); Calcium 8.6 mg/dL (8.5-10.1); Chloride 108 mmol/L (98-107); Glucose 101 mg/dL (70-100); Potassium 3.6 mmol/L (3.5-5.1); Sodium 144 mmol/L (136-145); Total Protein 6.4 g/dL (6.4-8.2)
[2018-11-17 08:45] LABS: White Blood Cell Count 1.58 k/cumm (4.4-10.8)
[2018-11-17 08:46] LABS: Diff Comment Diff Reviewed
[2018-11-17 08:47] LABS: Polychromasia Present
== END 2018-11-20 23:59 | disposition home or self-care (01) ==
LOC: INF 01:17
PROVIDERS: PCP Family Medicine; Visit Provider Internal Medicine Hematology & Oncology
DX: C50.812 Malignant neoplasm of overlapping sites of left female breast (principal); Z17.0 Estrogen receptor positive status [ER+]; Z45.2 Encounter for adjustment and management of vascular access device
CPT/HCPCS: 36591; 80053; 85025

== ENCOUNTER 2018-12-08 01:28 | Outpatient (RCR) | payer OTHER, SELFPAY ==
[2018-11-25] MEDS: Normal Saline Flush 10 ML SYR IVP (11:25)
[2018-11-25 12:08] LABS: ALT 36 U/L (12-78); AST 28 U/L (15-37); Albumin 3.4 g/dL (3.4-5.0); Alkaline Phosphatase 68 U/L (46-116); Anion Gap 8.9 mmol/L (3-11); BUN 18 mg/dL (7-18); Bilirubin, Total 0.3 mg/dL (0.2-1.0); CO2 28.1 mmol/L (21.0-32.0); CREATININE 0.63 mg/dL (0.55-1.02); Calcium 8.9 mg/dL (8.5-10.1); Chloride 107 mmol/L (98-107); Glucose 118 mg/dL (70-100); Potassium 4.1 mmol/L (3.5-5.1); Sodium 144 mmol/L (136-145); Total Protein 6.7 g/dL (6.4-8.2)
[2018-11-25 12:15] LABS: Absolute Basophil Count 0.08 k/cumm (0.0-0.2); Absolute Eosinophil Count 0.03 k/cumm (0.0-0.7); Absolute Lymphocyte Count 0.77 k/cumm (1.2-3.4); Absolute Monocyte Count 0.44 k/cumm (0.11-0.7); Absolute Neutrophil Count 0.92 k/cumm (1.2-6.7); Basophils % 3.6; Eosinophils % 1.3; HCT 36.6 % (36.0-46.0); HGB 11.9 g/dL (12.0-15.5); Lymphocytes % 34.4; Mean Corp. HGB Concentration 32.5 g/dL (32.0-36.0); Mean Corpuscular Volume 101.4 fL (80-95); Mean Platelet Volume 9.5 fL (8.0-11.0); Monocytes % 19.6; Neutrophils % 41.1; Platelet Count 198 x1000/uL (130-400); RBC 3.61 m/cumm (4.00-5.20); RBC Distribution Width 14.7 % (11.7-14.6); White Blood Cell Count 2.24 k/cumm (4.4-10.8)
[2018-11-25 12:49] LABS: Diff Comment Diff Reviewed
[2018-11-25 12:50] LABS: Macrocytosis 1+
[2018-12-01] MEDS: Normal Saline-STERILE FIELD 0.9% 10 ML SYR (08:35)
[2018-12-01 08:44] LABS: Absolute Basophil Count 0.05 k/cumm (0.0-0.2); Absolute Eosinophil Count 0.05 k/cumm (0.0-0.7); Absolute Lymphocyte Count 0.81 k/cumm (1.2-3.4); Absolute Monocyte Count 0.13 k/cumm (0.11-0.7); Basophils % 2.2; Eosinophils % 2.2; HCT 35.7 % (36.0-46.0); HGB 11.7 g/dL (12.0-15.5); Lymphocytes % 36.2; Mean Corp. HGB Concentration 32.8 g/dL (32.0-36.0); Mean Corpuscular Hemoglobin 33.1 pg (27.0-33.0); Mean Corpuscular Volume 100.8 fL (80-95); Mean Platelet Volume 9.6 fL (8.0-11.0); Monocytes % 5.8; Neutrophils % 53.6; Platelet Count 161 x1000/uL (130-400); RBC 3.54 m/cumm (4.00-5.20); RBC Distribution Width 13.9 % (11.7-14.6); White Blood Cell Count 2.24 k/cumm (4.4-10.8)
[2018-12-01 09:08] LABS: ALT 25 U/L (12-78); AST 18 U/L (15-37); Albumin 3.4 g/dL (3.4-5.0); Alkaline Phosphatase 63 U/L (46-116); BUN 20 mg/dL (7-18); Bilirubin, Total 0.4 mg/dL (0.2-1.0); CREATININE 0.56 mg/dL (0.55-1.02); Calcium 8.6 mg/dL (8.5-10.1); Chloride 106 mmol/L (98-107); Glucose 113 mg/dL (70-100); Potassium 4.2 mmol/L (3.5-5.1); Sodium 140 mmol/L (136-145); Total Protein 6.6 g/dL (6.4-8.2)
[2018-12-08] MEDS: Normal Saline Flush 10 ML SYR IVP (10:46)
[2018-12-08 10:55] LABS: Abs Immature Grans 0.01 k/cumm (0.0-0.09); Absolute Basophil Count 0.03 k/cumm (0.0-0.2); Absolute Eosinophil Count 0.08 k/cumm (0.0-0.7); Absolute Lymphocyte Count 0.72 k/cumm (1.2-3.4); Absolute Monocyte Count 0.17 k/cumm (0.11-0.7); Absolute Neutrophil Count 1.33 k/cumm (1.2-6.7); Basophils % 1.3; Eosinophils % 3.4; HCT 33.8 % (36.0-46.0); HGB 11.1 g/dL (12.0-15.5); Immature Grans % 0.4; Lymphocytes % 30.8; Mean Corp. HGB Concentration 32.8 g/dL (32.0-36.0); Mean Corpuscular Volume 100.6 fL (80-95); Monocytes % 7.3; Neutrophils % 56.8; Platelet Count 186 x1000/uL (130-400); RBC 3.36 m/cumm (4.00-5.20); RBC Distribution Width 13.8 % (11.7-14.6); White Blood Cell Count 2.34 k/cumm (4.4-10.8)
[2018-12-08 11:19] LABS: ALT 37 U/L (12-78); AST 24 U/L (15-37); Albumin 1.8 g/dL (3.4-5.0); Alkaline Phosphatase 55 U/L (46-116); Anion Gap 7.2 mmol/L (3-11); BUN 14 mg/dL (7-18); Bilirubin, Total 0.3 mg/dL (0.2-1.0); CO2 27.8 mmol/L (21.0-32.0); CREATININE 0.47 mg/dL (0.55-1.02); Calcium 8.7 mg/dL (8.5-10.1); Chloride 106 mmol/L (98-107); Glucose 113 mg/dL (70-100); Potassium 4.1 mmol/L (3.5-5.1); Sodium 141 mmol/L (136-145); Total Protein 6.5 g/dL (6.4-8.2)
== END 2018-12-21 23:59 | disposition home or self-care (01) ==
LOC: INF 01:28
PROVIDERS: PCP Family Medicine; Visit Provider Internal Medicine Hematology & Oncology
DX: C50.812 Malignant neoplasm of overlapping sites of left female breast (principal); Z17.0 Estrogen receptor positive status [ER+]; Z45.2 Encounter for adjustment and management of vascular access device
CPT/HCPCS: 36591; 80053; 85025

== ENCOUNTER 2019-01-18 01:01 | Outpatient (CLI) | payer OTHER, SELFPAY ==
[2019-01-18] MEDS: Omnipaque 350 MG/ML 50 ML BTL IJ (09:59)
--- NOTE | 2019-01-18 11:39 | DI.CT_ITS ---
SYMPTOMS/DIAGNOSIS: 11/29/18 CT SIM FOR XRT PLAN FOR LT BREAST CA SHOWED NEW OPACITY IN RT LUNG, F/U FOR FURTHER EVALUATION, C50.212 CT SCAN OF THE CHEST, ABDOMEN AND PELVIS: CT scan of the chest, abdomen and pelvis was performed. Comparison 07/01/18. CT SCAN OF THE ABDOMEN AND PELVIS: The liver is normal in size. There is again seen a 2.7 x 2.9 cm hypodense mass in the caudate lobe of the liver. There is nodular peripheral enhancement which is isodense to the aorta. The finding is most suggestive of a hepatic hemangioma. This was present on the prior examination. There is a small cyst again seen in the posterior aspect of the right lobe of the liver. No other suspicious hepatic masses are seen. The portal, superior mesenteric and splenic veins are patent. There is a stone seen within the gallbladder. No biliary ductal dilatation is present. The pancreas is unremarkable. The spleen is unremarkable. The adrenal glands are unremarkable. The kidneys show normal and symmetric enhancement. No evidence of a solid renal mass or obstruction. The urinary bladder is intact. There is a 4.9 x 4.9 x 4.6 cm partially calcified mass in the uterus likely representing a uterine fibroid. Other uterine or endometrial mass can not be excluded. The reproductive organs are otherwise unremarkable. The abdominal aorta is of normal caliber. No significant abdominal or pelvic adenopathy, ascites or pneumoperitoneum is present. The bowel is unremarkable. No findings to suggest an acute appendicitis are present. No aggressive osseous lesions are present in the bones. IMPRESSION: 1. No definite evidence of abdominal or pelvic metastatic disease. 2. Stable peripherally enhancing hepatic mass most suggestive of a hepatic hemangioma. 3. Cholelithiasis. No evidence of biliary ductal dilatation. 4. Stable partially calcified uterine mass which may reflect a uterine fibroid. Other uterine masses or endometrial masses can not be excluded. CT SCAN OF THE CHEST: There are several hypodense lesions seen within the thyroid gland. The largest is seen in the right lobe and measures 1.0 x 0.7 cm. Nonemergent ultrasound may be obtained for further evaluation. Thoracic aorta is intact. The heart size is within normal limits. No significant pericardial effusion is seen. No significant thoracic adenopathy is appreciated. No pleural effusion or pneumothorax is identified. There is a linear opacity seen in the right lung base posteriorly. This may represent scarring or atelectasis. No noncalcified pulmonary nodules are seen. The tracheobronchial tree is unremarkable. No pneumothorax is identified. Degenerative changes are seen in the spine. No aggressive osseous lesion is appreciated. IMPRESSION: 1. Short linear area in the right lung base posteriorly. This may represent an area of scarring or atelectasis. Metastatic disease although not excluded is considered less likely. 2. No pulmonary nodules or significant thoracic adenopathy. 3. Hypodense lesions seen within the thyroid gland. These are nonspecific. Nonemergent thyroid ultrasound may be obtained for further evaluation.
[2019-01-18] MEDS: Omnipaque 350 MG/ML 100 ML BTL IV (11:45)
[2019-01-18] MEDS: Breeza Beverage 473 ML BTL PO (11:46)
== END 2019-01-18 01:21 ==
PROVIDERS: PCP Family Medicine; Visit Provider Radiology Radiation Oncology
DX: C50.212 Malignant neoplasm of upper-inner quadrant of left female breast (principal); D18.03 Hemangioma of intra-abdominal structures; D25.9 Leiomyoma of uterus, unspecified; K80.70 Calculus of gallbladder and bile duct without cholecystitis without obstruction; K80.20 Calculus of gallbladder without cholecystitis without obstruction; J98.4 Other disorders of lung; E07.89 Other specified disorders of thyroid
CPT/HCPCS: 74177; 71260; J3490; Q9967

== ENCOUNTER 2019-01-18 02:27 | Outpatient (RCR) | payer OTHER, SELFPAY ==
[2019-01-18 09:18] LABS: Absolute Basophil Count 0.02 k/cumm (0.0-0.2); Absolute Eosinophil Count 0.04 k/cumm (0.0-0.7); Absolute Lymphocyte Count 0.64 k/cumm (1.2-3.4); Absolute Monocyte Count 0.27 k/cumm (0.11-0.7); Basophils % 0.7; Eosinophils % 1.5; HCT 35.2 % (36.0-46.0); HGB 11.8 g/dL (12.0-15.5); Mean Corp. HGB Concentration 33.5 g/dL (32.0-36.0); Mean Corpuscular Hemoglobin 33.4 pg (27.0-33.0); Mean Corpuscular Volume 99.7 fL (80-95); Mean Platelet Volume 9.2 fL (8.0-11.0); Monocytes % 10.1; Neutrophils % 63.7; Platelet Count 158 x1000/uL (130-400); RBC 3.53 m/cumm (4.00-5.20); RBC Distribution Width 12.8 % (11.7-14.6); White Blood Cell Count 2.67 k/cumm (4.4-10.8)
[2019-01-18] MEDS: Normal Saline-STERILE FIELD 0.9% 10 ML SYR (09:23)
[2019-01-18] MEDS: Heparin 500 UNITS/5 ML SYRINGE IV (09:23)
[2019-01-18 09:31] LABS: ALT 30 U/L (14-59); AST 24 U/L (15-37); Albumin 3.3 g/dL (3.4-5.0); Alkaline Phosphatase 58 U/L (46-116); Anion Gap 5.9 mmol/L (3-11); BUN 18 mg/dL (7-18); Bilirubin, Total 0.5 mg/dL (0.2-1.0); CO2 29.1 mmol/L (21.0-32.0); CREATININE 0.62 mg/dL (0.55-1.02); Calcium 8.5 mg/dL (8.5-10.1); Chloride 108 mmol/L (98-107); Glucose 109 mg/dL (70-100); Potassium 3.7 mmol/L (3.5-5.1); Sodium 143 mmol/L (136-145); Total Protein 6.4 g/dL (6.4-8.2)
== END 2019-01-21 23:59 | disposition home or self-care (01) ==
LOC: INF 02:27
PROVIDERS: PCP Family Medicine; Visit Provider Internal Medicine Hematology & Oncology
DX: C50.812 Malignant neoplasm of overlapping sites of left female breast (principal); Z17.0 Estrogen receptor positive status [ER+]; Z45.2 Encounter for adjustment and management of vascular access device
CPT/HCPCS: 36591; 80053; 85025

== ENCOUNTER 2019-01-26 03:49 | Outpatient (CLI) | payer OTHER, SELFPAY ==
--- NOTE | 2019-01-26 09:20 | DI.US_ITS ---
SYMPTOM/DIAGNOSIS: MULTIPLE THYROID NODULES E04.2 THYROID ULTRASOUND: 01/26 Thyroid ultrasound was performed according to the usual protocol. Right thyroid lobe measures 58 x 19 xz 23 mm and left lobe measures 52 x 18 x18 mm with a 3 mm thick isthmus. There are innumerable nodules and diffuse heterogeneity of the thyroid gland. The findings are consistent with multinodular goiter. The largest nodule is an approximately 13 mm in greatest diameter mixed echogenicity nodule of the lower pole of the right thyroid lobe which shows no significant internal vascular flow. CONCLUSION: Findings consistent with multinodular goiter. Follow up examination may be obtained in 6-12 months to re-evaluate a 13 mm right lobe lower pole thyroid nodule.
== END 2019-01-26 04:09 ==
PROVIDERS: PCP Family Medicine; Visit Provider Radiology Radiation Oncology
DX: E04.2 Nontoxic multinodular goiter (principal)
CPT/HCPCS: 76536

== ENCOUNTER 2019-02-23 03:51 | Outpatient (RCR) | payer OTHER, SELFPAY ==
[2019-02-23] MEDS: Normal Saline-STERILE FIELD 0.9% 10 ML SYR (12:18)
[2019-02-23] MEDS: Heparin 500 UNITS/5 ML SYRINGE IV (12:18)
[2019-02-23 12:33] LABS: Abs Immature Grans 0.01 k/cumm (0.0-0.09); Absolute Basophil Count 0.01 k/cumm (0.0-0.2); Absolute Eosinophil Count 0.03 k/cumm (0.0-0.7); Absolute Lymphocyte Count 0.67 k/cumm (1.2-3.4); Absolute Monocyte Count 0.29 k/cumm (0.11-0.7); Absolute Neutrophil Count 1.96 k/cumm (1.2-6.7); Basophils % 0.3; HCT 37.6 % (36.0-46.0); HGB 12.5 g/dL (12.0-15.5); Immature Grans % 0.3; Lymphocytes % 22.6; Mean Corp. HGB Concentration 33.2 g/dL (32.0-36.0); Mean Corpuscular Hemoglobin 32.5 pg (27.0-33.0); Mean Corpuscular Volume 97.7 fL (80-95); Mean Platelet Volume 8.8 fL (8.0-11.0); Monocytes % 9.8; Platelet Count 167 x1000/uL (130-400); RBC 3.85 m/cumm (4.00-5.20); RBC Distribution Width 12.7 % (11.7-14.6); White Blood Cell Count 2.97 k/cumm (4.4-10.8)
[2019-02-23 12:45] LABS: ALT 25 U/L (14-59); AST 21 U/L (15-37); Albumin 3.4 g/dL (3.4-5.0); Alkaline Phosphatase 73 U/L (46-116); Anion Gap 6.1 mmol/L (3-11); BUN 16 mg/dL (7-18); Bilirubin, Total 0.4 mg/dL (0.2-1.0); CO2 28.9 mmol/L (21.0-32.0); CREATININE 0.62 mg/dL (0.55-1.02); Calcium 8.7 mg/dL (8.5-10.1); Chloride 108 mmol/L (98-107); Glucose 111 mg/dL (70-100); Sodium 143 mmol/L (136-145); Total Protein 6.9 g/dL (6.4-8.2)
== END 2019-03-23 23:59 | disposition home or self-care (01) ==
LOC: INF 03:51
PROVIDERS: PCP Family Medicine; Visit Provider Internal Medicine Hematology & Oncology
DX: C50.812 Malignant neoplasm of overlapping sites of left female breast (principal); Z17.0 Estrogen receptor positive status [ER+]; Z45.2 Encounter for adjustment and management of vascular access device
CPT/HCPCS: 36415; 36591; 80053; 96523; 85025

== ENCOUNTER 2019-03-02 09:44 | Outpatient (CLI) | payer OTHER, SELFPAY ==
[2019-03-02 10:41] LABS: HCT 38.7 % (36.0-46.0); HGB 12.8 g/dL (12.0-15.5); Mean Corp. HGB Concentration 33.1 g/dL (32.0-36.0); Mean Corpuscular Volume 96.8 fL (80-95); Mean Platelet Volume 9.4 fL (8.0-11.0); Platelet Count 169 x1000/uL (130-400); RBC Distribution Width 12.5 % (11.7-14.6); White Blood Cell Count 3.44 k/cumm (4.4-10.8)
[2019-03-02 11:10] LABS: Calculated LDL 155 mg/dL; Cholesterol 239 mg/dL (50-200); HDL Cholesterol 73 mg/dL (40-60); Triglyceride 57 mg/dL (30-150)
[2019-03-02 11:23] LABS: Vitamin D 25 Total 22.2 ng/ml (30-100)
== END 2019-03-02 10:04 ==
PROVIDERS: PCP Family Medicine; Visit Provider Family Medicine
DX: D64.9 Anemia, unspecified (principal); E04.1 Nontoxic single thyroid nodule; E55.9 Vitamin D deficiency, unspecified; Z13.220 Encounter for screening for lipoid disorders
CPT/HCPCS: 36415; 80061; 82306; 85027; 84443

== ENCOUNTER 2019-04-18 13:24 | Outpatient (REF) | payer OTHER, SELFPAY ==
--- NOTE | 2019-04-18 11:00 | PAPFT_PTH ---
PATIENT: Nakul Joseph LOC: [facility] U#:[id number] AGE/SX: 58/F ROOM: RE04/18/[address]: Brenda Greene MD : 1960 BED: DIS: 04/18/2019 SPEC #: [id number] RECD: 04/18/19 18:50 STATUS: DARSHANA MONTALVO #: [id number] DEXTER: 04/18/19 11:[address]: Brenda Greene DEPT: [facility] Cytology RECD BY: Genesis Hall Tissues: 1 - CX/ENDOCX FOR PAP SMEARS Procedures: PAP THIN PREP/UVM Screening HPV DNA PROBE Comments: [id number]
== END 2019-04-18 13:44 ==
LOC: LBN 13:24
PROVIDERS: PCP Family Medicine; Visit Provider Family Medicine
DX: Z12.4 Encounter for screening for malignant neoplasm of cervix (principal); Z11.51 Encounter for screening for human papillomavirus (HPV)
CPT/HCPCS: 88142; 87624

== ENCOUNTER 2019-04-25 01:10 | Outpatient (CLI) | payer OTHER, SELFPAY ==
[2019-04-25 08:31] LABS: Absolute Basophil Count 0.02 k/cumm (0.0-0.2); Absolute Eosinophil Count 0.07 k/cumm (0.0-0.7); Absolute Lymphocyte Count 1.25 k/cumm (1.2-3.4); Absolute Monocyte Count 0.42 k/cumm (0.11-0.7); Absolute Neutrophil Count 2.47 k/cumm (1.2-6.7); Basophils % 0.5; Eosinophils % 1.7; HCT 36.3 % (36.0-46.0); HGB 12.2 g/dL (12.0-15.5); Lymphocytes % 29.6; Mean Corp. HGB Concentration 33.6 g/dL (32.0-36.0); Mean Corpuscular Hemoglobin 31.9 pg (27.0-33.0); Mean Platelet Volume 8.7 fL (8.0-11.0); Monocytes % 9.9; Neutrophils % 58.3; Platelet Count 159 x1000/uL (130-400); RBC 3.82 m/cumm (4.00-5.20); RBC Distribution Width 12.8 % (11.7-14.6); White Blood Cell Count 4.23 k/cumm (4.4-10.8)
--- NOTE | 2019-04-25 08:40 | DI.MAMMO_ITS ---
EXAM: MG MAMMO SCREENING 60 MIN DUR CLINICAL HISTORY: SCREENING, PERSONAL H/O BREAST CA AND RADIATION, BASELINE POST TREATMENT,FAMILY H/O BREAST CA,C50.212 , YEARLY TECHNIQUE: Bilateral full field digital CC and MLO mammographic images were obtained with 3D tomosyn thesis and utilizing computer aided detection (CAD). COMPARISON: Available for comparison. FINDINGS: Masses/Architectural Distortion: No suspicious masses are seen. Microcalcifications: No suspicious pleomorphic-type are seen. Skin Thickening/Nipple Retraction: None. There thickening of the skin of the left breast most consist ent with post radiation changes. IMPRESSION: 1. No suspicious mass or suspicious microcalcifications are identified. 2. Unless there is more urgent need, screening mammography is recommended, as per [employer] guidelines. BI-RADS Cat 2 - Benign Findings Breast Density - Category C - Heterogeneously dense The mammogram demonstrates the patient's breast tissue is dense. Dense breast tissue is very common a nd is not abnormal but dense breast tissue can make it harder to find cancer on a mammogram. Also, de nse breast tissue may increase their breast cancer risk. This information about the result of the [facility] mogram report was provided to the patient to raise their awareness. Use this report when you speak wi th the patient about their risks for breast cancer, which includes their family history. At that time , you may recommend for more screening tests (Ultrasound or MRI) as they might be useful based on the ir risk. A negative radiographic report should not delay biopsy if a dominant or clinically suspicious mass is present. Up to ten percent of cancers are not identified on mammography. A negative report may reinforce clinical impression. Adenosis and dense breasts may obscure an underlying neoplasm. False positive reports average 6 to 10%. Patient will receive a letter notifying them of these results.
[2019-04-25 08:43] LABS: ALT 31 U/L (14-59); AST 23 U/L (15-37); Albumin 3.6 g/dL (3.4-5.0); Alkaline Phosphatase 64 U/L (46-116); Anion Gap 9.5 mmol/L (3-11); BUN 26 mg/dL (7-18); Bilirubin, Total 0.5 mg/dL (0.2-1.0); CO2 28.5 mmol/L (21.0-32.0); CREATININE 0.62 mg/dL (0.55-1.02); Calcium 8.9 mg/dL (8.5-10.1); Chloride 105 mmol/L (98-107); Glucose 107 mg/dL (74-106); Potassium 3.5 mmol/L (3.5-5.1); Sodium 143 mmol/L (136-145); Total Protein 6.9 g/dL (6.4-8.2)
[2019-04-25] MEDS: Omnipaque 350 MG/ML 100 ML BTL IJ (09:13)
[2019-04-25] MEDS: Normal Saline Flush 10 ML SYR IVP (09:14)
--- NOTE | 2019-04-25 09:15 | DI.CT_ITS ---
EXAM: CT CHEST/ABD/PEL W CLINICAL HISTORY: H/O BREAST CA,C50.212,OPACITY ON XR,R91.8,HEPATICHEMANGIOMA,D18.03,F/U UTERINE AND LIVER MASSES TECHNIQUE: Imaging Protocol: Axial computed tomography images with coronal and sagittal reformatted images were created and reviewed CONTRAST MATERIAL: Intravenous: Omnipaque 350 Contrast volume:100 mL contrast route:IV - Oral: Yes COMPARISON: CT CHEST/ABD/PEL W from 01/18/2019 FINDINGS: CHEST: Tracheobronchial tree: Patent where visualized. Mediastinum and Chiksi: No dominant adenopathy or fluid collection. Pulmonary parenchyma: No consolidation or dominant measurable mass. No architectural distortion. Pleura: No effusion or pneumothorax. Lymph nodes: Within normal limits. Aorta: Thoracic portion non-dilated. Heart: No cardiomegaly or pericardial effusion. Thyroid: Stable thyroid nodules. Bones: Age appropriate degenerative changes are seen in the spine. ABDOMEN: Liver: There is a stable, peripherally enhancing, hypodense mass in the caudate lobe of the liver. T he finding is most suggestive of a hepatic hemangioma. There is also seen a tiny hypodense lesion at the posterior aspect of the right lobe of the liver. It is too small for further characterization b ut likely reflects a small cyst. No suspicious hepatic masses are seen. The portal, superior mesente aisha and splenic veins are patent. Gallbladder and biliary tract: Cholelithiasis. No biliary ductal dilatation. Pancreas: Normal density, no abnormal calcifications or inflammatory process. Spleen: Normal. Kidneys: Normal size, contour and axis. No radiodense stones or obstructive uropathy. No masses seen. Adrenal glands: No masses seen. Aorta: Abdominal portion non-dilated. Lymph nodes: Within normal limits. PELVIS: Bladder: Symmetric distention, no gross wall thickening. Bowel: No obstruction or bowel wall thickening. Peritoneal cavity: No ascites, collection or mesenteric inflammatory response. Bones: Within normal limits given the patient's age. Reproductive organs: Partially calcified mass in the uterus likely reflecting a degenerating uterine fibroid. IMPRESSION: 1. No evidence of abdominal or pelvic metastatic disease. 2. Stable hepatic mass most suggestive of hepatic hemangioma. 3. Cholelithiasis. No biliary ductal dilatation. 4. No evidence of thoracic metastatic disease. DATA REPOSITORY: All CT scans at this facility are submitted to the National Radiology Data Registry (NRDR) Dose Index Registry (DIR) with the [employer] (ACR). RADIATION OPTIMIZATION: All CT scans at this facility use at least one of these dose optimization te chniques: automated exposure control; mA and/or kV adjustment per patient size (includes targeted exa ms where dose is matched to clinical indication); or iterative reconstruction.
== END 2019-04-25 01:30 ==
PROVIDERS: PCP Family Medicine; Visit Provider Radiology Radiation Oncology
DX: C50.812 Malignant neoplasm of overlapping sites of left female breast (principal); Z17.0 Estrogen receptor positive status [ER+]; Z92.3 Personal history of irradiation; Z80.3 Family history of malignant neoplasm of breast; R91.8 Other nonspecific abnormal finding of lung field; D18.03 Hemangioma of intra-abdominal structures; K80.20 Calculus of gallbladder without cholecystitis without obstruction
CPT/HCPCS: 74177; 77063; 77067; 80053; 71260; 85025; J3490

== ENCOUNTER 2019-04-25 01:26 | Outpatient (RCR) | payer OTHER, SELFPAY | END 2019-05-23 23:59 | disposition home or self-care (01) | LOC: INF 01:26 | PROVIDERS: PCP Family Medicine; Visit Provider Internal Medicine Hematology & Oncology | DX: R69 Illness, unspecified (principal) ==

== ENCOUNTER 2019-06-15 08:08 | Day surgery (SDC) | payer OTHER, SELFPAY ==
[2019-06-15 08:45] VITALS: BP 125/69; PULSE 82; RESP 16; TEMP 36.6; O2SAT 99
[2019-06-15] MEDS: Lactated Ringers 1,000 ML 100 ML IV (08:56)
--- NOTE | 2019-06-15 09:45 | BOWEL_PTH ---
PATIENT: Nakul Joseph LOC: [facility] U#:[id number] AGE/SX: 59/F ROOM: RE06/15/[address]: Nahed Jackson : 1960 BED: DIS: 06/15/2019 SPEC #: [id number] RECD: 06/15/19 12:28 STATUS: DARSHANA RERadha #: [id number] DEXTER: 06/15/19 09:[address]: Nahed Jackson DEPT: Surgical Specimen RECD BY: Genesis Hall ENTERED: 06/15/19 12:29 SP TYPE: Bowel OTHR DR: Brenda Greene MD Tissues: 1 - BIOPSY BOWEL Procedures: GROSS AND MICRO LEVEL 4 Comments: [id number]
--- NOTE | 2019-06-15 09:59 | W.COLOREPORT ---
Date of service: 06/15/19 Time of Service: 09:59 Colonoscopy Report Date of procedure: 06/15/19 Pre-op diagnosis general: CRC screen/Hx of bresat Ca Post-op diagnosis procedure note: other (sm polyp 80 cm/ R colon ) Procedure: CE w/ polyp removal- hot Surgeon: Nahed Jacskon Anesthesia proc note operative: GETA Estimated blood loss (mL): 1 Pathology: other Complications: None Disposition: same day Prep: Miralax/Dulcolax Findings: 12 Procedure Description: After informed consent was obtained the patient was taken to the procedure room and placed in a left decubitous position. Monitors were applied and a time out was done. The patients name, date of , procedure, allergies to medications and metal in their body was reviewed. The patient was then sedated. Once sedated and comfortable a rectal exam was done. External exam was normal. Internal exam revealed a normal sphincter tone and no palpable masses. The scope was then introduced and retrofelexed. No internal hemorrhoids were identified. The scope was then advanced to the cecum mild difficulty- the colon is very floppy and has poor tone. The TI and appendiceal orifice were identified. The prep was good. The scope was then slowly retracted over 12 minutes back into the rectum. Polyps were removed at 80- hot forcept. No bleeding is noted and specimen is retrieved. It was a flat polyp and looks like ulcerated adenoma there were no AVMs or diverticula present. The left colon was nl. The scope was removed and the patient was woken up and taken back to Same day surgery in stable condition. The patient tolerated the procedure well and there were no immediate complications. Follow up: The patient should follow up in 5-10 yrs - path pd, years unless they develop changes in bowel habits or other new gastrointestinal complaints.
--- NOTE | 2019-06-15 10:02 | PDOC.DSDIS_ITS ---
Discharge Plan Disposition Patient Disposition: HOME Condition: Good Discharge Details Reason For Visit: colon scope Attending Provider: Nahde Jackson Primary Care Provider: Brenda Greene Home Meds and New Rx's Prescriptions: Continued acetaminophen [Tylenol] 325 mg tablet 650 mg PO Q6H PRNRF: 0 ibuprofen 200 mg tablet 200 mg PO QID PRNRF: 0 letrozole 2.5 mg tablet 2.5 mg PO HS RF: 0 Daily Probiotic (S. boulardii) 250 mg capsule 250 mg PO BID RF: 0 calcium carbonate-vitamin D3 [Calcium 600 with Vitamin D3] 600 mg(1,500mg) - 500 unit capsule 1 cap PO DAILY RF: 0 Discontinued polyethylene glycol 3350 17 gram/dose powder 238 g PO ONCE Qty: 238 RF: 0 bisacodyl [Dulcolax (bisacodyl)] 5 mg tablet,delayed release (DR/EC) 5 mg PO ONCE Qty: 4 RF: 0 Discharge Instructions Additional Instructions: Findings:Sm polyp (which was removed) otherwise nl Follow up: 5-10 yrs path pd. Will send a letter w/ pathology results in 2-3 wks and when to repeat scope. Please call if you develop: fevers >101.5 Nausea or Vomiting Abdominal pain that is not transient DAY SURGERY UNIT POST COLONOSCOPY INSTRUCTIONS 1. Because there will be medication in your system for the next 24 hours, you may feel a little sleepy. Your coordination will be affected. Therefore: a. Do not drive or operate dangerous equipment for 24 hours. b. Do not drink alcohol beverages for 24 hours (not even beer). c. Plan to go home and rest for the day. 2. Generally there are no restrictions on your activity after a day or so has gone by, but you may feel a bit fatigued for a few days. 3 After you arrive home you may have a light meal and return to a normal diet as you can tolerate it without feeling sick to your stomach. 4. After surgery, you may feel pain or discomfort. This should be only transient, but if it persists please contact your doctor. 5. If there are any questions regarding the findings of your procedure, please feel free to contact your doctor. 6. If you are unable to contact your doctor with a problem, contact the hospital at [phone]. 7. Continue all your regular medications unless directed otherwise. I understand the above instructions and have no questions. Signature of Patient or Responsible Adult Escort Date/Time Name of Responsible Adult Escort Signature of Nurse Date/Time Activity:: No strenuous activity or heavy lifting x24 hours Diet:: Small light meals x24 hours small light meals x24 hours Discharge Orders Discharge Orders: Discharge Order (Routine); Ordered 06/15/19 Ordered By: Nahed Jackson
[2019-06-15 10:21] VITALS: BP 120/63; PULSE 74; RESP 16; TEMP 36; O2SAT 100
== END 2019-06-15 10:42 | disposition home or self-care (01) ==
PROVIDERS: PCP Family Medicine; Visit Provider Surgery
PROC: 0DJD8ZZ Inspection of Lower Intestinal Tract, Via Natural or Artificial Opening Endoscopic (ICD-10-PCS; CPT 45378; principal; 2019-06-15 09:15)
DX: Z12.11 Encounter for screening for malignant neoplasm of colon (principal); K63.5 Polyp of colon; K63.89 Other specified diseases of intestine; Z85.3 Personal history of malignant neoplasm of breast; K21.9 Gastro-esophageal reflux disease without esophagitis
CPT/HCPCS: 45384; 88305; J2250; J3010

== ENCOUNTER 2019-07-27 11:52 | Outpatient (CLI) | payer OTHER, SELFPAY ==
[2019-07-27 12:06] LABS: Abs Immature Grans 0.01 k/cumm (0.0-0.09); Absolute Basophil Count 0.02 k/cumm (0.0-0.2); Absolute Eosinophil Count 0.06 k/cumm (0.0-0.7); Absolute Lymphocyte Count 1.34 k/cumm (1.2-3.4); Absolute Monocyte Count 0.38 k/cumm (0.11-0.7); Absolute Neutrophil Count 2.16 k/cumm (1.2-6.7); Basophils % 0.5; Eosinophils % 1.5; HCT 39.3 % (36.0-46.0); HGB 13.2 g/dL (12.0-15.5); Immature Grans % 0.3 %; Lymphocytes % 33.8; Mean Corp. HGB Concentration 33.6 g/dL (32.0-36.0); Mean Corpuscular Hemoglobin 32.5 pg (27.0-33.0); Mean Corpuscular Volume 96.8 fL (80-95); Mean Platelet Volume 8.5 fL (8.0-11.0); Monocytes % 9.6; Neutrophils % 54.3; Platelet Count 177 x1000/uL (130-400); RBC 4.06 m/cumm (4.00-5.20); RBC Distribution Width 12.8 % (11.7-14.6); White Blood Cell Count 3.97 k/cumm (4.4-10.8)
[2019-07-27 12:20] LABS: ALT 23 U/L (14-59); AST 21 U/L (15-37); Albumin 3.6 g/dL (3.4-5.0); Alkaline Phosphatase 66 U/L (46-116); Anion Gap 6.9 mmol/L (3-11); BUN 23 mg/dL (7-18); Bilirubin, Total 0.4 mg/dL (0.2-1.0); CO2 31.1 mmol/L (21.0-32.0); CREATININE 0.62 mg/dL (0.55-1.02); Calcium 8.7 mg/dL (8.5-10.1); Chloride 105 mmol/L (98-107); Glucose 103 mg/dL (74-106); Sodium 143 mmol/L (136-145); Total Protein 6.9 g/dL (6.4-8.2)
== END 2019-07-27 12:12 ==
PROVIDERS: PCP Family Medicine; Visit Provider Internal Medicine Hematology & Oncology
DX: C50.812 Malignant neoplasm of overlapping sites of left female breast (principal); Z17.0 Estrogen receptor positive status [ER+]
CPT/HCPCS: 36415; 80053; 85025

== ENCOUNTER 2019-11-02 01:21 | Outpatient (CLI) | payer OTHER, SELFPAY ==
--- NOTE | 2019-11-02 15:10 | DI.MAMMO_ITS ---
EXAM: MG MAMMO SCREENING 60 MIN DUR CLINICAL HISTORY: breast cancer screening,S/P LT LUMPECTOMY, CHEMO, RADIATION,Z85,3. COMPARISON: MG,US Digital Tomosynthesis Diagnostic Mammogram Bilateral from 03/11/2018 MG DIGITAL DIAGNOSTIC MAMMOGRAM LEFT POST ULTRASOUND BIOPSY from 03/23/2018 MR MRI Breast Bilateral with and without Contrast from 03/29/2018 MG MG MAMMO SCREENING 60 MIN DUR from 04/25/2019 TECHNIQUE: Craniocaudal and mediolateral oblique Full Field Digital Mammography views of the both br easts with Computer Aided Diagnosis followed by Tomosynthesis additional spot compression CC view wit h tomography of the right breast. FINDINGS: Mammography/Tomosynthesis: Masses/Architectural Distortion: None seen. Microcalcifications: No suspicious pleomorphic-type are seen. Skin Thickening/Nipple Retraction: None. IMPRESSION: 1. No evidence of malignancy is noted. 2. Unless there is more urgent need, follow-up screening mammography is recommended, as per [employer] [employer] guidelines. BI-RADS Category 1 - Negative Breast Density - Category C - Heterogeneously dense The mammogram demonstrates the patient's breast tissue is dense. Dense breast tissue is very common a nd is not abnormal but dense breast tissue can make it harder to find cancer on a mammogram. Also, de nse breast tissue may increase their breast cancer risk. This [facility] was provided to the patient to raise their awareness. Use this report when you speak wi th the patient about their risks for breast cancer, which includes their family history. At that time , you may recommend for more screening tests (Ultrasound or MRI) as they might be useful based on the ir risk. A negative radiographic report should not delay biopsy if a dominant or clinically suspicious mass is present. Up to ten percent of cancers are not identified on mammography. A negative report may reinforce clinical impression. Adenosis and dense breasts may obscure an underlying neoplasm. False positive reports average 6 to 10%. Patient will receive a letter notifying them of these results.
== END 2019-11-02 01:41 ==
PROVIDERS: PCP Family Medicine; Visit Provider Family Medicine
DX: Z12.31 Encounter for screening mammogram for malignant neoplasm of breast (principal); Z85.3 Personal history of malignant neoplasm of breast; Z98.890 Other specified postprocedural states; Z92.21 Personal history of antineoplastic chemotherapy
CPT/HCPCS: 77063; 77067

== ENCOUNTER 2019-11-02 01:25 | Outpatient (CLI) | payer OTHER, SELFPAY ==
--- NOTE | 2019-11-02 15:44 | DI.DEXA_ITS ---
EXAM: XR DEXA BONE DENSITY W/WO DARELL CLINICAL HISTORY: BREAST CA,C50.812,Z17.0, ON PROLONGED AI TECHNIQUE: COMPARISON: No exams were available for comparison FINDINGS: Lateral Spine Image: Unremarkable. No compression deformities identified. Left hip: Total T-Score: -0.4 Total Z-Score: 0.5 T- and Z-scores: Within normal limits. Lumbar Spine: Total T-Score: -0.4 Total Z-Score: 0.9 T- and Z-scores: Within normal limits. IMPRESSION: No evidence of osteoporosis.
== END 2019-11-02 01:45 ==
PROVIDERS: PCP Family Medicine; Visit Provider Internal Medicine Hematology & Oncology
DX: C50.812 Malignant neoplasm of overlapping sites of left female breast (principal); Z17.0 Estrogen receptor positive status [ER+]; Z79.899 Other long term (current) drug therapy; Z13.820 Encounter for screening for osteoporosis
CPT/HCPCS: 77080

== ENCOUNTER 2020-02-22 04:55 | Outpatient (CLI) | payer OTHER, SELFPAY ==
[2020-02-22 15:15] LABS: Abs Immature Grans 0.01 10^3/uL (0.0-0.06); Absolute Basophil Count 0.02 10^3/uL (0.0-0.2); Absolute Eosinophil Count 0.02 10^3/uL (0.0-0.7); Absolute Lymphocyte Count 1.34 10^3/uL (1.2-3.4); Absolute Monocyte Count 0.37 10^3/uL (0.1-0.8); Absolute Neutrophil Count 2.65 10^3/uL (1.2-6.7); Basophils % 0.5; Eosinophils % 0.5; HCT 41.1 % (36.0-46.0); HGB 13.7 g/dL (11.2-15.7); Immature Grans % 0.2; Lymphocytes % 30.4; MCHC 33.3 % (32.0-36.0); MPV 9.8 fL (8.0-11.0); Monocytes % 8.4; Nucleated RBC 0 %; Platelet Count 192 10^3/uL (130-400); RBC 4.28 10^6/uL (3.93-5.22); RDW 12.5 % (11.7-14.6); RDW-SD 44.4 fL; WBC 4.41 10^3/uL (4.4-10.8)
[2020-02-22 15:31] LABS: ALT 24 U/L (14-59); AST 21 U/L (15-37); Albumin 3.7 g/dL (3.4-5.0); Alkaline Phosphatase 65 U/L (46-116); Anion Gap 7.4 mmol/L (3-11); BUN 19 mg/dL (7-18); Bilirubin, Total 0.4 mg/dL (0.2-1.0); CO2 29.6 mmol/L (21.0-32.0); CREATININE 0.66 mg/dL (0.55-1.02); Calcium 10.1 mg/dL (8.5-10.1); Chloride 105 mmol/L (98-107); Glucose 113 mg/dL (74-106); Sodium 142 mmol/L (136-145); Total Protein 6.9 g/dL (6.4-8.2)
== END 2020-02-22 05:15 ==
PROVIDERS: PCP Family Medicine; Visit Provider Internal Medicine Hematology & Oncology
DX: C50.812 Malignant neoplasm of overlapping sites of left female breast (principal); Z17.0 Estrogen receptor positive status [ER+]
CPT/HCPCS: 36415; 80053; 85025

== ENCOUNTER 2020-03-26 01:29 | Outpatient (CLI) | payer OTHER, SELFPAY ==
--- NOTE | 2020-03-26 | DI.US_ITS ---
EXAM: US THYROID CLINICAL HISTORY: MULTI NODULAR GOITER,E04.2. TECHNIQUE: Ultrasound thyroid performed using standard protocol. COMPARISON: US US thyroid from 01/26/[address] CHEST/ABD/PEL W from 04/25/2019 FINDINGS: ISTHMUS: 3 mm RIGHT LOBE: Size: 5.1 x 1.8 x 1.9 cm Echogenicity: Normal. Vascularity: Normal. Nodules: There are multiple nodules almost all of which are less than 1 cm. The largest nodule measu res 1 x 0.9 x 1.3 cm. It contains both cystic and solid components. Solid components are isoechoic. There are a few echogenic foci within this nodule. LEFT LOBE: Size: 4.6 x 1.3 x 1.4 cm Echogenicity: Normal. Vascularity: Normal. Nodules: There are multiple small predominantly cystic less than 1 cm nodules present. No suspicious left thyroid nodules are seen. OTHER FINDINGS: None. IMPRESSION: Multinodular thyroid gland. The largest nodule is in the right lobe and measures 1 x 0.9 x 1.3 cm. It has a TI-RADS level of 3. A follow-up thyroid ultrasound is recommended for continued monitoring. DATA REPOSITORY:
== END 2020-03-26 01:49 ==
PROVIDERS: PCP Family Medicine; Visit Provider Radiology Radiation Oncology
DX: E04.2 Nontoxic multinodular goiter (principal)
CPT/HCPCS: 76536

== ENCOUNTER 2020-05-02 05:00 | Outpatient (CLI) | payer OTHER, SELFPAY ==
[2020-05-02 12:20] LABS: HCT 38.8 % (36.0-46.0); HGB 13.1 g/dL (11.2-15.7); MCH 31.6 pg (27.0-33.0); MCHC 33.8 % (32.0-36.0); MCV 93.7 fL (80-95); Platelet Count 172 10^3/uL (130-400); RBC 4.14 10^6/uL (3.93-5.22); RDW 12.2 % (11.7-14.6); RDW-SD 42.6 fL; WBC 3.25 10^3/uL (4.4-10.8)
[2020-05-02 12:41] LABS: ALT 19 U/L (14-59); AST 17 U/L (15-37); Albumin 3.6 g/dL (3.4-5.0); Alkaline Phosphatase 53 U/L (46-116); Anion Gap 6.4 mmol/L (3-11); BUN 26 mg/dL (7-18); Bilirubin, Total 0.4 mg/dL (0.2-1.0); CO2 28.6 mmol/L (21.0-32.0); CREATININE 0.67 mg/dL (0.55-1.02); Calcium 8.8 mg/dL (8.5-10.1); Chloride 106 mmol/L (98-107); Glucose 120 mg/dL (74-106); Sodium 141 mmol/L (136-145); TSH 2.35 uIU/mL (0.36-3.74); Total Protein 6.6 g/dL (6.4-8.2)
[2020-05-02 12:56] LABS: Vitamin D 25 Total 32.4 ng/ml (30-100)
[2020-05-03 09:26] LABS: CA 125 5 U/mL (<30)
== END 2020-05-02 05:20 ==
PROVIDERS: PCP Family Medicine; Visit Provider Family Medicine
DX: E04.1 Nontoxic single thyroid nodule (principal); E55.9 Vitamin D deficiency, unspecified; C50.912 Malignant neoplasm of unspecified site of left female breast
CPT/HCPCS: 36415; 80053; 82306; 85027; 86304; 84443

== ENCOUNTER 2020-05-08 23:26 | Outpatient (CLI) | payer OTHER, SELFPAY ==
--- NOTE | 2020-05-08 12:25 | DI.RAD_ITS ---
EXAM: XR CHEST 2V PA LATERAL CLINICAL HISTORY: SOB on exertion/recent hx of breast cancer, R06.02. TECHNIQUE: 2D digital imaging was performed. COMPARISON: CR XR CHEST 2V PA LATERAL from 08/20/2018 FINDINGS: Heart size is normal. The mediastinum is not widened. Lungs are clear. No confluent infiltrates nor pleural effusions. Minor scarring left lower lobe pos terior basal segment is again noted. The right super cave Port-A-Cath has been removed. There is no pneumothorax. IMPRESSION: No acute pulmonary findings.The Port-A-Cath has been removed. DATA REPOSITORY: RADIATION DOSE DELIVERED:
== END 2020-05-08 23:46 ==
PROVIDERS: PCP Family Medicine; Visit Provider Family Medicine
DX: R06.02 Shortness of breath (principal); Z85.3 Personal history of malignant neoplasm of breast
CPT/HCPCS: 71046

== ENCOUNTER 2020-06-03 01:24 | Outpatient (CLI) | payer OTHER, SELFPAY ==
--- NOTE | 2020-06-03 08:00 | DI.US_ITS ---
EXAM: US PELVIS TRANSVAGINAL CLINICAL HISTORY: hx of enlarged uterus,PELVIC FULLNESS,R19.00, H/O BREAST CA TECHNIQUE: Ultrasound of the pelvis was performed both transabdominal and transvaginal. COMPARISON: US US THYROID from 03/26/2020 FINDINGS: UTERUS: Measures 7.7 cm length x 5.7 cm AP x 5.2 cm wide. There is a large 5.2 x 5.7 x 5.2 centimeter fibroid at the level fundus.This large fibroid contains h yperechoic foci which are probably small calcifications therein. Size this fibroid obscures measurem ent of the endometrial thickness. There is no obvious fluid in the endometrial canal. CERVIX: There are no obvious nabothian cysts. RIGHT OVARY: Right ovary is not able to be seen on today's study LEFT OVARY: Measures 1.8 x 1.0 x 1.3 centimeter cm No significant cysts nor masses evident in the left ovary. CUL-DE-SAC: No free fluid evident. IMPRESSION: 1. There is a solitary large 5.7 x 5.2 centimeter uterine fibroid the mid-upper uterus. This prevent s adequate visualization of the endometrium. 2. Right ovary is not able to be seen. Left ovary is not enlarged. 3. No free fluid evident in the adnexal regions and cul-de-sac. DATA REPOSITORY:
== END 2020-06-03 01:44 ==
PROVIDERS: PCP Family Medicine; Visit Provider Obstetrics & Gynecology Gynecology
DX: D25.9 Leiomyoma of uterus, unspecified (principal); R19.09 Other intra-abdominal and pelvic swelling, mass and lump; Z85.3 Personal history of malignant neoplasm of breast
CPT/HCPCS: 76830; 76856

== ENCOUNTER 2020-06-13 03:27 | Outpatient (CLI) | payer OTHER, SELFPAY ==
--- NOTE | 2020-06-13 | DI.MAMMO_ITS ---
EXAM: MG MAMMO SCREENING 60 MIN DUR CLINICAL HISTORY: SCREENING, PERSONAL H/O BREAST CA,Z12.31,S/P XRT FOR LT BREAST CA TECHNIQUE: Bilateral full field digital CC and MLO mammographic images were obtained with 3D tomosyn thesis and utilizing computer aided detection (CAD). COMPARISON: Available for comparison. FINDINGS: Masses/Architectural Distortion: None seen. Microcalcifications: No suspicious pleomorphic-type are seen. Skin Thickening/Nipple Retraction: None. IMPRESSION: 1. No significant interval change with no specific features of malignancy noted. 2. Unless there is more urgent need, screening mammography is recommended, as per [place] [employer] guidelines. BI-RADS Category 1 - Negative Breast Density - Category C - Heterogeneously dense Breast density category C or D implies that the patient has dense breast tissue. Dense breast tissue is very common and is not abnormal but dense breast tissue can make it harder to find cancer on a ma mmogram. Also, dense breast tissue may increase their breast cancer risk. This information about the result of the mammogram report was provided to the patient to raise their awareness. Use this report when you speak with the patient about their risks for breast cancer, which includes their family hist ory. At that time, you may recommend for more screening tests (Ultrasound or MRI) as they might be us eful based on their risk. A negative radiographic report should not delay biopsy if a dominant or clinically suspicious mass is present. Up to ten percent of cancers are not identified on mammography. A negative report may reinforce clinical impression. Adenosis and dense breasts may obscure an underlying neoplasm. False positive reports average 6 to 10%. Patient will receive a letter notifying them of these results.
== END 2020-06-13 03:47 ==
PROVIDERS: PCP Family Medicine; Visit Provider Radiology Radiation Oncology
DX: Z12.31 Encounter for screening mammogram for malignant neoplasm of breast (principal); Z85.3 Personal history of malignant neoplasm of breast
CPT/HCPCS: 77063; 77067

== ENCOUNTER 2020-09-05 07:38 | Outpatient (CLI) | payer OTHER, SELFPAY ==
[2020-09-06 13:29] LABS: COVID-19 RT-PCR UVMMC Result Negative (Negative)
== END 2020-09-05 07:39 | disposition home or self-care (01) ==
PROVIDERS: PCP Family Medicine; Visit Provider Nurse Practitioner Family
DX: Z20.822 Contact with and (suspected) exposure to COVID-19 (principal)
CPT/HCPCS: U0003

== ENCOUNTER 2021-03-27 02:52 | Outpatient (CLI) | payer OTHER, SELFPAY ==
[2021-03-27 13:39] LABS: Abs Immature Grans 0.01 10^3/uL (0.0-0.06); Absolute Basophil Count 0.05 10^3/uL (0.0-0.2); Absolute Eosinophil Count 0.08 10^3/uL (0.0-0.7); Absolute Lymphocyte Count 1.86 10^3/uL (1.2-3.4); Absolute Neutrophil Count 2.49 10^3/uL (1.2-6.7); Eosinophils % 1.6; HCT 41.4 % (36.0-46.0); HGB 13.5 g/dL (11.2-15.7); Immature Grans % 0.2; MCHC 32.6 % (32.0-36.0); MCV 95.2 fL (80-95); MPV 9.5 fL (8.0-11.0); Monocytes % 8.2; Nucleated RBC 0 %; Platelet Count 180 10^3/uL (130-400); RBC 4.35 10^6/uL (3.93-5.22); RDW 11.9 % (11.7-14.6); RDW-SD 41.9 fL; WBC 4.89 10^3/uL (4.4-10.8)
[2021-03-27 13:55] LABS: ALT 22 U/L (14-59); AST 21 U/L (15-37); Albumin 3.9 g/dL (3.4-5.0); Alkaline Phosphatase 86 U/L (46-116); Anion Gap 4.1 mmol/L (3-11); BUN 26 mg/dL (7-18); Bilirubin, Total 0.5 mg/dL (0.2-1.0); CO2 32.9 mmol/L (21.0-32.0); CREATININE 0.8 mg/dL (0.55-1.02); Calcium 9.6 mg/dL (8.5-10.1); Chloride 104 mmol/L (98-107); Glucose 108 mg/dL (74-106); Potassium 4.2 mmol/L (3.5-5.1); Sodium 141 mmol/L (136-145); Total Protein 7.7 g/dL (6.4-8.2)
== END 2021-03-27 02:53 | disposition home or self-care (01) ==
LOC: LBO 02:52
PROVIDERS: PCP Family Medicine; Visit Provider Internal Medicine Hematology & Oncology
DX: C50.812 Malignant neoplasm of overlapping sites of left female breast (principal); Z17.0 Estrogen receptor positive status [ER+]
CPT/HCPCS: 36415; 80053; 85025

== ENCOUNTER 2021-05-08 02:32 | Outpatient (CLI) | payer OTHER, SELFPAY ==
[2021-05-08 12:00] LABS: Calculated LDL 169 mg/dL (<100); Cholesterol 251 mg/dL (<200); HDL Cholesterol 71 mg/dL (40-60); Triglyceride 58 mg/dL (<150)
[2021-05-08 12:25] LABS: Vitamin D 25 Total 38.3 ng/mL (30-100)
== END 2021-05-08 02:33 | disposition home or self-care (01) ==
LOC: LBO 02:32
PROVIDERS: Family Medicine; PCP Family Medicine; Visit Provider Family Medicine
DX: E55.9 Vitamin D deficiency, unspecified (principal); Z13.220 Encounter for screening for lipoid disorders
CPT/HCPCS: 36415; 80061; 82306

== ENCOUNTER 2021-06-16 02:02 | Outpatient (CLI) | payer OTHER, SELFPAY ==
--- NOTE | 2021-06-16 14:10 | DI.MAMMO_ITS ---
Exam(s) MG MAMMO SCREENING 60 MIN DUR EXAM: MG MAMMO SCREENING 60 MIN DUR CLINICAL HISTORY: breast cancer screening,personal h/o breast ca,z85.3. TECHNIQUE: Bilateral full field digital CC and MLO mammographic images were obtained with 3D tomosyn thesis and utilizing computer aided detection (CAD). COMPARISON: Prior mammograms were reviewed, the most recent being May 2020. FINDINGS: There has been no significant change in appearance and distribution of the fibroglandular tissue. Left breast lumpectomy site remains stable. No new masses nor malignant-appearing microcalcification groups. There is no significant architectural distortion. IMPRESSION: No radiographic evidence of malignancy. Stable appearance of the lumpectomy site in the left breast. BI-RADS Category 2 - Benign Findings Breast Density - Category C - Heterogeneously dense Breast density Category C or D implies that the patient has dense breast tissue. Dense breast tissue can make it harder to find cancer on a mammogram. Dense breast tissue is also associated with an incr eased risk of breast cancer. This information about the result of the mammogram report was provided to the patient to raise their awareness. Use this report when you speak with the patient about their risks for breast cancer, which includes their family history. At that time, you may recommend additional screening tests (Ultrasoun d or MRI) as these tests may add significant information. A negative radiographic report should not delay biopsy if a dominant or clinically suspicious mass is present. Up to ten percent of cancers are not identified on mammography. A negative report may reinforce clinical impression. Adenosis and dense breasts may obscure an underlying neoplasm. False positive reports average 6 to 10%. Patient will receive a letter notifying them of these results.
== END 2021-06-16 02:22 ==
PROVIDERS: PCP Family Medicine; Visit Provider Family Medicine
DX: Z12.31 Encounter for screening mammogram for malignant neoplasm of breast (principal); Z85.3 Personal history of malignant neoplasm of breast; Z98.890 Other specified postprocedural states
CPT/HCPCS: 77063; 77067

== ENCOUNTER 2021-10-24 01:41 | Outpatient (CLI) | payer OTHER, SELFPAY ==
[2021-10-24 12:37] LABS: Calculated LDL 166 mg/dL (<100); Cholesterol 255 mg/dL (<200); HDL Cholesterol 76 mg/dL (40-60); Magnesium 1.9 mg/dL (1.8-2.4); Triglyceride 68 mg/dL (<150)
== END 2021-10-24 01:42 | disposition home or self-care (01) ==
LOC: LBO 01:42
PROVIDERS: PCP Family Medicine; Visit Provider Family Medicine
DX: E83.42 Hypomagnesemia (principal); R79.89 Other specified abnormal findings of blood chemistry
CPT/HCPCS: 36415; 80061; 83735

== ENCOUNTER 2022-04-11 09:41 | Emergency (ER) | payer OTHER, SELFPAY ==
[2022-04-11] VITALS (17 sets, daily range): BP systolic 116–135; BP diastolic 52–71; PULSE 72–98; RESP 10–22; TEMP 36.5; O2SAT 94–99
--- NOTE | 2022-04-11 09:45 | RT.EKG_ITS ---
APPROVED REPORT Exam: Resting ECG Reason for Exam: weakness Patient Location: E HR:79 bpm ECG Measurements Heart Rate 79 AXIS AR 151 P 62 QRSd 88 QRS -36 QT 384 T 35 QTc 440 Conclusion Sinus rhythm...normal P axis, V-rate 60- 99 normal sinus rhythm, left axis, t wave inversion V1 flattedning V2 V3
--- NOTE | 2022-04-11 09:45 | DI.CT_ITS ---
Exam(s) CT ABDOMEN PELVIS W EXAM: CT ABDOMEN PELVIS W INDICATION: bloody diarrhea,. COMPARISON: CT CT CHEST/ABD/PEL W from 04/25/2019 TECHNIQUE: FINDINGS: CT examination of the abdomen and pelvis was performed with intravenous infusion of 100 cc of Omnipaq ue 350. Images obtained through the lung bases are unremarkable. The liver is unremarkable in appearance except for stable presumed hemangioma of the caudate lobe per iod. Note is made of cholelithiasis, bile ducts are CT normal. Pancreas appears normal. Spleen is unremarkable in appearance. Adrenals appear normal. The kidneys are unremarkable with no evidence of hydronephrosis, nephrolithiasis, or renal mass.. Ur inary bladder unremarkable. Abdominal aorta is of normal diameter and no major vascular abnormality is seen. No abdominal wall hernia. No abdominal or pelvic adenopathy. Calcified uterine fibroids noted period. Appendix is not specifically visualized and has probably been surgically removed period. No evidence of diverticulitis or bowel obstruction. There is marked wall thickening and edema of the descending and sigmoid colon with associated pericolonic fat edema, findings are consistent with colitis. IMPRESSION: The appearance of the descending and sigmoid colon is consistent with severe acute colitis without ev idence of obstruction or perforation. Cholelithiasis noted. Stable presumed hemangioma of caudate lobe of the liver. RADIATION DOSE DELIVERED: 1,013.65mGy.cm Total DLP 1,013.65mGy.cm Total DLP RADIATION OPTIMIZATION: All CT scans at this facility use at least one of these dose optimization te chniques: automated exposure control; mA and/or kV adjustment per patient size (includes targeted exa ms where dose is matched to clinical indication); or iterative reconstruction.
[2022-04-11 10:08] LABS: Abs Immature Grans 0.01 10^3/uL (0.0-0.06); Absolute Basophil Count 0.02 10^3/uL (0.0-0.2); Absolute Eosinophil Count 0.02 10^3/uL (0.0-0.7); Absolute Monocyte Count 0.46 10^3/uL (0.1-0.8); Absolute Neutrophil Count 4.68 10^3/uL (1.2-6.7); Basophils % 0.3; Eosinophils % 0.3; HCT 42.6 % (36.0-46.0); HGB 14.1 g/dL (11.2-15.7); Immature Grans % 0.2; Lymphocytes % 21.2; MCH 31.1 pg (27.0-33.0); MCHC 33.1 % (32.0-36.0); MCV 94 fL (80-95); MPV 9.4 fL (8.0-11.0); Platelet Count 173 10^3/uL (130-400); RBC 4.53 10^6/uL (3.93-5.22); RDW 12.7 % (11.7-14.6); RDW-SD 43.9 fL; WBC 6.59 10^3/uL (4.4-10.8)
[2022-04-11 10:09] LABS: Lactate 1.2 mmol/L (0.6-1.4)
[2022-04-11] MEDS: Lactated Ringers 1,000 ML 1000 ML IV (10:24)
[2022-04-11 10:29] LABS: ALT 19 U/L (14-59); AST 17 U/L (15-37); Albumin 3.8 g/dL (3.4-5.0); Alkaline Phosphatase 86 U/L (46-116); Anion Gap 9.7 mmol/L (3-11); BUN 25 mg/dL (7-18); Bilirubin, Total 0.6 mg/dL (0.2-1.0); CO2 28.3 mmol/L (21.0-32.0); CREATININE 0.9 mg/dL (0.55-1.02); Calcium 9.1 mg/dL (8.5-10.1); Chloride 104 mmol/L (98-107); Estimated GFR 72.73 (mL/min/1.73m2); Glucose 145 mg/dL (74-106); INR 0.9 (0.9-1.1); Lipase 53 U/L (73-393); Potassium 3.5 mmol/L (3.5-5.1); Prothrombin Time 9.4 sec (9.3-11.0); Sodium 142 mmol/L (136-145); Total Protein 7.7 g/dL (6.4-8.2)
[2022-04-11] MEDS: Omnipaque 350 MG/ML 500 ML BTL-Imaging package IJ (11:17)
[2022-04-11] MEDS: Normal Saline - Diluent 50 ML VIAL IJ (11:18)
[2022-04-11] MEDS: Normal Saline Flush 10 ML SYR IVP (11:18)
[2022-04-11 11:32] LABS: C Diff PCR Negative (Negative)
--- NOTE | 2022-04-11 11:37 | DI.VRAD_ITS ---
PROCEDURE INFORMATION: Exam: CT Abdomen And Pelvis With Contrast Exam date and time: 04/11/2022 11:15 AM Age: 61 years old Clinical indication: Other: Bloody diarrhea; Prior surgery; Surgery date: 6+ months; Surgery type: Appendectomy; Patient HX: HX of breast CA TECHNIQUE: Imaging protocol: Computed tomography of the abdomen and pelvis with contrast. Radiation optimization: All CT scans at this facility use at least one of these dose optimization techniques: automated exposure control; mA and/or kV adjustment per patient size (includes targeted exams where dose is matched to clinical indication); or iterative reconstruction. Contrast material: OMNIPAQUE 350; Contrast volume: 100 ml; Contrast route: INTRAVENOUS (IV); COMPARISON: CT CHEST/ABD/PEL W 04/25/2019 9:15 AM FINDINGS: Tubes, catheters and devices: Surgical clips in the right lower quadrant Liver: 2.4 cm low-attenuation area in the caudate lobe series 4, image 18.. This was present on the prior study. It measures 2.2 by 1.8 cm. Previously in 2019 it measured 2.8 by 2.7 cm. It is decreasing in size.. Gallbladder and bile ducts: Gallstone in the gallbladder. Pancreas: Normal. No ductal dilation. Spleen: Normal. No splenomegaly. Adrenal glands: Normal. No mass. Kidneys and ureters: Normal. No hydronephrosis. Stomach and bowel: Low-attenuation bowel wall thickening along the descending colon and rectosigmoid consistent with colitis. Differential diagnosis includes infectious and inflammatory etiologies.. Appendix: No evidence of appendicitis. Intraperitoneal space: Unremarkable. No free air. No significant fluid collection. Vasculature: Unremarkable. No abdominal aortic aneurysm. Lymph nodes: Unremarkable. No enlarged lymph nodes. Urinary bladder: Unremarkable as visualized. Reproductive: Calcified fibroids in the uterus Bones/joints: Unremarkable. No acute fracture. Soft tissues: Unremarkable. IMPRESSION: 1. Low-attenuation bowel wall thickening along the descending colon and rectosigmoid consistent with colitis. Differential diagnosis includes infectious and inflammatory etiologies.. 2. Gallstone in the gallbladder. 3. 2.4 cm low-attenuation area in the caudate lobe series 4, image 18.. This was present on the prior study. It measures 2.2 by 1.8 cm. Previously in 2019 it measured 2.8 by 2.7 cm. It is decreasing in size.. Dictated and Authenticated by: Amie Gomez MD. Ordering:SUSAN Hurtado MD
--- NOTE | 2022-04-11 11:58 | ED.GENADUL_ITS ---
Discharge Plan Disposition Patient Disposition: Home Condition: Stable Discharge Details Clinical Impression: Colitis Primary Care Provider: Vivian Carlton ED Provider: Genesis Yee Home Meds and New Rx's Prescriptions: New azithromycin 500 mg tablet 500 mg PO DAILY 3 Days Qty: 3 0RF Saccharomyces boulardii [Florastor] 250 mg capsule 250 mg PO BID Qty: 14 0RF Continued letrozole 2.5 mg tablet 2.5 mg PO HS Florajen Acidophilus 460 mg (20 billion cell) capsule 460 mg PO DAILY Qty: 90 0RF Rx Instructions: administer on an empty stomach daily calcium carbonate-vitamin D3 [Calcium 600 with Vitamin D3] 600 mg(1,500mg) - 500 unit capsule 2 cap PO DAILY meloxicam 15 mg tablet 15 mg PO DAILY Qty: 30 1RF Rx Instructions: take one tablet daily with food for 2 weeks and repeat if needed omeprazole 20 mg capsule,delayed release(DR/EC) 20 mg PO DAILY Qty: 90 3RF Discharge Instructions Additional Instructions: Take antibiotic as prescribed Yogurt daily on antibiotic Recheck on Wednesday recommended Please return immediately should you have weakness, dizziness, or persistent bloody diarrhea greater than 48 hours May need outpatient colonoscopy at the discretion of your doctor Referrals: Vivian Carlton MD [Primary Care Provider] - 1 day Discharge Data Discharge Date/Time-TO BE ENTERED AT DEPARTURE: 04/11/22 12:21 Medical Decision Making Hemodynamically stable, well in appearance CT scan shows evidence of colitis, consistent with patient's bloody stool No anticoagulation -Antibiotics secondary to possibility of bacterial cause of symptoms and in high risk category for colitis. Blood Blood cultures pending at this time Afebrile No acute distress Past med admission, however patient prefers to be discharged home and feels comfortable discharge home?hemodynamically stable, afebrile, nontoxic She will need close outpatient reassessment in 24 to 48 hours and is aware that she may need outpatient colonoscopy at the discretion of her primary care physician Return precautions reviewed and patient expressed understanding Placed on azithromycin 500 mg x 3 days Medical Records Medical records reviewed: Yes I reviewed the patient's medical records. Lab Data Lab results reviewed: Yes I reviewed the patient's lab results. Sign Out No HPI General Date/Time Provider Initiated Documentation: 04/11/22 09:53 . HPI Narrative: This 61-year-old female presents with report of abdominal pain and bloody diarrhea that started about 3:00 yesterday. Has been around the dog but denies known exposures. Has some abdominal pain prior to diarrhea. States that she has pain prior to onset of diarrhea. She denies any chest pain or shortness of breath. Denies any dizziness or weakness. She has any history of ant icoagulation does not take nonsteroidals at home. Denies history of GI bleed or alcohol consumption. Has some mild pain in her left lower quadrant. Denies any urinary symptoms. Related Data Home Medications Medication Instructions Recorded Confirmed letrozole 2.5 mg tablet 2.5 mg PO HS 03/01/19 04/11/22 Lactobacillus acidophilus 20 460 mg PO DAILY #90 caps 07/31/20 04/11/22 billion cell capsule (Florajen Acidophilus) calcium carbonate 600 mg-vitamin 2 cap PO DAILY 05/07/21 04/11/22 D3 12.5 mcg (500 unit) capsule (Calcium 600 with Vitamin D3) meloxicam 15 mg tablet 15 mg PO DAILY #30 tabs 05/07/21 04/11/22 omeprazole 20 mg capsule,delayed 20 mg PO DAILY #90 caps 03/17/22 04/11/22 release Saccharomyces boulardii 250 mg 250 mg PO BID #14 caps 04/11/22 capsule (Florastor) azithromycin 500 mg tablet 500 mg PO DAILY 3 days #3 tabs 04/11/22 Previous Rx's Medication Instructions Recorded Lactobacillus acidophilus 20 460 mg PO DAILY #90 caps 07/31/20 billion cell capsule (Florajen Acidophilus) meloxicam 15 mg tablet 15 mg PO DAILY #30 tabs 05/07/21 omeprazole 20 mg capsule,delayed 20 mg PO DAILY #90 caps 03/17/22 release Saccharomyces boulardii 250 mg 250 mg PO BID #14 caps 04/11/22 capsule (Florastor) azithromycin 500 mg tablet 500 mg PO DAILY 3 days #3 tabs 04/11/22 Allergies Allergy/AdvReac Type Severity Reaction Status Date / Time promethazine [From Phenergan] AdvReac Intermediate akathisias Verified 04/11/22 09:54 sodium chloride for AdvReac Intermediate Vomiting Verified 04/11/22 09:54 inhalation [From Saline] General Stated Complaint: GI Bleed SATISH: 3 Review of Systems All systems reviewed & are unremarkable except as noted in HPI and below PFSH All Active Problems (Updated 04/11/22 @ 12:04 by GARETH Clark) Colitis (Acute) High serum low density lipoprotein (LDL) cholesterol (Acute) Uterine fibroid (Acute) Family hx of ovarian malignancy (Acute) Pt's mother 74yo. Pt had neg genetic testing Breast cancer, left (Chronic) 05/10/18. Stage 3 Lobular invasive BreastCA. ER+/MD+. Her2/emily Neg. dD1mI1c. Genetic testing (80genes) neg. post lumpectomy/chemo/radiation done 2019/on Letrozole Encounter for immunization (Acute) Acute right lower quadrant pain (Acute) Acute appendicitis (Acute) Colon cancer screening (Acute) Anemia (Chronic) Pneumonia (Acute) Reflux esophagitis (Acute) DVT prophylaxis (Acute) Discharge planning issues (Acute) Intractable nausea and vomiting (Acute) Dehydration (Acute) Traumatic hematoma of forehead (Acute) Closed head injury (Acute) Vasovagal syncope (Acute) Orthostatic hypotension (Acute) Breast cancer metastasized to axillary lymph node (Acute) 01/2019 last radiation treatment Drug-induced leukopenia (Acute) Thrombocytopenia (Chronic) Medical History (Updated 04/11/22 @ 12:04 by GARETH Clark) Breast cancer Colonoscopy planned (~05/2019) Pelvic fullness in female Port-A-Cath in place removed 02/2019 Surgical History H/O: section (~1984) History of lumpectomy of left breast (~2018) 2018; [facility]; INCLUDING AXILLARY DISSECTION History of rotator cuff surgery Left History of surgery Tumor removed from left jaw/neck. Family History (Updated 05/31/20 @ 15:27 by Meena Milner) Mother , AGE 74 Ovarian cancer Father , AGE 65 Alcohol abuse Lung cancer Sister Heart disease RHEUMATIC Sister Heart disease MITRAL PROLAPSE Maternal Grandfather , AGE 92 Lung cancer Son Asthma Paternal Grandfather , age 92 No problems noted. Maternal Grandmother , age 86 No problems noted. Paternal Grandmother No problems noted. Paternal Aunt Breast cancer Paternal Cousin Breast cancer Social History (Updated 05/07/21 @ 15:06 by Anna Elam) Smoking/Tobacco Use Status: Former Tobacco Use tobacco type: cigarettes Quit Date: 05/24/84 Tobacco: How many years used: 5 Second Hand Exposure: Yes Smoking risk assessment performed?: Yes Alcohol Intake: former Drug use: Never Substance use type: does not use Caregiver/Support person: No Household members: spouse Housing: house Number of Children: 1 Communication Needs: Corrective Lenses Do you need help understanding health information?: Never current occupation: retired dental senior credit officer. relocated from [place] 2018. Pets and animals: No Sexually active: Yes Do you think of yourself as: straight/heterosexual Current gender identity: male What is your relationship status?: How often do you talk on the phone with friends or family?: three or more times per week How often do you get together with friends or relatives?: three or more times per week How often do you attend cheondoism or sikhism services?: 1-3 times per year Do you belong to any clubs or organized social groups?: no Panel score (0-1 are the most socially isolated patients): 2 Frequency: does not exercise Sheridan/Sikhism: Mu-Ism Special sheridan needs: No Seatbelt use: always Helmet use: No Drive intox or ride w/intox hi low truck driver: No Do you feel safe at home: Yes Do you feel safe in your relationship?: Yes Victim of physical abuse: No Victim of emotional abuse: No Victim of sexual abuse: No Would you like helpful sources: No Exam Const General: cooperative, comfortable and no acute distress Orientation: alert Eyes Pupils: PERRL Resp Effort & Inspection: normal respiratory effort Auscultation: clear to auscultation bilaterally Cardio Rate: regular rate Rhythm: regular rhythm GI Other: tenderness llq Neuro General: patient alert and patient oriented x3 Extrem Other: distal pulses intact Course Vital Signs Vital signs: Vital Signs Temperature 36.5 C 04/11/22 09:50 Pulse 98 H 04/11/22 09:50 Respiratory Rate 18 04/11/22 09:50 Blood Pressure 135/71 04/11/22 09:50 Pulse Oximetry 96 04/11/22 09:50 Temperature 36.5 C 04/11/22 09:50 Temperature Source Temporal Artery Scan 04/11/22 09:50 Pulse 82 04/11/22 11:46 Pulse 77 04/11/22 11:01 Respiratory Rate 15 04/11/22 11:01 Respiratory Effort Non-Labored 04/11/22 09:52 Blood Pressure 125/64 04/11/22 11:46 Blood Pressure Mean 78 04/11/22 11:46 Blood Pressure Position Sitting 04/11/22 09:50 Pulse Oximetry 96 04/11/22 11:46 Oxygen Delivery Method Room Air 04/11/22 09:50 Oxygen Flow Rate 0 04/11/22 09:50 Pain Level 5 04/11/22 09:50 Lab/Test Results Lab/Test Results: Laboratory Tests Range/Units 04/11/22 04/11/22 04/11/22 10:00 10:00 10:00 WBC (4.4-10.8) 10^3/uL 6.59 RBC (3.93-5.22) 10^6/uL 4.53 Hgb (11.2-15.7) g/dL 14.1 Hct (36.0-46.0) % 42.6 MCV (80-95) fL 94 MCH (27.0-33.0) pg 31.1 MCHC (32.0-36.0) % 33.1 RDW (11.7-14.6) % 12.7 Plt Count (130-400) 10^3/uL 173 MPV (8.0-11.0) fL 9.4 Immature Gran % 0.2 Neutrophils % 71.0 Lymphocytes % 21.2 Monocytes % 7.0 Eosinophils % 0.3 Basophils % 0.3 Nucleated RBC % (0.0-0.3) % 0.0 Absolute Neutrophils (1.2-6.7) 10^3/uL 4.68 Absolute Lymphocytes (1.2-3.4) 10^3/uL 1.40 Absolute Monocytes (0.1-0.8) 10^3/uL 0.46 Absolute Eosinophils (0.0-0.7) 10^3/uL 0.02 Absolute Basophils (0.0-0.2) 10^3/uL 0.02 PT (9.3-11.0) sec INR (0.9-1.1) VBG Lactate (0.6-1.4) mmol/L 1.2 Sodium (136-145) mmol/L 142 Potassium (3.5-5.1) mmol/L 3.5 Chloride (98-107) mmol/L 104 Carbon Dioxide (21.0-32.0) mmol/L 28.3 Anion Gap (3-11) mmol/L 9.7 BUN (7-18) mg/dL 25 H Creatinine (0.55-1.02) mg/dL 0.9 Est GFR (CKD-EPI 2020) (mL/min/1.73m2) 72.73 Glucose (74-106) mg/dL 145 H Calcium (8.5-10.1) mg/dL 9.1 Magnesium (1.8-2.4) mg/dL 2.0 Total Bilirubin (0.2-1.0) mg/dL 0.6 AST (15-37) U/L 17 ALT (14-59) U/L 19 Alkaline Phosphatase (46-116) U/L 86 Total Protein (6.4-8.2) g/dL 7.7 Albumin (3.4-5.0) g/dL 3.8 Lipase (73-393) U/L 53 Stl C.difficile Tox PCR (Negative) Patient ABO/Rh Antibody Screen Range/Units 04/11/22 04/11/22 04/11/22 10:00 10:00 10:30 WBC (4.4-10.8) 10^3/uL RBC (3.93-5.22) 10^6/uL Hgb (11.2-15.7) g/dL Hct (36.0-46.0) % MCV (80-95) fL MCH (27.0-33.0) pg MCHC (32.0-36.0) % RDW (11.7-14.6) % Plt Count (130-400) 10^3/uL MPV (8.0-11.0) fL Immature Gran % Neutrophils % Lymphocytes % Monocytes % Eosinophils % Basophils % Nucleated RBC % (0.0-0.3) % Absolute Neutrophils (1.2-6.7) 10^3/uL Absolute Lymphocytes (1.2-3.4) 10^3/uL Absolute Monocytes (0.1-0.8) 10^3/uL Absolute Eosinophils (0.0-0.7) 10^3/uL Absolute Basophils (0.0-0.2) 10^3/uL PT (9.3-11.0) sec 9.4 INR (0.9-1.1) 0.9 VBG Lactate (0.6-1.4) mmol/L Sodium (136-145) mmol/L Potassium (3.5-5.1) mmol/L Chloride (98-107) mmol/L Carbon Dioxide (21.0-32.0) mmol/L Anion Gap (3-11) mmol/L BUN (7-18) mg/dL Creatinine (0.55-1.02) mg/dL Est GFR (CKD-EPI 2020) (mL/min/1.73m2) Glucose (74-106) mg/dL Calcium (8.5-10.1) mg/dL Magnesium (1.8-2.4) mg/dL Total Bilirubin (0.2-1.0) mg/dL AST (15-37) U/L ALT (14-59) U/L Alkaline Phosphatase (46-116) U/L Total Protein (6.4-8.2) g/dL Albumin (3.4-5.0) g/dL Lipase (73-393) U/L Stl C.difficile Tox PCR (Negative) Negative Patient ABO/Rh O Positive Antibody Screen NEGATIVE
[2022-04-12 14:45] LABS: Campylobacter PCR Negative (Negative); Salmonella PCR Negative (Negative); Shiga Toxin PCR Negative (Negative); Shigella/Enteroinvasive Ecoli Negative (Negative)
== END 2022-04-11 12:21 | disposition home or self-care (01) ==
PROVIDERS: Emergency Provider Physician Assistant; PCP Family Medicine
DX: K52.9 Noninfective gastroenteritis and colitis, unspecified (principal)
CPT/HCPCS: 36415; 80053; 83690; 86850; 86900; 86901; 87493; 87505; 93005; 96360; 99284; 74177; 83605; 83735; 85025; 85610; 93010

== ENCOUNTER 2022-04-27 04:14 | Outpatient (CLI) | payer OTHER, SELFPAY ==
[2022-04-27 17:27] LABS: Iron 82 ug/dL (50-170)
[2022-04-29 09:58] LABS: CA 125 5 U/mL (<30)
== END 2022-04-27 04:15 | disposition home or self-care (01) ==
LOC: LBO 04:14
PROVIDERS: PCP Family Medicine; Visit Provider Family Medicine
DX: L65.9 Nonscarring hair loss, unspecified (principal); Z80.41 Family history of malignant neoplasm of ovary
CPT/HCPCS: 36415; 86304; 83540

== ENCOUNTER → 2022-05-05 01:31 | Outpatient (CLI) | payer OTHER, SELFPAY ==
--- NOTE | 2022-05-05 13:00 | DI.DEXA_ITS ---
Exam(s) XR DEXA BONE DENSITY W/WO DARELL EXAM: XR DEXA BONE DENSITY W/WO DARELL CLINICAL HISTORY: LT BREAST CA, OVERLAPPING SITES, C50.812, Z17.0 TECHNIQUE: COMPARISON: CR XR DEXA BONE DENSITY W/WO DARELL from 11/02/2019 FINDINGS: Lateral Spine Image: Unremarkable. No compression deformities identified. Left hip: Total T-Score: -0.6. This compares to -0.4 on the prior examination. Total Z-Score: 0.5 T- and Z-scores: Within normal limits. Lumbar Spine: Total T-Score: -0.2. This compares to -0.4 on the prior examination. Total Z-Score: 1.3 T- and Z-scores: Within normal limits. IMPRESSION: No evidence of osteoporosis.
== END ==
PROVIDERS: PCP Family Medicine; Visit Provider Internal Medicine Hematology & Oncology
DX: Z13.820 Encounter for screening for osteoporosis (principal); C50.812 Malignant neoplasm of overlapping sites of left female breast
CPT/HCPCS: 77080

== ENCOUNTER 2022-06-17 01:21 | Outpatient (CLI) | payer OTHER, SELFPAY ==
--- NOTE | 2022-06-17 10:55 | DI.MAMMO_ITS ---
Exam(s) MG MAMMO SCREENING 60 MIN DUR EXAM: MG MAMMO SCREENING 60 MIN DUR CLINICAL HISTORY: HX LT BREAST CA, C50.812, Z17.0 TECHNIQUE: Mammograms were interpreted according to the usual protocol including computer analysis w [facility] CAD system, tomosynthesis and C-view imaging. COMPARISON: 2017 through 2021 FINDINGS: The breasts are composed of heterogeneously dense fibroglandular densities, Breast Density category C . No suspicious masses or suspicious microcalcifications are seen. There is post lumpectomy scarring in the upper central left breast. No skin thickening or abnormal axillary lymph nodes are seen. There has been no significant change from prior exams. IMPRESSION: . BI-RADS Cat 2 - Benign Findings Yearly screening mammography is recommended. Breast Density Category C, heterogeneously Dense. The mammogram demonstrates the patient's breast tissue is dense. Dense breast tissue is very common a nd is not abnormal but dense breast tissue can make it harder to find cancer on a mammogram. Also, de nse breast tissue may increase breast cancer risk. This information about the result of the mammogram report was provided to the patient to raise their awareness. Use this report when you speak with the patient about their risks for breast cancer, which includes their family history. At that time, you may recommend additional screening tests (Ultrasound or MRI) as they might be useful based on their r isk. A negative radiographic report should not delay biopsy if a dominant or clinically suspicious mass is present. Up to ten percent of cancers are not identified on mammography. A negative report may reinforce clinical impression. Adenosis and dense breasts may obscure an underlying neoplasm. False positive reports average 6 to 10%.
== END 2022-06-17 01:41 ==
LOC: DI 01:21
PROVIDERS: PCP Family Medicine; Visit Provider Internal Medicine Hematology & Oncology
DX: Z12.31 Encounter for screening mammogram for malignant neoplasm of breast (principal); Z85.3 Personal history of malignant neoplasm of breast; Z17.0 Estrogen receptor positive status [ER+]; Z98.890 Other specified postprocedural states
CPT/HCPCS: 77063; 77067

== ENCOUNTER → 2023-06-17 02:48 | Outpatient (CLI) | payer OTHER, SELFPAY ==
--- NOTE | 2023-06-17 | DI.MAMMO_ITS ---
Exam(s) MG MAMMO SCREENING 60 MIN DUR EXAM: MG MAMMO SCREENING 60 MIN DUR CLINICAL HISTORY: LEFT BREAST CANCER C50.812 Z17.0 SCREENING FOR BREAST CANCER TECHNIQUE: Bilateral full field digital CC and MLO mammographic images were obtained with 3D tomosyn thesis and utilizing computer aided detection (CAD). COMPARISON: Available for comparison. FINDINGS: Masses/Architectural Distortion: The patient is status post left lumpectomy. No suspicious masses ar e seen. No new areas of architectural distortion are appreciated. Microcalcifications: No suspicious pleomorphic-type are seen. Skin Thickening/Nipple Retraction: None. IMPRESSION: 1. No significant interval change with no specific features of malignancy noted. 2. Unless there is more urgent need, screening mammography is recommended, as per [place] [employer] guidelines. BI-RADS Category 2 - Benign Findings Breast Density - Category C - Heterogeneously dense Breast density category C or D implies that the patient has dense breast tissue. Dense breast tissue is very common and is not abnormal but dense breast tissue can make it harder to find cancer on a ma mmogram. Also, dense breast tissue may increase their breast cancer risk. This information about the result of the mammogram report was provided to the patient to raise their awareness. Use this report when you speak with the patient about their risks for breast cancer, which includes their family hist ory. At that time, you may recommend for more screening tests (Ultrasound or MRI) as they might be us eful based on their risk. A negative radiographic report should not delay biopsy if a dominant or clinically suspicious mass is present. Up to ten percent of cancers are not identified on mammography. A negative report may reinforce clinical impression. Adenosis and dense breasts may obscure an underlying neoplasm. False positive reports average 6 to 10%. Patient will receive a letter notifying them of these results.
== END ==
PROVIDERS: PCP Family Medicine; Visit Provider Nurse Practitioner Family
DX: Z12.31 Encounter for screening mammogram for malignant neoplasm of breast (principal); Z17.0 Estrogen receptor positive status [ER+]; C50.812 Malignant neoplasm of overlapping sites of left female breast
CPT/HCPCS: 77063; 77067

== ENCOUNTER 2023-11-15 11:02 | Outpatient (REF) | payer OTHER, SELFPAY ==
--- NOTE | 2023-11-15 11:00 | PAPFT_PTH ---
PATIENT: Nakul Joseph LOC: [facility] U#:[id number] AGE/SX: 63/F ROOM: RE11/15/[address]: Saray Galdamez : 1960 BED: DIS: 11/15/2023 SPEC #: [id number] RECD: 11/15/23 13:01 STATUS: DARSHANA RERadha #: [id number] DEXTER: 11/15/23 11:[address]: Saray Galdamez DEPT: [facility] Cytology RECD BY: Genesis Hall ENTERED: 11/15/23 13:01 SP TYPE: PAPFT OTHR DR: Vivian Carlton Tissues: 1 - CX/ENDOCX FOR PAP SMEARS Procedures: PAP THIN PREP/[facility] Screening HPV DNA PROBE Comments: [id number] (HPV 16 & 18/45)
== END 2023-11-15 11:03 | disposition home or self-care (01) ==
LOC: LBN 11:02
PROVIDERS: PCP Family Medicine; Visit Provider Obstetrics & Gynecology Gynecology
DX: Z01.419 Encounter for gynecological examination (general) (routine) without abnormal findings (principal); R79.89 Other specified abnormal findings of blood chemistry
CPT/HCPCS: 88142; 87624

== ENCOUNTER 2023-11-17 01:57 | Outpatient (CLI) | payer OTHER, SELFPAY ==
[2023-11-17 12:28] LABS: ALT 21 U/L (14-59); AST 19 U/L (15-37); Albumin 3.7 g/dL (3.4-5.0); Alkaline Phosphatase 73 U/L (46-116); Anion Gap 10.9 mmol/L (3-11); BUN 30 mg/dL (7-18); Bilirubin, Total 0.69 mg/dL (0.2-1.0); CO2 27.1 mmol/L (21.0-32.0); CREATININE 0.7 mg/dL (0.55-1.02); Calcium 9.2 mg/dL (8.5-10.1); Calculated LDL 166 mg/dL (<100); Chloride 105 mmol/L (98-107); Cholesterol 256 mg/dL (<200); Estimated GFR 97.12 (mL/min/1.73m2); Glucose 107 mg/dL (74-106); HDL Cholesterol 76 mg/dL (40-60); Potassium 3.9 mmol/L (3.5-5.1); Sodium 143 mmol/L (136-145); Total Protein 7.4 g/dL (6.4-8.2); Triglyceride 70 mg/dL (<150)
== END 2023-11-17 01:58 | disposition home or self-care (01) ==
LOC: LOS 01:57
PROVIDERS: PCP Family Medicine; Visit Provider Obstetrics & Gynecology Gynecology
DX: C50.912 Malignant neoplasm of unspecified site of left female breast (principal); C77.3 Secondary and unspecified malignant neoplasm of axilla and upper limb lymph nodes; Z00.00 Encounter for general adult medical examination without abnormal findings
CPT/HCPCS: 36415; 80053; 80061

== ENCOUNTER 2024-06-01 03:48 | Outpatient (CLI) | payer OTHER, SELFPAY ==
--- NOTE | 2024-06-01 | DI.DEXA_ITS ---
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 COMPARISON: CR XR DEXA BONE DENSITY W/WO DARELL from 05/05/2022 FINDINGS: Performed on a [employer] unit. Lateral image: No compression fracture evident. Lumbar Spine total T-score: -0.1. This is within normal limits. Prior reading in April 2022 was -0.2. Hip total T-score:-0.6. This is within normal range. Prior reading in April 2022 was also -0.6. Independent reading at the level of the femoral neck yields T-score of -1.2. This is within osteope rafita range. Forearm total T-score: -0.9 which is within normal limits. IMPRESSION: Bone mineral density measures in the normal range although the reading at the femoral neck does sugge st an element of osteopenia at this level.. Fracture risk is low-moderate Note: Any spine fracture indicates 5x risk for subsequent spine fracture and 2x risk for subsequent h ip fracture. World Health Organization criteria for BMD interpretation classify patients: Normal...... T- Score at or above -1.0 Osteopenic... T- Score between -1.0 and -2.5 Osteoporosis... T-Score at or below -2.5
== END 2024-06-01 04:08 ==
LOC: DI 03:48
PROVIDERS: PCP Family Medicine; Visit Provider Internal Medicine Hematology & Oncology
DX: C50.812 Malignant neoplasm of overlapping sites of left female breast (principal); Z17.0 Estrogen receptor positive status [ER+]; Z79.899 Other long term (current) drug therapy
CPT/HCPCS: 77080

== ENCOUNTER 2024-06-19 01:55 | Outpatient (CLI) | payer OTHER, SELFPAY ==
--- NOTE | 2024-06-19 11:15 | DI.MAMMO_ITS ---
Exam(s) MG MAMMO SCREENING 60 MIN DUR EXAM: MG MAMMO SCREENING 60 MIN DUR CLINICAL HISTORY: LEFT BREAST CANCER C50.812 Z17.0 YEARLY MAMMO TECHNIQUE: Bilateral full field digital CC and MLO mammographic images were obtained with 3D tomosyn thesis and utilizing computer aided detection (CAD). COMPARISON: Available for comparison. FINDINGS: Masses/Architectural Distortion: There is a lumpectomy site again seen in the left breast. No suspic ious masses are seen. No new areas of architectural distortion are present. Microcalcifications: No suspicious pleomorphic-type are seen. Skin Thickening/Nipple Retraction: None. IMPRESSION: 1. No significant interval change with no specific features of malignancy noted. 2. Unless there is more urgent need, screening mammography is recommended, as per [employer] guidelines. 3. Findings were discussed with the patient on the date of the examination. BI-RADS Category 2 - Benign Findings Breast Density - Category C - Heterogeneously dense Breast density category C or D implies that the patient has dense breast tissue. Dense breast tissue is very common and is not abnormal but dense breast tissue can make it harder to find cancer on a ma mmogram. Also, dense breast tissue may increase their breast cancer risk. This information about the result of the mammogram report was provided to the patient to raise their awareness. Use this report when you speak with the patient about their risks for breast cancer, which includes their family hist ory. At that time, you may recommend for more screening tests (Ultrasound or MRI) as they might be us eful based on their risk. A negative radiographic report should not delay biopsy if a dominant or clinically suspicious mass is present. Up to ten percent of cancers are not identified on mammography. A negative report may reinforce clinical impression. Adenosis and dense breasts may obscure an underlying neoplasm. False positive reports average 6 to 10%. Patient will receive a letter notifying them of these results.
== END 2024-06-19 02:15 ==
LOC: DI 01:59
PROVIDERS: PCP Family Medicine; Visit Provider Internal Medicine Hematology & Oncology
DX: C50.812 Malignant neoplasm of overlapping sites of left female breast (principal); Z17.0 Estrogen receptor positive status [ER+]
CPT/HCPCS: 77063; 77067

== ENCOUNTER 2024-12-25 12:46 | Outpatient (CLI) | payer OTHER, SELFPAY ==
[2024-12-26 09:56] LABS: CA 125 7 U/mL (<30)
== END 2024-12-25 12:47 | disposition home or self-care (01) ==
LOC: LBO 12:47
PROVIDERS: PCP Family Medicine; Visit Provider Obstetrics & Gynecology
DX: Z80.41 Family history of malignant neoplasm of ovary (principal); C50.912 Malignant neoplasm of unspecified site of left female breast; C77.3 Secondary and unspecified malignant neoplasm of axilla and upper limb lymph nodes
CPT/HCPCS: 36415; 86304